=== PATIENT | male | born 1945 | race Caucasian/White ===

== ENCOUNTER 2017-12-23 12:42 | Inpatient (IN) ==
--- NOTE | 2017-12-23 13:26 | Emergency Department Note ---
ED Disposition Clinical Impression: Fracture, hip Qualifiers: Fracture type: closed Laterality: left Disposition: Admitted As Inpatient Condition on Discharge: Good Referrals: Ofe Wall [Primary Care Provider] - - Critical Care Critical Care Time: No Attestation: On 12/23/17, the high probability of a clinically significant, sudden or life threatening deterioration of the following system(s) required my full and direct attention, intervention and personal management. The time I documented below is in addition to time spent performing reported procedures but includes the following listed in this critical care notation. Medical Decision Making - Medical Records Medical records reviewed: Yes: I reviewed the patient's medical records. - [place] Inquiry Pt receiving controlled substance: No D[place] was queried for this patient: No Vital Signs: 12/23/17 12:45 Temperature 98.6 F Temperature Source Oral Pulse Rate [Right] 71 Respiratory Rate 16 Blood Pressure [Right Arm] 132/79 Blood Pressure Mean [Right Arm] 96 Blood Pressure Source [Right Arm] Automatic Cuff Blood Pressure Position [Right Arm] Supine 02 Sat by Pulse Oximetry 98 Oxygen Delivery Method Room Air Orders (Tests/Meds): ED MEDICATIONS Discontinued Medications Generic Name Dose Route Start Last Admin Trade Name Freq PRN Reason Stop Dose Admin Morphine Sulfate 4 mg 12/23/17 13:22 12/23/17 13:24 Morphine 4mg/Ml Syringe IV 12/23/17 13:23 4 mg ONCE ONE Administration Morphine Sulfate 4 mg 12/23/17 14:08 12/23/17 14:00 Morphine 4mg/Ml Syringe IV 12/23/17 14:09 4 mg ONCE ONE Administration ORDERS Category Date Time Status Chest XR -- portable [XR chest portable] Stat Exams 12/23/17 14:03 Ordered XR hip LT 2-3V w/pelvis Stat Exams 12/23/17 13:23 Taken Complete Blood Count Auto Diff Stat Lab 12/23/17 14:10 Ordered Comprehensive Metabolic Panel Stat Lab 12/23/17 14:10 Ordered - Radiology Data #1 Image(s): Hip Image Reviewed: Yes I reviewed the patient's radiology results comminuted subtrochanteric fracture - Physician Consults Physician Consulted: Dr das Time: 14:25 Reason -: Admission Additional Consult: Dr Juarez Time: 14:25 Reason -: Pt condition, Orthopedic Eval/Care Lower Extremity Injury HPI - General Chief Complaint: Fall Stated Complaint: left hip pain Time Seen by Provider: 12/23/17 13:00 Mode of Arrival: EMS Source of Information: Patient Limitations: Physical Limitations Description of Symptoms (Recalled from ER Triage Doc. by RN): left hip pain. pt. fell outisde his home after tripping over the dog. pt fell onto the concrete. pt crawled into the house and heard hip pop - History of Present Illness MD complaint: hip injury Onset (ago): hour(s) (2) Injury: Left: hip Type of Injury: blunt Place: home Severity: moderate Severity scale (1-10): 6 Relieving factors: immobilization, other (narcotics per ems) - Related Data Home Medications Medication Instructions Recorded Confirmed Amlodipine Besylate [Amlodipine 10 mg PO DAILY 12/23/17 12/23/17 10mg Tab] Aspirin [Aspir 81] 81 mg PO DAILY 12/23/17 12/23/17 Cetirizine HCl 10 mg PO DAILY 12/23/17 12/23/17 Cholecalciferol (Vitamin D3) 1,000 unit PO DAILY 12/23/17 12/23/17 [Vitamin D3 1,000 Unit Cap] Pantoprazole Sodium [Protonix 40mg 40 mg PO DAILY 12/23/17 12/23/17 tablet] Potassium Chloride [K-Tab ER 10 10 meq PO DAILY 12/23/17 12/23/17 mEq] Tiotropium [place] [Spiriva 1 puff IH DAILY 12/23/17 12/23/17 18mcg/puff inhaler] hydroCHLOROthiazide [HCTZ 25mg 25 mg PO DAILY 12/23/17 12/23/17 tab] Allergies Allergy/AdvReac Type Severity Reaction Status Date / Time No Known Allergies Allergy Verified 12/23/17 13:06 [facility] History I have reviewed the patient's past medical history: Yes Medical History: Denies:: Cancer, Diabetes Mellitus Type 1, Diabetes Mellitus Type 2, Internal Pacemaker, MRSA Other Surgeries: No: Pacemaker Amputation: No - Social History Educational Level: Completed GED/General Educational Development Smoking Status: Current every day smoker Tobacco Type: cigarettes # Packs/Day (cigarettes): 1 Alcohol Intake: current Alcohol Intake Frequency:: 0-2 drinks per day - Psychiatric History Expresses thoughts of harming self/others: None Suicide Plan Description: No Plan ROS Obtained: Yes All systems reviewed & no additional complaints - Constitutional Constitutional: Reports system reviewed and no additional complaints, except as docu - Musculoskeletal Musculoskeletal: Reports as per HPI Physical Exam - General General appearance: alert - Head Head exam: atraumatic - Respiratory Respiratory exam: Present: normal lung sounds bilaterally, respiratory distress - Cardiovascular Cardiovascular exam: Present: regular rate, normal rhythm - Expanded Lower Extremity Exam Left Hip/Pelvis exam: Present: tenderness, pain on hip/pelvis palpation, hip pain on leg movement - Neurological Exam Neurological exam: Present: alert, oriented X3
[2017-12-23 14:59] LABS: Basophils # 0.1 K/mm3 (0-0.2); Basophils % 0.5 % (0.1-2.0); Eosinophils # 0.2 K/mm3 (0.0-0.4); Eosinophils % 1.1 % (0.1-12.0); Hematocrit 48.2 % (42.0-52.0); Hemoglobin 15.9 g/dL (14.1-18.0); Lymphocytes # 1.6 K/mm3 (0.7-4.5); Lymphocytes % 8.1 K/mm3 (10-50); Mean Corpuscular HGB Conc 32.9 g/dL (31.8-35.4); Mean Platelet Volume 7.4 fl (7.4-10.4); Neutrophils # 16.9 K/mm3 (1.8-7.8); Neutrophils % 85.4 % (37.0-80.0); Platelet Count 338 K/mm3 (142-424); Red Blood Count 5.47 M/mm3 (4.60-6.20); Red Cell Distribution Width 13.1 % (11.5-17.5); White Blood Count 19.8 K/mm3 (4.8-10.8)
[2017-12-23 15:05] LABS: Albumin Level 3.1 gm/dL (3.4-5.0); Albumin/Globulin Ratio 0.8 (1.1-1.8); Anion Gap 12.1 mEq/L (5-15); Bilirubin,Total 1.1 mg/dL (0.2-1.0); Calcium 8.6 mg/dL (8.5-10.1); Potassium 3.1 mmoL/L (3.5-5.1); Total Protein,Serum 7.1 gm/dL (6.4-8.2)
[2017-12-23 15:12] LABS: Lymphocytes % 7 % (10-50); Monocytes % 2 % (2-9); Neutrophils % 89 % (42-76); RBC Morphology Normal; Total Cells Counted 100
[2017-12-23 15:45] LABS: Microscopic, Urine URINE MICROSCOPIC (MICROSCOPIC)
[2017-12-23 15:47] LABS: Appearance,Urine CLEAR (Clear); Bilirubin,Urine Negative (Negative); Blood, Urine Negative (Negative); Color,Urine YELLOW (Yellow); Glucose,Urine (UA) Negative (Negative); Ketones,Urine Negative (Negative); Leukocyte Esterase,Urine Negative (Negative); PH,Urine 6.5 (5.0-8.5); Protein,Urine Negative (Negative)
[2017-12-23 16:12] LABS: Bacteria,Urine 2+ /lpf
--- NOTE | 2017-12-23 18:30 | History & Physical Report ---
*Admission Date: 12/23/17 *Chief complaint: Fall with left hip pain *History of present illness: 72-year-old white male, with emphysema and hypertension who was going out to feed his dog today and while going out the door tripped on the door jam and fell onto his concrete porch onto his left hip area. Was unable to walk or move because of significant pain. Brought to the emergency department he was found to have a comminuted upper femoral fracture and is admitted to hospital for orthopedic consultation and surgical repair of the fracture. [facility] History I have reviewed the patient's past medical history: Yes Medical History: Reports:: Chronic Obstructive Pulmonary Disease (COPD) (Does not wear oxygen, uses daily inhalers, no nebulizer treatments), Hypertension, Renal Insufficiency Denies:: Atherosclerotic Heart Disease, Cancer, Diabetes Mellitus Type 1, Diabetes Mellitus Type 2, Internal Pacemaker, MRSA, Seizures Comment: Has fairly good exercise function. Does farm work. Does not oxygen at home. Has never had cardiac issues. Other Surgeries: No: Pacemaker Amputation: No Fractures: No - *Social History Educational Level: Attended High School Smoking Status: Current some day smoker Tobacco Type: cigarettes # Packs/Day (cigarettes): 1 Alcohol Intake: never Alcohol Intake Frequency:: 0-2 drinks per day Occupational Status: retired Housing: house Household Members: children - Psychiatric History Expresses thoughts of harming self/others: None Suicide Plan Description: No Plan *Family Hx:: No significant family history, Non-contributory Review of Systems - Constitutional Denies body ache(s), Denies chills, Denies daytime sleepiness - ENT Denies bleeding gums, Denies difficulty swallowing - *Cardiovascular Reports shortness of breath with activity (But at baseline.), Denies chest pain , Denies chest pain at rest, Denies lightheadedness, Denies shortness of breath when lying down, Denies rapid, pounding, or irregular heartbeat, Denies shortness of breath causing sudden awakening, Denies radiating jaw, neck or arm pain, Denies fast heart rate - *Respiratory Reports shortness of breath, Reports shortness of breath with activity, Denies change in phlegm color, Denies chest congestion, Denies cough - *Gastrointestinal Denies abdominal pain, Denies belching, Denies coffee ground vomit, Denies constipation, Denies cramping, Denies vomiting blood, Denies bright, red blood in stools - *Genitourinary Denies difficulty urinating, Denies painful urination - *Musculoskeletal Reports abnormal walking, Reports joint pain - *Neurologic Denies confusion, Denies seizure-like activity - Psychiatric Denies abnormal sleep pattern - Endocrine Denies cold intolerance, Denies excessive sweating, Denies rapid, pounding, or irregular heartbeat - Hematologic/Lymphatic Denies easy bleeding, Denies easy bruising Meds Home Medications Medication Instructions Recorded Confirmed Type Amlodipine Besylate [Amlodipine 10 mg PO DAILY 12/23/17 12/23/17 History 10mg Tab] Aspirin [Aspir 81] 81 mg PO DAILY 12/23/17 12/23/17 History Cetirizine HCl 10 mg PO DAILY 12/23/17 12/23/17 History Cholecalciferol (Vitamin D3) 1,000 unit PO DAILY 12/23/17 12/23/17 History [Vitamin D3 1,000 Unit Cap] Pantoprazole Sodium [Protonix 40mg 40 mg PO DAILY 12/23/17 12/23/17 History tablet] Potassium Chloride [K-Tab ER 10 10 meq PO DAILY 12/23/17 12/23/17 History mEq] Tiotropium [place] [Spiriva 1 puff IH DAILY 12/23/17 12/23/17 History 18mcg/puff inhaler] hydroCHLOROthiazide [HCTZ 25mg 25 mg PO DAILY 12/23/17 12/23/17 History tab] Allergies Allergy/AdvReac Type Severity Reaction Status Date / Time No Known Allergies Allergy Verified 12/23/17 13:06 Exam Vital signs and Labs for Last 24 Hours: Temp Pulse Resp BP Pulse Ox 97.8 F 77 16 105/70 91 L 12/23/17 15:54 12/23/17 15:54 12/23/17 15:54 12/23/17 15:54 12/23/17 15:54 Laboratory Results - last 24 hr 12/23/17 14:44: WBC 19.8 H, RBC 5.47, Hgb 15.9, Hct 48.2, MCV 88.0, MCH 29.0, MCHC 32.9, RDW 13.1, Plt Count 338, MPV 7.4, Neut % (Auto) 85.4 H, Lymph % (Auto ) 8.1 L, [place] % (Auto) 5.0, Eos % (Auto) 1.1, Baso % (Auto) 0.5, Neut # (Auto) 16.9 H, Lymph # (Auto) 1.6, [place] # (Auto) 1.0, Eos # (Auto) 0.2, Baso # (Auto) 0.1, Total Counted 100, Neutrophils % (Manual) 89 H, Lymphocytes % (Manual) 7 L , Atypical Lymphs % 2.0, Monocytes % (Manual) 2, Platelet Estimate Normal, RBC Morphology Normal 12/23/17 14:44: Sodium 139, Potassium 3.1 L, Chloride 101, Carbon Dioxide 29, Anion Gap 12.1, BUN 13, Creatinine 1.63 H, Estimated Creat Clear 57, Estimated GFR 42 L, Est GFR ( Amer) 51 L, Glucose 137 H, Calcium 8.6, Total Bilirubin 1.1 H, AST 79 H, ALT 70, Alkaline Phosphatase 80, Total Protein 7.1, Albumin 3.1 L, Globulin 4.0 H, Albumin/Globulin Ratio 0.8 L 12/23/17 14:45: Urine Color Yellow, Urine Appearance Clear, Urine pH 6.5, Ur Specific [place] 1.010, Urine Protein Negative, Urine Glucose (UA) Negative, Urine Ketones Negative, Urine Blood Negative, Urine Nitrate Negative, Urine Bilirubin Negative, Urine Urobilinogen 1.0, Ur Leukocyte Esterase Negative, Urine RBC None, Urine WBC 3-5, Ur Squamous Epith Cells 3-5, Urine Bacteria 2+ I & O for Last 24 hours: Intake & Output 12/21/17 12/22/17 12/23/17 12/24/17 11:59 11:59 11:59 11:59 Weight 205 lb 6.016 oz Narrative: Patient is awake, alert. Appears older than his stated age. Lungs have good air movement, minimal rhonchi with a deep breath. Heart rate regular without murmurs. Abdomen soft and nontender. Cranial nerves symmetric and intact. As tested. Able to move arms and legs well. Able to wiggle his toes on the left side. Good perfusion. Left leg in traction. H&P: Result - Labs Labs: Short CBC 12/23/17 Range/Units 14:44 WBC 19.8 H (4.8-10.8) K/mm3 Hgb 15.9 (14.1-18.0) g/dL Hct 48.2 (42.0-52.0) % Plt Count 338 (142-424) K/mm3 BMP 12/23/17 14:44 Sodium 139 Potassium 3.1 L Chloride 101 Carbon Dioxide 29 BUN 13 Creatinine 1.63 H Glucose 137 H Calcium 8.6 Liver Function 12/23/17 Range/Units 14:44 Total Bilirubin 1.1 H (0.2-1.0) mg/dL AST 79 H (15-37) U/L ALT 70 (12-78) U/L Alkaline Phosphatase 80 (46-116) U/L Albumin 3.1 L (3.4-5.0) gm/dL Urine 12/23/17 Range/Units 14:45 Urine Color Yellow (Yellow) Urine Appearance Clear (Clear) Urine pH 6.5 (5.0-8.5) Ur Specific [place] 1.010 (1.005-1.030) Urine Protein Negative (Negative) Urine Glucose (UA) Negative (Negative) Assessment and Plan (1) COPD with emphysema Current visit: Yes Status: Acute Category: Medical Code(s): J43.9 - Emphysema, unspecified Non-oxygen requiring, obviously patient needs to quit smoking. Currently no interest in this. Do not think this is a contraindication to surgery as he seems at his baseline. (2) Hypertension, essential Current visit: Yes Status: Acute Category: Medical Code(s): I10 - Essential (primary) hypertension Restart amlodipine. Hold HCTZ given his relative hypokalemia (3) Hypokalemia Current visit: Yes Status: Acute Category: Medical Code(s): E87.6 - Hypokalemia Probably from HCTZ. Restart home potassium dosage. (4) Fracture, hip Current visit: Yes Status: Acute Qualifiers: Fracture type: closed Laterality: left Category: Medical Code(s): S72.009A - Fracture of unspecified part of neck of unspecified femur, initial encounter for closed fracture Orthopedic consultation for repair
--- NOTE | 2017-12-23 23:49 | Consult Report ---
*Admission Date: 12/23/17 *Chief complaint: Left hip pain *History of present illness: Mr. Terry is a 72-year-old white male, admitted to hospital today from the ER with a left proximal femur fracture following a fall at home earlier today. At the time of the examination patient is on the bed and his son is with him in the room. He says he was going out to feed his dog today and while going out of the door, he tripped on the door jam and fell onto the concrete porch landing on his left hip area. He says he heard and felt a pop in his hip and was unable to get up or walk/move because of significant pain. He was brought to the emergency department where evaluation including x-rays showed a comminuted, displaced left proximal femoral fracture and is admitted to hospital for the management of the fracture. Patient denies any dizziness, headache, chest or neck pain. He denies any loss of consciousness, chest pain and shortness of breath. He lives with his son and usually walks unaided. He says the pain is well controlled at rest but trying to move the left leg causes severe hip/upper thigh pain. He is past medical history includes hypertension and emphysema. He is a chronic smoker and has been smoking for more than 50 years. Review of Systems - Review of Systems Review of systems:: pertinent systems reviewed and negative unless documented below - *Neurologic Reports abnormal walking, Denies confusion, Denies seizure-like activity [facility] History I have reviewed the patient's past medical history: Yes Medical History: Reports:: Chronic Obstructive Pulmonary Disease (COPD) (Does not wear oxygen, uses daily inhalers, no nebulizer treatments), Hypertension, Renal Insufficiency Denies:: Atherosclerotic Heart Disease, Cancer, Diabetes Mellitus Type 1, Diabetes Mellitus Type 2, Internal Pacemaker, MRSA, Seizures Other Surgeries: No: Pacemaker Amputation: No Fractures: No - *Social History Educational Level: Attended High School Smoking Status: Current some day smoker Tobacco Type: cigarettes # Packs/Day (cigarettes): 1 Alcohol Intake: never Alcohol Intake Frequency:: 0-2 drinks per day Occupational Status: retired Housing: house Household Members: children - Psychiatric History Expresses thoughts of harming self/others: None Suicide Plan Description: No Plan *Family Hx:: No significant family history, Non-contributory Meds Home Medications Medication Instructions Recorded Confirmed Type Amlodipine Besylate [Amlodipine 10 mg PO DAILY 12/23/17 12/23/17 History 10mg Tab] Aspirin [Aspir 81] 81 mg PO DAILY 12/23/17 12/23/17 History Cetirizine HCl 10 mg PO DAILY 12/23/17 12/23/17 History Cholecalciferol (Vitamin D3) 1,000 unit PO DAILY 12/23/17 12/23/17 History [Vitamin D3 1,000 Unit Cap] Budesonide/Formoterol Fumarate 2 puffs IH BID 12/24/17 12/24/17 History [Symbicort 160-4.5 Mcg Inhaler] Tiotropium [place] [Spiriva 2 puffs IH DAILY 12/24/17 12/24/17 History Respimat] raNITIdine HCl [Ranitidine HCl] 150 mg PO BID 12/24/17 12/24/17 History Allergies Allergy/AdvReac Type Severity Reaction Status Date / Time No Known Allergies Allergy Verified 12/23/17 13:06 Exam Vital signs and Labs for Last 24 Hours: Temp Pulse Resp BP Pulse Ox 98.2 F 73 18 136/75 92 L 12/23/17 19:47 12/23/17 19:47 12/23/17 19:47 12/23/17 19:47 12/23/17 19:47 Laboratory Results - last 24 hr 12/23/17 14:44: WBC 19.8 H, RBC 5.47, Hgb 15.9, Hct 48.2, MCV 88.0, MCH 29.0, MCHC 32.9, RDW 13.1, Plt Count 338, MPV 7.4, Neut % (Auto) 85.4 H, Lymph % (Auto ) 8.1 L, [place] % (Auto) 5.0, Eos % (Auto) 1.1, Baso % (Auto) 0.5, Neut # (Auto) 16.9 H, Lymph # (Auto) 1.6, [place] # (Auto) 1.0, Eos # (Auto) 0.2, Baso # (Auto) 0.1, Total Counted 100, Neutrophils % (Manual) 89 H, Lymphocytes % (Manual) 7 L , Atypical Lymphs % 2.0, Monocytes % (Manual) 2, Platelet Estimate Normal, RBC Morphology Normal 12/23/17 14:44: Sodium 139, Potassium 3.1 L, Chloride 101, Carbon Dioxide 29, Anion Gap 12.1, BUN 13, Creatinine 1.63 H, Estimated Creat Clear 57, Estimated GFR 42 L, Est GFR ( Amer) 51 L, Glucose 137 H, Calcium 8.6, Total Bilirubin 1.1 H, AST 79 H, ALT 70, Alkaline Phosphatase 80, Total Protein 7.1, Albumin 3.1 L, Globulin 4.0 H, Albumin/Globulin Ratio 0.8 L 12/23/17 14:45: Urine Color Yellow, Urine Appearance Clear, Urine pH 6.5, Ur Specific [place] 1.010, Urine Protein Negative, Urine Glucose (UA) Negative, Urine Ketones Negative, Urine Blood Negative, Urine Nitrate Negative, Urine Bilirubin Negative, Urine Urobilinogen 1.0, Ur Leukocyte Esterase Negative, Urine RBC None, Urine WBC 3-5, Ur Squamous Epith Cells 3-5, Urine Bacteria 2+ 12/23/17 17:00: Blood Type O Positive, Antibody Screen Negative I & O for Last 24 hours: Intake & Output 12/21/17 12/22/17 12/23/17 12/24/17 11:59 11:59 11:59 11:59 Weight 205 lb 6.016 oz Narrative: Physical examination: General Appearance: normal appearance, well built. No acute distress. ENT: mucous membranes moist Neck: normal inspection, non-tender, supple, full range of motion, trachea central Respiratory: trachea midline, chest symmetrical, non tender chest. No respiratory distress. Normal breath sounds bilaterally, lungs clear to auscultation. Cardiovascular: normal exam, regular rate/rhythm, no peripheral edema, no gallop , no JVD, no murmur, no rub, normal peripheral pulses Gastrointestinal: Abdomen is soft and nontender, normal bowel sounds over all 4 quadrants, no organomegaly, no CVA tenderness. Neurologic: alert, oriented x 3; cranial nerves II-12: intact; no focal deficits noted Mental status: Appropriate mood/affect for the situation Skin: intact, normal color, warm/dry On examination of his lower extremities, the left leg is shortened and the foot is externally rotated. On examination of the left hip the skin is normal. No rashes or lesions noted. He is tender over the left hip. Any attempted movements of the left hip are painful. Thigh and calf are soft and nontender. Dorsalis pedis and posterior tibial pulses are palpable 2+ bilaterally. Sensation is grossly intact. He has good range of foot, ankle and toe movements. Examination of right hip/thigh is unremarkable Imaging: X-rays of his pelvis AP view, left hip lateral view and left femur AP and lateral views are showing a comminuted, displaced, unstable intertrochanteric/subtrochanteric fracture of the left proximal femur. Hip joint is fairly well-preserved. The distal femur appears normal except for a degree of osteopenia. No evidence of any metastatic lesions noted. Results - Labs Result Diagrams: 12/26/17 07:20 12/26/17 07:20 Labs: Abnormal lab results 12/23/17 12/23/17 Range/Units 14:44 14:44 WBC 19.8 H (4.8-10.8) K/mm3 Neut % (Auto) 85.4 H (37.0-80.0) % Lymph % (Auto) 8.1 L (10-50) K/mm3 Neut # (Auto) 16.9 H (1.8-7.8) K/mm3 Neutrophils % (Manual) 89 H (42-76) % Lymphocytes % (Manual) 7 L (10-50) % Potassium 3.1 L (3.5-5.1) mmoL/L Creatinine 1.63 H (0.70-1.30) mg/dL Estimated GFR 42 L (>60) ml/min Est GFR ( Amer) 51 L (>60) ML/MIN Glucose 137 H (74-106) mg/dL Total Bilirubin 1.1 H (0.2-1.0) mg/dL AST 79 H (15-37) U/L Albumin 3.1 L (3.4-5.0) gm/dL Globulin 4.0 H (1.3-3.2) gm/dl Albumin/Globulin Ratio 0.8 L (1.1-1.8) H & H 12/23/17 Range/Units 14:44 Hgb 15.9 (14.1-18.0) g/dL Hct 48.2 (42.0-52.0) % All other labs normal. Assessment and Plan (1) COPD with emphysema Status: Acute Category: Medical Code(s): J43.9 - Emphysema, unspecified (2) Hypertension, essential Status: Acute Category: Medical Code(s): I10 - Essential (primary) hypertension (3) Hypokalemia Status: Acute Category: Medical Code(s): E87.6 - Hypokalemia (4) Fracture, hip Status: Acute Qualifiers: Fracture type: closed Laterality: left Category: Medical Code(s): S72.009A - Fracture of unspecified part of neck of unspecified femur, initial encounter for closed fracture I reviewed the clinical and imaging findings with the patient and on his son who was with the patient in the room. I have discussed the diagnosis and management options in detail including both nonsurgical and surgical. I have recommended surgical remediation in the form of a femoral nailing (cephalo- medullary nailing). I explained the procedure, risks and benefits, alternatives and the expected postoperative course and outcome. I explained to the patient and his son the type of the fracture and the proposed surgical procedure using copies of the x-rays, pictures from the Internet and drawings. The complications discussed include but are not limited to infection, bleeding, injury to nerves and blood vessels, DVT, PE, screw cut-out/implant failure, loss of fixation, nonunion, malunion/malrotation, osteonecrosis of the femoral head, femoral shaft fracture, painful hardware, heterotopic ossification, stiffness, weakness, incomplete relief of pain, incomplete return of function or motion and the likely need for further surgery in future, and anesthetic/ medical complications including heart attack, stroke, transfusion reaction or . We discussed how any of these events can be devastating. I've explained that the patient is at a significant surgical risk due to his age, and other medical comorbidities, and fragility of the bone. Family and patient seemed to understand and accept these risks. We have discussed nonsurgical alternatives as well. The nonoperative management would essentially consist of prolonged bed rest and traction (skeletal/skin) in bed and pain medication and has exceptionally poor outcome. This could result in nonunion and malunion of the fracture and almost certainly, the patient has a very high risk of decubitus ulcers, UTI, respiratory tract infections, DVT/PE and other complications from being bedridden. I have explained to them that the standard of care for this sort of injuries is surgical throughout the country unless the patient is very ill for surgical management. We also discussed the postoperative course including the rehab and physical therapy required. Patient was fairly mobile and active and living with his son prior to the injury but may need short-term placement in a snf facility for rehab after surgery. All their questions were answered and they verbalized a good understanding. We will await medical clearance by Dr. Lee team. Well also obtain a preoperative anesthetic evaluation. The limb was marked appropriately and initialed by me. I have recommended- Type and screen Nothing by mouth after midnight Continue IV fluids Analgesia as needed Consent patient for a cephalo-medullary nailing LEFT hip. Order 2 g of IV Ancef for preoperative prophylaxis to start half an hour before surgery I have strongly advised him to stop smoking completely and explained the rationale behind this advice. I am planning to take him for surgery at the earliest opportunity tomorrow. Continue medical management as per Dr. Fernandes. Thank you for the opportunity to take part in the care of this very pleasant patient.
--- NOTE | 2017-12-24 07:33 | Pharmacy Consult Notes ---
[facility] Pharmacy VTE Monitoring - Patient Demographics Admission date: 12/23/17 Report Date: 12/24/17 Time: 07:33 Allergies/Adverse Reactions: Patient Allergies No Known Allergies Allergy (Verified 12/23/17 13:06) Height: 1.75 m Weight: 93.157 kg Patient Problems: Current Active Problems Fracture, hip (Acute) COPD with emphysema (Acute) Hypertension, essential (Acute) Hypokalemia (Acute) - VTE Risk Labs: VTE Related Lab Results Hgb 15.9 g/dL (14.1-18.0) 12/23/17 14:44 Hct 48.2 % (42.0-52.0) 12/23/17 14:44 Plt Count 338 K/mm3 (142-424) 12/23/17 14:44 BUN 13 mg/dL (7-18) 12/23/17 14:44 Creatinine 1.63 mg/dL (0.70-1.30) H 12/23/17 14:44 Estimated Creat Clear 57 mL/min (0-300) 12/23/17 14:44 VTE Score: 4 VTE Risk Level: Low Risk - Prophylaxis VTE Prophylaxis Ordered?: Yes Types of VTE Prophylaxis: TEDS Knee High Location of Applied Device: Bilateral Lower Extremeties - VTE Diagnosis Confirmed Treatment or plan recommended: Continue Current Treatment
--- NOTE | 2017-12-24 07:42 | Progress Note ---
Internal Medicine - PN: Subj *Date: 12/24/17 *Time: 07:41 Interval history: Patient did well overnight, no chest pain or breathing problems. Continues to have some pain in the leg with any kind of movement. Exam Vital signs and Labs for Last 24 Hours: Temp Pulse Resp BP Pulse Ox 99.5 F 82 20 129/67 95 12/24/17 07:33 12/24/17 07:33 12/24/17 07:33 12/24/17 07:33 12/24/17 07:33 Laboratory Results - last 24 hr 12/23/17 14:44: WBC 19.8 H, RBC 5.47, Hgb 15.9, Hct 48.2, MCV 88.0, MCH 29.0, MCHC 32.9, RDW 13.1, Plt Count 338, MPV 7.4, Neut % (Auto) 85.4 H, Lymph % (Auto ) 8.1 L, [place] % (Auto) 5.0, Eos % (Auto) 1.1, Baso % (Auto) 0.5, Neut # (Auto) 16.9 H, Lymph # (Auto) 1.6, [place] # (Auto) 1.0, Eos # (Auto) 0.2, Baso # (Auto) 0.1, Total Counted 100, Neutrophils % (Manual) 89 H, Lymphocytes % (Manual) 7 L , Atypical Lymphs % 2.0, Monocytes % (Manual) 2, Platelet Estimate Normal, RBC Morphology Normal 12/23/17 14:44: Sodium 139, Potassium 3.1 L, Chloride 101, Carbon Dioxide 29, Anion Gap 12.1, BUN 13, Creatinine 1.63 H, Estimated Creat Clear 57, Estimated GFR 42 L, Est GFR ( Amer) 51 L, Glucose 137 H, Calcium 8.6, Total Bilirubin 1.1 H, AST 79 H, ALT 70, Alkaline Phosphatase 80, Total Protein 7.1, Albumin 3.1 L, Globulin 4.0 H, Albumin/Globulin Ratio 0.8 L 12/23/17 14:45: Urine Color Yellow, Urine Appearance Clear, Urine pH 6.5, Ur Specific [place] 1.010, Urine Protein Negative, Urine Glucose (UA) Negative, Urine Ketones Negative, Urine Blood Negative, Urine Nitrate Negative, Urine Bilirubin Negative, Urine Urobilinogen 1.0, Ur Leukocyte Esterase Negative, Urine RBC None, Urine WBC 3-5, Ur Squamous Epith Cells 3-5, Urine Bacteria 2+ 12/23/17 17:00: Blood Type O Positive, Antibody Screen Negative I & O for Last 24 hours: Intake & Output 12/21/17 12/22/17 12/23/17 12/24/17 11:59 11:59 11:59 11:59 Intake Total 0 / 0 Output Total 600 / 600 Balance -600 / -600 Weight 205 lb 6.016 oz Narrative: Patient is awake, alert. Heart rate regular, lungs have good air movement. No edema distally. Assessment and Plan (1) COPD with emphysema Current visit: Yes Status: Acute Category: Medical Code(s): J43.9 - Emphysema, unspecified (2) Hypertension, essential Current visit: Yes Status: Acute Category: Medical Code(s): I10 - Essential (primary) hypertension (3) Hypokalemia Current visit: Yes Status: Acute Category: Medical Code(s): E87.6 - Hypokalemia (4) Fracture, hip Current visit: Yes Status: Acute Qualifiers: Fracture type: closed Laterality: left Category: Medical Code(s): S72.009A - Fracture of unspecified part of neck of unspecified femur, initial encounter for closed fracture - Assessment and plan all Dx Assessment and Plan for all problems:: Plan for surgery today with ORIF of fracture. Watch electrolytes and blood counts tomorrow. Care management consultation for rehabilitation evaluation.
--- NOTE | 2017-12-24 08:42 | Progress Note ---
[facility] Anesthesia Checklist - Patient Identification Patient Identification: Arm Band, Verbal (Name & ) - Structural Data Admitted From: Inpatient Planned Operative Procedure/s: hip nailing Consent for Planned Operative Procedure(s) Verified: Yes Verified Documents: Surgical Consent, History and Physical - NPO Status Verified Time NPO: 00:00 - Chart Verification Results Verified: CBC, BMP - Additional verifications Patient : No Anesthesia Reactions: No Hx Blood Transfusions: No Blood Transfusion Reaction: No Cephalosporin Allergy: No Previous Colonoscopy: No - Cardiovascular Assessment Heart Sounds: S1 & S2 Pulse Strength: Baseline Pulse Rhythm: Regular - Airway Assessment C-Spine Mobility Assessed: Yes TMJ Mobility Assessed: Yes Dentition: Good Dentition - Neurological Assessment Level of Consciousness: Awake, Alert, Appropriate Hx Seizures: No Numbness or tingling in extremities: No - Anesthesia Plan Anesthesia Risk discussed: Yes Anesthesia Plan: Verified ASA Class: III Anesthesia Type: General [facility] Anesthesia HX I have reviewed the patient's past medical history: Yes Medical History: Reports:: Chronic Obstructive Pulmonary Disease (COPD) (Does not wear oxygen, uses daily inhalers, no nebulizer treatments), Hypertension, Renal Insufficiency Denies:: Atherosclerotic Heart Disease, Cancer, Diabetes Mellitus Type 1, Diabetes Mellitus Type 2, Internal Pacemaker, MRSA, Seizures Other Surgeries: No: Pacemaker Amputation: No Fractures: Yes *Family Hx:: No significant family history, Non-contributory
--- NOTE | 2017-12-24 12:39 | Progress Note ---
[facility] Anesthesia Record Part I Intake, IV Amount: 800 Estimated blood loss (mL): 250 Urine output (mL): 300 Blood Products used (#): none Blood Pressure: 131/70 SaO2: 90 Pulse Rate: 103 Respiratory Rate: 18 Temperature: 98.0 F Patient is:: Drowsy, Mask O2, Stable Stable to PACU at:: 12:35
--- NOTE | 2017-12-24 12:41 | Progress Note ---
[facility] Anesthesia Record Part II Discharge Time: 13:05 Destination: Medical Surgical Department PACU nurse assessment reviewed?: Yes Patient Condition:: Good Anesthesia Complications:: None
--- NOTE | 2017-12-24 12:47 | Operative Note ---
Date of procedure: 12/24/17 Pre-op Diagnosis:: Comminuted intertrochanteric fracture, left femur Post-op Diagnosis:: Comminuted intratrochanteric fracture, left femur Procedure performed:: Cephalo-medullary (Gamma) nailing, left femur Surgeon:: Shabbir Juarez MD Manager Of Hospital(s):: Angelique Peck PIGMENT PUSHER:: Ben Bonner Anesthesia: GETA Estimated blood loss (mL): 200 Clinical Note:: Patient is a 72-year-old male who had a mechanical fall sustaining an injury to his left hip on 12/23/2017. Following evaluation in the emergency room where x- ray showed a displaced and comminuted intertrochanteric fracture of the left proximal femur, he was admitted for further management. After evaluating him, I discussed the diagnosis and management options in detail including nonsurgical and surgical, with the patient and his family. Prior to the injury patient was active and mobile independently and was living with his son. After a detailed discussion with the patient and his family a decision was made to fix the fracture internally with a cephalo-medullary nail. I discussed the procedure, risks and benefits, postoperative recovery and rehabilitation and the expected outcomes. The complications discussed include but are not limited to DVT, PE, infection, bleeding, injury to nerves and blood vessels, screw cut-out/implant failure, loss of fixation, nonunion, malunion/malrotation, osteonecrosis of the femoral head, femoral shaft fracture, painful hardware, heterotopic ossification , stiffness, weakness, incomplete relief of pain, incomplete return of function or motion and the likely need for further surgery in future, and anesthetic/ medical complications including heart attack, stroke, transfusion reaction or . The patient and his family wished to proceed with the surgical remediation. Consent form was reviewed and signed by me. The limb was appropriately marked and initialed by me. Following appropriate preoperative workup and medical clearance, she was brought to the operating room for surgery. The surgery is indicated to reduce and stabilize the fracture, relieve pain and improve function. He is past medical history includes hypertension and emphysema. He is a chronic smoker and has been smoking for more than 50 years. Patient understood the risks, agreed to proceed with surgery, signed the consent form and no guarantees or assurances were given or implied. Operative findings:: Comminuted, displaced and unstable intertrochanteric fracture left proximal femur as noted on the preoperative x-rays. The fracture was difficult to reduce anatomically with closed manipulation prior to fixation. Therefore, a small incision was made at the level of the lesser trochanter and the proximal fragment was reduced onto the main distal fragment with a bone hook. There were multiple small comminuted fractures most of which fell into place in reasonable alignment. However, the lesser trochanter fragment was displaced quite far anteriorly and superiorly and therefore no attempt was made to reduce this fragment. The bone quality was good. Operative note:: Following appropriate preoperative workup and medical clearance, patient was brought to the operating room and a general anesthesia was administered by the anesthesia team. Patient was then positioned supine on the fracture table and all the bony prominences were appropriately padded. The left foot was secured in the footplate and the footplate was attached to the fracture table. The right leg was placed out of the way in a leg crowell. Under fluoroscopic guidance the fracture reduction was attempted but a satisfactory reduction could not be obtained. Therefore, we decided to proceed with the nailing and perform an open reduction if required at the time of introduction of the nail as needed. The left hip and thigh were then prepped and draped in the usual sterile fashion. Administration of prophylactic antibiotics was confirmed with the anesthetic team. A preprocedure timeout was performed as per the hospital protocol. After marking the level of the greater trochanter on the skin under fluoroscopy, a skin incision was made proximal to the greater trochanter in line with the femoral shaft. The dissection was then carried through the subcutaneous tissue. The tensor fascia muscle was split in line with the fibers. This provided access to the tip of the greater trochanter. Under fluoroscopic guidance a guidewire was placed at the tip of the greater trochanter, the position was confirmed on both fluoroscopic views and advanced into the proximal femur. The proximal segment was then reamed over the guidewire and the guidewire was exchanged for a ball-tipped guidewire; we used the reduction tool to obtain satisfactory reduction of the main fracture fragments and advanced the ball-tipped guidewire into the distal femur. The position of the guidewire was confirmed in both AP and lateral views. Then sequential reaming was performed over the guidewire up to 12.5 mm reamer. The required nail length was measured. A 125 degree angle, 11 mm diameter, long left alena Gamma 3 nail was selected. The selected nail was attached to the proximal jig and the nail was then inserted into the femur under fluoroscopic guidance. After seating the nail to the appropriate level, we noticed that the distal fragment is significantly displaced in a posterolateral direction. Attempts to reduce this into better position was unsuccessful. Therefore, we removed the nail leaving the guidewire in place and reduced the main distal fragments to a better alignment by performing an open reduction at the fracture site. We made a skin incision over the lateral thigh at the level of the fracture. The incision was deepened through soft tissue and the fascia naila and the muscle was split. We have noticed extensive comminution of the fracture fragments with the greater trochanter split in multiple planes. After achieving satisfactory reduction of the main proximal and distal fragments, I reintroduced the nail over the guidewire. This gave us a fairly satisfactory reduction and we then proceeded to introduce the lag screw. We used the rapt[employer]fm computer navigation system for placement of the lag screw. The lag screw sheath assembly was placed through the appropriate hole in the jig and locked in place. The trocar was removed and a guide pin was placed into the femoral head under fluoroscopic control. After confirming satisfactory placement of the guidepin in both AP and lateral fluoroscopic views the length was measured. A 110 mm lag screw was then selected. Drilling was performed over the guidewire for the lag screw. The lag screw was then introduced over the guidewire and advanced to an appropriate level. The traction was reduced and fracture site compressed. The lag screw was secured in place with the set screw. The guide pin and sheath were then removed. After final seating of the lag screw the tip apex distance was 16 mm. I then proceeded to perform the distal locking- we used the Alena Gamma nail distal locking jig for this. After appropriately lining the drill sleeve and nail under fluoroscopic guidance, the drill sleeve was placed through the dynamic hole and a 1 cm skin incision was made. Through the drill sleeve the 4.3 mm drill was introduced and the drill hole made for the distal locking screw. The screw length was measured and a 5 mm x 50 mm cortical bone screw was introduced through the dynamic locking hole. We then repeated the same procedure for the static screw hole and placed a 5 mm x 45 mm screw to the static hole. The distal and proximal jigs were then removed and fluoroscopic screening was performed in both the AP and lateral views. The reduction and fixation were noted to be satisfactory and stable. Fluoroscopic images were obtained and stored digitally. The wounds were washed out with normal saline and hemostasis was obtained with the diathermy cautery. The wounds were then closed in layers with the 0 Vicryl, 2-0 Vicryl and 4-0 Monocryl subcuticular sutures, Dermabond and Steri-Strips to the skin. 25 mL of 0.5 percent Marcaine was injected into the skin and subcutaneous tissue around the incisions for postoperative pain relief. Sterile dressings were applied. The foot was taken out of the foot crowell and the opposite leg out of the leg crowell and placed on the table extension. The limb lengths were noted to be equal and there was no rotational malalignment. Dorsalis pedis and posterior tibial pulses were 1+ on both sides. At the end of the procedure, swab, needle and instrument counts were correct according to the scrub team. Patient was then transferred onto the bed. Patient was then transported to the PACU in a stable condition. Patient tolerated the procedure well and there were no immediate complications. Portable x-rays of the hip/femur AP and cross-table lateral views were obtained in the PACU and were noted to be satisfactory. Postoperatively patient will receive further doses of prophylactic antibiotics, DVT prophylaxis as per protocol and IV and oral analgesia as needed. Medical management as per Dr. Lee team. Patient can be mobilized on the first postoperative day with a walker, weight bearing on the LEFT side as tolerated. Implants: Alena Gamma 3 long nailing system-125 degree angle, 11 mm diameter, long left alena Gamma 3 nail, 10.5 mm x 110 mm lag screw, 5 mm x 50 mm and 5 mm x 45 mm distal locking screws. (Industry guest services representative: Matias Ng from [facility]) Condition: stable Disposition: floor Specimens:: None Complications:: None
[2017-12-25 07:19] LABS: Basophils # 0.1 K/mm3 (0-0.2); Basophils % 0.3 % (0.1-2.0); Eosinophils # 0.4 K/mm3 (0.0-0.4); Eosinophils % 2.3 % (0.1-12.0); Hematocrit 33.6 % (42.0-52.0); Lymphocytes # 2.3 K/mm3 (0.7-4.5); Lymphocytes % 14.5 K/mm3 (10-50); Mean Corpuscular HGB Conc 32.8 g/dL (31.8-35.4); Mean Corpuscular Hemoglobin 29.2 pg (27.0-31.2); Mean Platelet Volume 8.5 fl (7.4-10.4); Monocytes # 1.2 K/mm3 (0.1-1.0); Monocytes % 7.5 % (1.7-9.3); Neutrophils % 75.4 % (37.0-80.0); Platelet Count 269 K/mm3 (142-424); Red Blood Count 3.77 M/mm3 (4.60-6.20); Red Cell Distribution Width 13.2 % (11.5-17.5); White Blood Count 15.9 K/mm3 (4.8-10.8)
[2017-12-25 07:29] LABS: Albumin Level 2.5 gm/dL (3.4-5.0); Albumin/Globulin Ratio 0.7 (1.1-1.8); Anion Gap 9.9 mEq/L (5-15); Bilirubin,Total 0.6 mg/dL (0.2-1.0); Globulin 3.5 gm/dl (1.3-3.2)
[2017-12-25 07:33] LABS: Potassium 2.9 mmoL/L (3.5-5.1)
--- NOTE | 2017-12-25 07:51 | Progress Note ---
Internal Medicine - PN: Subj *Date: 12/25/17 *Time: 07:50 Interval history: Patient had good operative result yesterday. This morning other than concerns about possible pain with physical therapy he feels well, no breathing problems. Exam Vital signs and Labs for Last 24 Hours: Temp Pulse Resp BP Pulse Ox 98.0 F 97 H 20 135/60 93 L 12/25/17 07:42 12/25/17 07:42 12/25/17 07:42 12/25/17 07:42 12/25/17 07:42 Laboratory Results - last 24 hr 12/25/17 06:50: WBC 15.9 H, RBC 3.77 L D, Hgb 11.0 L, Hct 33.6 L, MCV 89.0, MCH 29.2, MCHC 32.8, RDW 13.2, Plt Count 269, MPV 8.5, Neut % (Auto) 75.4, Lymph % ( Auto) 14.5, [place] % (Auto) 7.5, Eos % (Auto) 2.3, Baso % (Auto) 0.3, Neut # (Auto ) 12.0 H, Lymph # (Auto) 2.3, [place] # (Auto) 1.2 H, Eos # (Auto) 0.4, Baso # ( Auto) 0.1 12/25/17 06:50: Sodium 138, Potassium 2.9 L*, Chloride 101, Carbon Dioxide 30, Anion Gap 9.9, BUN 21 H D, Creatinine 1.64 H, Estimated Creat Clear 55, Estimated GFR 42 L, Est GFR ( Amer) 51 L, Glucose 114 H, Calcium 8.0 L, Total Bilirubin 0.6, AST 77 H, ALT 87 H, Alkaline Phosphatase 68, Total Protein 6.0 L, Albumin 2.5 L, Globulin 3.5 H, Albumin/Globulin Ratio 0.7 L I & O for Last 24 hours: Intake & Output 12/22/17 12/23/17 12/24/17 12/25/17 11:59 11:59 11:59 11:59 Intake Total 0 / 0 1880 / 1880 Output Total 600 / 600 1100 / 1100 Balance -600 / -600 780 / 780 Weight 205 lb 6.016 oz Microbiology Reports for the Last 24 Hours: Microbiology 12/23/17 14:45 Urine,Catheterized Urine Culture - Preliminary NO GROWTH AFTER 24 HOURS Narrative: Heart rate regular, lungs clear. Abdomen soft, able to wiggle his toes well. No pain with foot movement. Good distal pulses and perfusion. Assessment and Plan (1) COPD with emphysema Current visit: Yes Status: Acute Category: Medical Code(s): J43.9 - Emphysema, unspecified (2) Hypertension, essential Current visit: Yes Status: Acute Category: Medical Code(s): I10 - Essential (primary) hypertension (3) Hypokalemia Current visit: Yes Status: Acute Category: Medical Code(s): E87.6 - Hypokalemia (4) Fracture, hip Current visit: Yes Status: Acute Qualifiers: Fracture type: closed Laterality: left Category: Medical Code(s): S72.009A - Fracture of unspecified part of neck of unspecified femur, initial encounter for closed fracture - Assessment and plan all Dx Assessment and Plan for all problems:: Overall doing well. Plan for physical therapy evaluation today transfer to skilled rehab tomorrow.
[2017-12-25 09:42] LABS: Lymphocytes % 12 % (10-50); Monocytes % 5 % (2-9); Neutrophils % 81 % (42-76); Total Cells Counted 100
--- NOTE | 2017-12-25 13:52 | Progress Note ---
Subjective Date: 12/25/17 Time: 13:00 Principal diagnosis: Status post cephalo-medullary nailing, left femur Interval history: Patient is status post cephalo-medullary nailing LEFT femur post op day #1. Patient is sitting out in the chair. Says is doing well and reports no problems. Patient has minimal pain and says it's well-controlled with medication. No history of any nausea or vomiting. Patient says he is eating and drinking well. No history of any distal tingling or numbness. PN: Obj Ex Vital signs: Temp Pulse Resp BP Pulse Ox 98.0 F 97 H 20 135/60 93 L 12/25/17 07:42 12/25/17 07:42 12/25/17 07:42 12/25/17 07:42 12/25/17 07:42 Narrative: Laboratory Results - last 24 hr 12/25/17 06:50: WBC 15.9 H, RBC 3.77 L D, Hgb 11.0 L, Hct 33.6 L, MCV 89.0, MCH 29.2, MCHC 32.8, RDW 13.2, Plt Count 269, MPV 8.5, Neut % (Auto) 75.4, Lymph % ( Auto) 14.5, [place] % (Auto) 7.5, Eos % (Auto) 2.3, Baso % (Auto) 0.3, Neut # (Auto ) 12.0 H, Lymph # (Auto) 2.3, [place] # (Auto) 1.2 H, Eos # (Auto) 0.4, Baso # ( Auto) 0.1, Total Counted 100, Neutrophils % (Manual) 81 H, Band Neutrophils % 2.0, Lymphocytes % (Manual) 12, Monocytes % (Manual) 5, Platelet Estimate Normal 12/25/17 06:50: Sodium 138, Potassium 2.9 L*, Chloride 101, Carbon Dioxide 30, Anion Gap 9.9, BUN 21 H D, Creatinine 1.64 H, Estimated Creat Clear 55, Estimated GFR 42 L, Est GFR ( Amer) 51 L, Glucose 114 H, Calcium 8.0 L, Total Bilirubin 0.6, AST 77 H, ALT 87 H, Alkaline Phosphatase 68, Total Protein 6.0 L, Albumin 2.5 L, Globulin 3.5 H, Albumin/Globulin Ratio 0.7 L Intake & Output 12/23/17 12/24/17 12/25/17 12/26/17 11:59 11:59 11:59 11:59 Intake Total 0 / 0 1880 / 1880 Output Total 600 / 600 1100 / 1100 Balance -600 / -600 780 / 780 Weight 205 lb 6.016 oz Exam General appearance: alert, active, awake, no acute distress Cardiovascular: regular rate & rhythm, normal peripheral pulses Respiratory: No respiratory distress, normal breath sounds ABD: normal exam; soft and non tender Neuro: alert, no deficit, oriented x 3 Psych: normal mood and affect On examination of the lower extremities the limb lengths are equal. Thigh and calf are soft and nontender. On examination of the LEFT hip the dressings are clean, dry and intact. Distal pulses are 2+. Distal sensation is intact to light touch throughout. No motor deficits noted distally. - Urinary Catheter Management Tinsley Cath placed during this visit: yes Urethral indwelling: No Insertion date: 12/23/17 Insertion time: 14:30 Progress Note: A&P (1) COPD with emphysema Status: Acute (2) Hypertension, essential Status: Acute (3) Hypokalemia Status: Acute (4) Fracture, hip Status: Acute Assessment and Plan for All Diagnoses:: Post op patient plan I reviewed the clinical and operative findings and procedure performed with the patient and his daughter. Patient is doing very well and reports no problems. Patient started mobilizing well weightbearing as tolerated on the LEFT side with the walker and to continue the same. Continue DVT prophylaxis. Care management consult regarding discharge planning. Medical management as per Dr. Fernandes.
--- NOTE | 2017-12-26 07:23 | Discharge Summary ---
General - General Admission date:: 12/23/17 Discharge date: 12/26/17 HPI HPI: 72-year-old white male, with emphysema and hypertension who was going out to feed his dog today and while going out the door tripped on the door jam and fell onto his concrete porch onto his left hip area. Was unable to walk or move because of significant pain. Brought to the emergency department he was found to have a comminuted upper femoral fracture and is admitted to hospital for orthopedic consultation and surgical repair of the fracture. Hospital Course Hospital Course: Patient was admitted, cleared for surgery following day subjected to ORIF of the left upper femur fracture. This went well. He did well over the next day or so, PT was able to get him to transfer and do initial PT evaluation. He was found to be slightly hypokalemic yesterday, repeat potassium is pending. He also through the night had some shortness of air and coughing. He was started on nebulizer treatments-patient has a diagnosis of emphysema but is never been on medications, and was given Lasix which resolved his symptoms and this morning he is doing much better. Please see exam notes below. [place] [facility] [place]. He will need to be on oxygen at 2 L nasal cannula for the time being. Medications will be as noted. Please note he will need a CBC and BMP on 12/30/17. Objective Vital signs: Temp Pulse Resp BP Pulse Ox 97.8 F 96 H 28 H 145/69 90 L 12/26/17 04:15 12/26/17 05:45 12/26/17 04:15 12/26/17 04:15 12/26/17 05:45 Narrative: Patient is alert and awake this morning. Using 2 L nasal cannula with O2 saturations 93%. Lungs have rhonchi in both bases but good air movement, no wound. Heart rate regular. Abdomen soft, no distal edema in his extremities. Wiggles his toes well. He sitting up in a chair with minimal pain. Please see orthopedic notes about surgical wound status. Results Labs on day of discharge: Labs from last 24 hours 12/25/17 12/25/17 06:50 06:50 WBC 15.9 H RBC 3.77 L D Hgb 11.0 L Hct 33.6 L MCV 89.0 MCH 29.2 MCHC 32.8 RDW 13.2 Plt Count 269 MPV 8.5 Neut % (Auto) 75.4 Lymph % (Auto) 14.5 [place] % (Auto) 7.5 Eos % (Auto) 2.3 Baso % (Auto) 0.3 Neut # (Auto) 12.0 H Lymph # (Auto) 2.3 [place] # (Auto) 1.2 H Eos # (Auto) 0.4 Baso # (Auto) 0.1 Total Counted 100 Neutrophils % (Manual) 81 H Band Neutrophils % 2.0 Lymphocytes % (Manual) 12 Monocytes % (Manual) 5 Platelet Estimate Normal Sodium 138 Potassium 2.9 L* Chloride 101 Carbon Dioxide 30 Anion Gap 9.9 BUN 21 H D Creatinine 1.64 H Estimated Creat Clear 55 Estimated GFR 42 L Est GFR ( Amer) 51 L Glucose 114 H Calcium 8.0 L Total Bilirubin 0.6 AST 77 H ALT 87 H Alkaline Phosphatase 68 Total Protein 6.0 L Albumin 2.5 L Globulin 3.5 H Albumin/Globulin Ratio 0.7 L DS: Diagnosis - Discharge Diagnosis (1) COPD with emphysema Status: Acute (2) Hypertension, essential Status: Acute (3) Hypokalemia Status: Acute (4) Fracture, hip Status: Acute Discharge Plan - Patient Discharge Instructions ACTIVITY: Continue current activity, Limited activity, Up with assistance DIET: continue same diet - Follow up Plan Follow up with: Ella Spears APRN [Nurse Practitioner] - 01/01/18 Disposition: Xfer [facility] Home Medications: Home Medications Medication Instructions Recorded Confirmed Type Amlodipine Besylate [Amlodipine 10 mg PO DAILY 12/23/17 12/23/17 History 10mg Tab] Aspirin [Aspir 81] 81 mg PO DAILY 12/23/17 12/23/17 History Cetirizine HCl 10 mg PO DAILY 12/23/17 12/23/17 History Cholecalciferol (Vitamin D3) 1,000 unit PO DAILY 12/23/17 12/23/17 History [Vitamin D3 1,000 Unit Cap] hydroCHLOROthiazide [HCTZ 25mg 25 mg PO DAILY 12/23/17 12/23/17 History tab] Budesonide/Formoterol Fumarate 2 puffs IH BID 12/24/17 12/24/17 History [Symbicort 160-4.5 Mcg Inhaler] Tiotropium [place] [Spiriva 2 puffs IH DAILY 12/24/17 12/24/17 History Respimat] raNITIdine HCl [Ranitidine HCl] 150 mg PO BID 12/24/17 12/24/17 History Prescriptions/Medication Reconciliation: New Ipratropium/Albuterol Sulfate [Duoneb 3mL neb] 3 ml IH TID #90 neb Hydrocod/Acet 5/325 mg [[place] 5/325mg tablet] 1 - 2 tab PO Q6HP PRN #30 tab PRN Reason: Moderate To Severe Pain Continue Cholecalciferol (Vitamin D3) [Vitamin D3 1,000 Unit Cap] 1,000 unit PO DAILY Amlodipine Besylate [Amlodipine 10mg Tab] 10 mg PO DAILY Cetirizine HCl 10 mg PO DAILY Budesonide/Formoterol Fumarate [Symbicort 160-4.5 Mcg Inhaler] 2 puffs IH BID Aspirin [Aspir 81] 81 mg PO DAILY Tiotropium [place]xton [Spiriva Respimat] 2 puffs IH DAILY raNITIdine HCl [Ranitidine HCl] 150 mg PO BID Changed Pantoprazole Sodium [Protonix 40mg tablet] 40 mg PO BID 60 Days tablet. Potassium Chloride [K-Tab ER 10 mEq] 20 meq PO BID #60 tablet.er Discontinued hydroCHLOROthiazide [HCTZ 25mg tab] 25 mg PO DAILY
[2017-12-26 07:28] LABS: Basophils # 0.1 K/mm3 (0-0.2); Basophils % 0.5 % (0.1-2.0); Eosinophils # 0.6 K/mm3 (0.0-0.4); Eosinophils % 3.7 % (0.1-12.0); Hematocrit 35.3 % (42.0-52.0); Hemoglobin 11.2 g/dL (14.1-18.0); Lymphocytes # 2.6 K/mm3 (0.7-4.5); Lymphocytes % 17.5 K/mm3 (10-50); Mean Corpuscular HGB Conc 31.7 g/dL (31.8-35.4); Mean Corpuscular Hemoglobin 28.6 pg (27.0-31.2); Mean Corpuscular Volume 90.1 fl (80-94); Mean Platelet Volume 9.2 fl (7.4-10.4); Monocytes # 1.1 K/mm3 (0.1-1.0); Monocytes % 7.5 % (1.7-9.3); Neutrophils # 10.5 K/mm3 (1.8-7.8); Neutrophils % 70.8 % (37.0-80.0); Platelet Count 289 K/mm3 (142-424); Red Blood Count 3.91 M/mm3 (4.60-6.20); Red Cell Distribution Width 13.4 % (11.5-17.5); White Blood Count 14.9 K/mm3 (4.8-10.8)
[2017-12-26 07:35] LABS: Anion Gap 10.8 mEq/L (5-15); Calcium 8.1 mg/dL (8.5-10.1)
[2017-12-26 07:37] LABS: Potassium 2.8 mmoL/L (3.5-5.1)
--- NOTE | 2017-12-26 16:22 | Progress Note ---
Subjective Date: 12/26/17 Time: 11:30 Principal diagnosis: Status post cephalo-medullary nailing, left femur Interval history: Patient is status post cephalo-medullary nailing LEFT femur post op day #2. Patient is lying down in the bed. Says he is doing well and reports no problems. Patient has minimal pain and says it's well-controlled with medication. No history of any nausea or vomiting. Patient says he is eating and drinking well. No history of any distal tingling or numbness. PN: Obj Ex Vital signs: Temp Pulse Resp BP Pulse Ox 98.3 F 101 H 20 119/63 93 L 12/26/17 07:34 12/26/17 07:34 12/26/17 07:34 12/26/17 07:34 12/26/17 07:34 Narrative: Intake & Output 12/24/17 12/25/17 12/26/17 12/27/17 11:59 11:59 11:59 11:59 Intake Total 0 / 0 1880 / 1880 1540 / 1540 Output Total 600 / 600 1700 / 1700 1350 / 1350 Balance -600 / -600 180 / 180 190 / 190 Weight 205 lb 6.016 oz Laboratory Results - last 24 hr 12/26/17 07:20: WBC 14.9 H, RBC 3.91 L, Hgb 11.2 L, Hct 35.3 L, MCV 90.1, MCH 28.6, MCHC 31.7 L, RDW 13.4, Plt Count 289, MPV 9.2, Neut % (Auto) 70.8, Lymph % (Auto) 17.5, [place] % (Auto) 7.5, Eos % (Auto) 3.7, Baso % (Auto) 0.5, Neut # ( Auto) 10.5 H, Lymph # (Auto) 2.6, [place] # (Auto) 1.1 H, Eos # (Auto) 0.6 H, Baso # (Auto) 0.1 12/26/17 07:20: Sodium 135 L, Potassium 2.8 L*, Chloride 99, Carbon Dioxide 28, Anion Gap 10.8, BUN 17, Creatinine 1.43 H, Estimated Creat Clear 63, Estimated GFR 49 L, Est GFR ( Amer) 59, Glucose 125 H, Calcium 8.1 L Exam General appearance: alert, active, awake, no acute distress Cardiovascular: regular rate & rhythm, normal peripheral pulses, Respiratory: clear to auscultation, normal breath sounds ABD: normal exam; soft and non tender Neuro: alert, no deficit, oriented x 3 Psych: normal mood and affect On examination of the lower extremities the limb lengths are equal. Thigh and calf are soft and nontender. On examination of the LEFT hip/thigh the dressings are clean, dry and intact. The dressings were changed by me. There is a minimal of soakage of the dressings. The incisions look clean and healthy. No evidence of any infection or other complications noted. Distal pulses are 2+. Distal sensation is intact to light touch throughout. No motor deficits noted distally. - Urinary Catheter Management Tinsley Cath placed during this visit: yes Urethral indwelling: No Insertion date: 12/23/17 Insertion time: 14:30 Progress Note: A&P (1) COPD with emphysema Status: Acute (2) Hypertension, essential Status: Acute (3) Hypokalemia Status: Acute (4) Fracture, hip Status: Acute Assessment and Plan for All Diagnoses:: Post op patient plan I reviewed the findings and progress with the patient and his son who was with him in the room. Patient is doing well and reports no problems. His mobility is somewhat limited as he gets breathless very easily from his COPD. I recommend continuation of mobilization weightbearing as tolerated on the LEFT side with the walker. Continue DVT prophylaxis for 5 weeks (Appropriate agents include [id number] aspirin, subcu Lovenox, warfarin, Xarelto, Eliquis and similar). He is being discharged to a [place] [facility] facility today and I would like to see him back for follow-up in my office in 2 weeks time. Medical management as per Dr. Fernandes.
== END 2017-12-26 14:45 ==
LOC: ER 12:42 → 2ND 14:39
PROVIDERS: ADMIT Internal Medicine Adolescent Medicine; ATTEND Internal Medicine Adolescent Medicine

== ENCOUNTER → 2018-01-09 10:01 | Outpatient (CLI) | payer MEDICARE, MEDICAID, OTHER, SELFPAY ==
--- NOTE | 2018-01-09 10:06 | XR_ITS ---
XR hip LT 2-3V w/pelvis HISTORY: Follow-up surgery/hip fracture ITS.REASON: gamma nail LEFT femur dos 12/23/17 ORDERING PHYSICIAN: Shabbir Jaurez MD PATIENT AGE: 72 years COMPARISON: 12/24/2017 FINDINGS: Gamma nail is present within the left hip extending from the subcapital region to the base of the greater trochanter stabilized by a long intramedullary eloy. There is mild separation of the seventh trochanteric fracture fragments x 9 mm with mild medial angulation of the distal fracture fragment. The lesser trochanter displaced medially x 2 cm. Long intramedullary eloy stable.. No orthopedic complications of the eloy. IMPRESSION: Overall no significant change status post ORIF left subtrochanteric hip fracture with displaced lesser trochanter. No change mild distraction of the fracture fragments
== END ==
PROVIDERS: PCP Internal Medicine Adolescent Medicine; Visit Provider Orthopaedic Surgery
DX: Z48.89 Encounter for other specified surgical aftercare (principal)
CPT/HCPCS: 73502; 73552

== ENCOUNTER → 2018-01-30 09:26 | Outpatient (CLI) | payer MEDICARE, MEDICAID, OTHER, SELFPAY ==
--- NOTE | 2018-01-30 09:32 | XR_ITS ---
XR hip LT 2-3V w/pelvis Ordering Physician: Shabbir Juarez MD Patient Age: 72 years: Male HISTORY: ITS.REASON: LEFT femur nailing sx 12/23/17 Follow-up left hip surgery TECHNIQUE: AP and crosstable lateral view left hip. COMPARISON :January 09 left hip radiograph FINDINGS ORIF/ trochanteric/subtrochanteric fracture with femoral nailing .. Long intramedullary eloy is been placed entering superiorly Gamma nail is in place passing through the measuring right to the left femoral head providing fixation to the proximal head and neck. The lesser trochanter fragment resides medially as a separate fragment. Nondisplaced but appears stable position with early healing. There is distraction at the subtrochanteric portion of the fracture but it also appears stable with suggestion of early healing. IMPRESSION: ORIF trochanteric/subtrochanteric fracture as above . Stable position. Stable Mild distraction of fracture fragments but with now early healing evident
--- NOTE | 2018-01-30 09:32 | XR_ITS ---
XR femur LT 2V Ordering Physician: Shabbir Juarez MD Patient Age: 72 years: Male HISTORY: ITS.REASON: LEFT femur nailing sx 12/23/17 TECHNIQUE: AP and lateral view left femur COMPARISON :January 09, 2018 FINDINGS The longest medullary eloy is seen passing to the distal femur were secured by 2 transverse screws at the distal femoral shaft/metaphysis region. This distal measuring eloy appears stable good position centrally within the femur. No fracture or loosening. These images include up to the proximal femoral shaft. An compliment the left hip images discussed previous. IMPRESSION: . Stable intramedullary eloy is seen at the mid and distal left femoral shaft on these images.
== END ==
PROVIDERS: Visit Provider Orthopaedic Surgery
DX: Z09 Encounter for follow-up examination after completed treatment for conditions other than malignant neoplasm (principal)
CPT/HCPCS: 73502; 73552

== ENCOUNTER → 2018-03-13 09:36 | Outpatient (CLI) | payer MEDICARE, MEDICAID, OTHER, SELFPAY ==
--- NOTE | 2018-03-13 09:40 | XR_ITS ---
XR hip LT 2-3V w/pelvis HISTORY: Follow-up fracture ITS.REASON: sp gamma nailing LT femur sx 12/24/17 ORDERING PHYSICIAN: Shabbir Juarez MD PATIENT AGE: 72 years COMPARISON: None FINDINGS: There is a gamma nail a long intramedullary eloy is once again noted stabilizing the fracture of the proximal left femur in the subtrochanteric region with avulsion of the lesser trochanter medially. Callus formation is noted medially at the fracture site. There remains good alignment. There is mild varus angulation of the distal fragment. IMPRESSION: Status post ORIF proximal femoral fracture as described above with some increase in callus formation with good alignment
--- NOTE | 2018-03-13 09:40 | XR_ITS ---
XR femur LT 2V CLINICAL INDICATION: Follow-up surgery ITS.REASON: sp gamma nailing LEFT femur sx 12/24/17 ORDERING PHYSICIAN: Shabbir Juarez MD PATIENT AGE: 72 years Comparison: 01/30/2018 FINDINGS: There is a gamma nail a long intramedullary eloy is once again noted stabilizing the fracture of the proximal left femur in the subtrochanteric region with avulsion of the lesser trochanter medially. Callus formation is noted medially at the fracture site. There remains good alignment. The mid and distal aspect of the femur are unremarkable. There is mild varus angulation of the distal fragment. IMPRESSION: Status post ORIF proximal femoral fracture as described above with some increase in callus formation with good alignment
== END ==
PROVIDERS: Visit Provider Orthopaedic Surgery
DX: Z09 Encounter for follow-up examination after completed treatment for conditions other than malignant neoplasm (principal)
CPT/HCPCS: 73502; 73552

== ENCOUNTER → 2018-06-12 12:57 | Outpatient (CLI) | payer MEDICARE, MEDICAID, OTHER, SELFPAY ==
--- NOTE | 2018-06-12 13:02 | XR_ITS ---
XR femur LT 2V CLINICAL INDICATION: Follow-up fracture/ORIF ITS.REASON: LT gamma nail dos 12/23/17 ORDERING PHYSICIAN: Shabbir Juarez MD PATIENT AGE: 73 years Comparison: None FINDINGS: There is a gamma nail a long intramedullary eloy is once again noted stabilizing the fracture of the proximal left femur in the subtrochanteric region with avulsion of the lesser trochanter medially. Increasing callus formation is noted medially at the fracture site. There remains good alignment. There is mild varus angulation of the distal fragment. The lesser trochanter fragment is displaced medially x 18 mm unchanged. The mid and distal aspect of the femur have an unremarkable appearance with no evidence for complication IMPRESSION: Status post ORIF proximal femoral fracture as described above with some increase in callus formation with good alignment
--- NOTE | 2018-06-12 13:02 | XR_ITS ---
XR hip LT 2-3V w/pelvis HISTORY: Follow-up fracture/ORIF ITS.REASON: LT gamma nail dos 12/23/17 ORDERING PHYSICIAN: Shabbir Juarez MD PATIENT AGE: 73 years COMPARISON: 03/13/2018 FINDINGS: There is a gamma nail a long intramedullary eloy is once again noted stabilizing the fracture of the proximal left femur in the subtrochanteric region with avulsion of the lesser trochanter medially. Increasing callus formation is noted medially at the fracture site. There remains good alignment. There is mild varus angulation of the distal fragment. The lesser trochanter fragment is displaced medially x 18 mm unchanged IMPRESSION: Status post ORIF proximal femoral fracture as described above with some increase in callus formation with good alignment
== END ==
PROVIDERS: PCP Family Medicine; Visit Provider Orthopaedic Surgery
DX: Z09 Encounter for follow-up examination after completed treatment for conditions other than malignant neoplasm (principal)
CPT/HCPCS: 73502; 73552

== ENCOUNTER → 2018-12-23 13:02 | Outpatient (CLI) | payer MEDICARE, MEDICAID, OTHER, SELFPAY ==
--- NOTE | 2018-12-23 13:08 | XR_ITS ---
XR femur LT 2V HISTORY: ITS.REASON: 1 year follow up left gamma nail ORDERING PHYSICIAN: Shabbir Juarez MD PATIENT AGE: 73 years COMPARISON: 06/12/2018 FINDINGS: Gamma nail present with long intramedullary eloy stabilizing the previous an old proximal femur fracture. Fracture line is no longer visible. Lesser trochanter fragment remains displaced medially unchanged. The distal aspect of the femoral right has an unremarkable appearance. IMPRESSION: Good alignment status healed proximal femur fracture status post ORIF
--- NOTE | 2018-12-23 13:08 | XR_ITS ---
XR hip LT 2-3V w/pelvis HISTORY: ITS.REASON: 1 year follow up left gamma nail ORDERING PHYSICIAN: Shabbir Juarez MD PATIENT AGE: 73 years COMPARISON: 06/12/2018 FINDINGS: Gamma nail present with long intramedullary eloy stabilizing the previous an old proximal femur fracture. Fracture line is no longer visible. Lesser trochanter fragment remains displaced medially unchanged. The distal aspect of the femoral right has an unremarkable appearance. IMPRESSION: Good alignment status healed proximal femur fracture status post ORIF
== END ==
PROVIDERS: PCP Internal Medicine Adolescent Medicine; Visit Provider Orthopaedic Surgery
DX: Z09 Encounter for follow-up examination after completed treatment for conditions other than malignant neoplasm (principal)
CPT/HCPCS: 73502; 73552

== ENCOUNTER → 2018-12-24 15:02 | Outpatient (CLI) | payer MEDICARE, MEDICAID, OTHER, SELFPAY ==
[2018-12-24 15:25] LABS: Basophils # 0.2 K/mm3 (0-0.2); Basophils % 1.2 % (0.1-2.0); Eosinophils # 0.6 K/mm3 (0.0-0.4); Hematocrit 47.9 % (42.0-52.0); Lymphocytes # 2.3 K/mm3 (0.7-4.5); Lymphocytes % 17.6 % (10-50); Mean Corpuscular HGB Conc 31.4 g/dL (31.8-35.4); Mean Corpuscular Hemoglobin 27.5 pg (27.0-31.2); Mean Corpuscular Volume 87.7 fl (80-94); Mean Platelet Volume 7.5 fl (7.4-10.4); Monocytes % 7.9 % (1.7-9.3); Neutrophils # 8.7 K/mm3 (1.8-7.8); Neutrophils % 68.1 % (37.0-80.0); Platelet Count 378 K/mm3 (142-424); Red Blood Count 5.47 M/mm3 (4.60-6.20); Red Cell Distribution Width 13.1 % (11.5-17.5); White Blood Count 12.7 K/mm3 (4.8-10.8)
[2018-12-24 16:29] LABS: Alanine Aminotransferase 40 U/L (12-78); Albumin Level 3.5 gm/dL (3.4-5.0); Albumin/Globulin Ratio 0.9 (1.1-1.8); Alkaline Phosphatase 80 U/L (46-116); Anion Gap 16.2 mEq/L (5-15); Aspartate Amino Transferase 21 U/L (15-37); Bilirubin,Total 0.5 mg/dL (0.2-1.0); Blood Urea Nitrogen 20 mg/dL (7-18); Carbon Dioxide 26 mmol/L (21.0-32.0); Chloride 102 mmol/L (98-107); Chol/HDL Ratio 3.3 (1-3.5); Cholesterol 130 mg/dL (140-200); Creatinine,Serum 1.64 mg/dL (0.70-1.30); Estimated Glomerular Filt Rate 42 ml/min (>60); GFR (African American) 50 ML/MIN (>60); Globulin 3.9 gm/dl (1.3-3.2); Glucose 91 mg/dL (74-106); HDL Cholesterol 40 mg/dL (27-67); LDL Cholesterol 58 mg/dL (0-130); Potassium 4.2 mmoL/L (3.5-5.1); Prostate Specific Ag Screen 2.6 ng/mL (0.0-4.0); Sodium 140 mmol/L (136-145); Total Protein,Serum 7.4 gm/dL (6.4-8.2); Triglycerides 160 mg/dL (30-200); VLDL Cholesterol 32 mg/dL (0-40)
== END ==
PROVIDERS: Visit Provider Internal Medicine Adolescent Medicine
DX: E78.5 Hyperlipidemia, unspecified (principal); R35.0 Frequency of micturition; Z12.5 Encounter for screening for malignant neoplasm of prostate; N40.1 Benign prostatic hyperplasia with lower urinary tract symptoms
CPT/HCPCS: 36415; 80053; 80061; 85025; G0103

== ENCOUNTER 2020-07-15 06:53 | Inpatient (IN) | payer MEDICARE, MEDICAID, OTHER, SELFPAY ==
[2020-07-15] VITALS (17 sets, daily range): BP systolic 105–160; BP diastolic 55–94; PULSE 76–121; RESP 15–32; TEMP 36.5–37.1; O2SAT 90–100; BMI 32.5; BMI 35.1
--- NOTE | 2020-07-15 07:04 | XR_ITS ---
PROCEDURE: XR CHEST PORTABLE CLINICAL HISTORY: sob Shortness of breath fever COMPARISON: No exams were available for comparison FINDINGS: The cardiomediastinal silhouette and pulmonary vascularity are within normal limits. Patchy consolidation present in the right upper lobe consistent with pneumonia. No effusion No acute bony abnormalities. IMPRESSION: Right upper lobe pneumonia Dictated by: Yomi Ayala MD 07/15/2020 09:08 Yomi Ayala MD in OV 07/15/2020 09:08
[2020-07-15 07:18] LABS: Basophils # 0.1 K/mm3 (0-0.2); Basophils % 0.4 % (0.1-2.0); Eosinophils # 0.1 K/mm3 (0.0-0.4); Eosinophils % 0.5 % (0.1-12.0); Hematocrit 48.3 % (42.0-52.0); Hemoglobin 15.7 g/dL (14.1-18.0); Lymphocytes # 1.6 K/mm3 (0.7-4.5); Lymphocytes % 6.1 % (10-50); Mean Corpuscular HGB Conc 32.6 g/dL (31.8-35.4); Mean Corpuscular Hemoglobin 29.8 pg (27.0-31.2); Mean Corpuscular Volume 91.6 fl (80-94); Mean Platelet Volume 9.2 fl (7.4-10.4); Monocytes # 1.6 K/mm3 (0.1-1.0); Monocytes % 6.3 % (1.7-9.3); Neutrophils % 86.6 % (37.0-80.0); Platelet Count 392 K/mm3 (142-424); Red Blood Count 5.28 M/mm3 (4.60-6.20); Red Cell Distribution Width 13.7 % (11.5-17.5); White Blood Count 25.4 K/mm3 (4.8-10.8)
[2020-07-15 07:20] LABS: MANUAL DIFFERENTIAL MANUAL DIFFERENTIAL (MANUAL DIFF)
[2020-07-15 07:23] LABS: Anion Gap 16.3 mEq/L (5-15); Blood Urea Nitrogen 28 mg/dl (9-20); Calcium 9.9 mg/dl (8.4-10.2); Carbon Dioxide 25 mmol/L (22.0-30.0); Chloride 95 mmol/L (98-107); Creatinine Clearance Estimated 40 mL/min (50-200); Estimated Glomerular Filt Rate 28 ml/min (>60); GFR (African American) 34 ML/MIN (>60); Glucose 194 mg/dl (74-100); Lymphocytes % 13 % (10-50); Monocytes % 7 % (2-9); Neutrophils % 78 % (42-76); Platelet Estimate Normal; Potassium 4.3 mmoL/L (3.5-5.1); RBC Morphology Normal; Sodium 132 mmol/L (136-145); Total Cells Counted 100
--- NOTE | 2020-07-15 07:45 | HMH.EDSOB ---
ED Disposition Clinical Impression: Severe sepsis, Acute exacerbation of chronic obstructive airways disease, FARIDA (acute kidney injury), Hypertension, essential Community acquired pneumonia Qualifiers: Laterality: right Lung location: upper lobe of lung Qualified Code(s): J18.9 - Pneumonia, unspecified organism Disposition: Admitted As Inpatient Condition on Discharge: [facility] - Critical Care Critical Care Time: No Attestation: On 07/15/20, the high probability of a clinically significant, sudden or life threatening deterioration of the following system(s) required my full and direct attention, intervention and personal management. The time I documented below is in addition to time spent performing reported procedures but includes the following listed in this critical care notation. Medical Decision Making - Medical Records Medical records reviewed: Yes: I reviewed the patient's medical records. - [place] Inquiry Pt receiving controlled substance: No Vital Signs: 07/15/20 06:51 07/15/20 07:10 07/15/20 07:25 Temperature 98.8 F Temperature Source Oral Pulse Rate [Right Brachial] 121 H 105 H Respiratory Rate 15 32 H Blood Pressure [Right Arm] 160/79 H 153/88 H Blood Pressure Mean [Right Arm] 106 109 Blood Pressure Source [Right Arm] Automatic Cuff Blood Pressure Position [Right Arm] Sitting Sitting 02 Sat by Pulse Oximetry 100 90 L 93 L Oxygen Delivery Method Room Air Room Air Nasal Cannula Oxygen Flow Rate (LPM) 2 07/15/20 08:11 07/15/20 09:22 07/15/20 09:59 Temperature Temperature Source Pulse Rate [Right Brachial] 98 H 105 H Respiratory Rate 32 H 20 20 Blood Pressure [Right Arm] 120/55 L 135/72 Blood Pressure Mean [Right Arm] 76 93 Blood Pressure Source [Right Arm] Automatic Cuff Automatic Cuff Blood Pressure Position [Right Arm] Sitting Sitting 02 Sat by Pulse Oximetry 94 L 92 L 94 L Oxygen Delivery Method Nasal Cannula Nasal Cannula Nasal Cannula Oxygen Flow Rate (LPM) 3 2 2 07/15/20 10:58 Temperature Temperature Source Pulse Rate [Right Brachial] 105 H Respiratory Rate 22 Blood Pressure [Right Arm] 121/64 Blood Pressure Mean [Right Arm] 83 Blood Pressure Source [Right Arm] Automatic Cuff Blood Pressure Position [Right Arm] Supine 02 Sat by Pulse Oximetry 95 Oxygen Delivery Method Nasal Cannula Oxygen Flow Rate (LPM) 2 - Lab Data Lab results reviewed: Yes: I reviewed the patient's lab results. Lab Results 07/15/20 07:00: WBC 25.4 H*, RBC 5.28, Hgb 15.7, Hct 48.3, MCV 91.6, MCH 29.8, MCHC 32.6, RDW 13.7, Plt Count 392, MPV 9.2, Neut % (Auto) 86.6 H, Lymph % (Auto) 6.1 L, [place] % (Auto) 6.3, Eos % (Auto) 0.5, Baso % (Auto) 0.4, Neut # (Auto) 22.0 H, Lymph # (Auto) 1.6, [place] # (Auto) 1.6 H, Eos # (Auto) 0.1, Baso # (Auto) 0.1, Total Counted 100, Neutrophils % (Manual) 78 H, Band Neutrophils % 2.0, Lymphocytes % (Manual) 13, Monocytes % (Manual) 7, Platelet Estimate Normal, RBC Morphology Normal 07/15/20 07:00: Sodium 132 L, Potassium 4.3, Chloride 95 L, Carbon Dioxide 25, Anion Gap 16.3 H, BUN 28 H, Creatinine 2.30 H, Estimated Creat Clear 40, Estimated GFR 28 L, Est GFR ( Amer) 34 L, Glucose 194 H, Calcium 9.9, Troponin I < 0.01 07/15/20 07:00: Procalcitonin 2.86 H 07/15/20 07:00: SARS-CoV-2 IgG Ab (Rapid) Negative, SARS-CoV-2 IgM Ab (Rapid) Negative 07/15/20 07:00: Total Bilirubin 1.4 H, Direct Bilirubin 0.7 H, Conjugated Bilirubin 0.0, Indirect Bilirubin 0.7, Unconjugated Bilirubin 0.7, AST 38, ALT 43, Alkaline Phosphatase 128 H, Total Protein 9.0 H, Albumin 4.2 07/15/20 07:05: Specimen Source L radial, O2 % 3lpm, ABG pH 7.49 H, ABG pCO2 28.1 L, ABG pO2 74.3 L, ABG HCO3 20.7 L, ABG Total CO2 21.6 L, ABG O2 Saturation 97, ABG Base Excess -2.7 L, Yomi Test Acceptable 07/15/20 07:40: Lactate 1.3 07/15/20 10:30: Hemoglobin A1c 5.6 Result diagrams: 07/15/20 07:00 07/15/20 07:00 Orders (Tests/Meds): ED MEDICATIONS Generic Name Dose Route Start Last Admin Trade [employer]
[2020-07-15 07:46] LABS: ABG Base Excess -2.7 mmol/L (-2.4-2.3); ABG HCO3 20.7 mmhg (22.0-26.0); ABG Oxygen Saturation 97 % (90-100); ABG PCO2 28.1 mmhg (35.0-45.0); ABG PH 7.49 mmol/L (7.35-7.45); ABG PO2 74.3 mmhg (80-100); ABG TCO2 21.6 mmhg (23-27)
[2020-07-15 07:46] LABS: Troponin I < 0.01 ng/ml (0.00-0.034)
[2020-07-15 07:51] LABS: Allen's Test ACCEPTABLE; Oxygen 3LPM %; Source L RADIAL
[2020-07-15 07:56] LABS: Alanine Aminotransferase 43 U/L (12-78); Albumin Level 4.2 g/dl (3.5-5.0); Alkaline Phosphatase 128 U/L (38-126); Aspartate Amino Transferase 38 U/L (17-59); Bilirubin,Direct 0.7 mg/dl (0.0-0.4); Bilirubin,Indirect 0.7 mg/dL (0.0-0.9); Bilirubin,Total 1.4 mg/dl (0.2-1.3); Bilirubin,Unconjugated 0.7 mg/dL (0.0-1.1)
--- NOTE | 2020-07-15 08:00 | PC.NURSE ---
PT RESTING FAMILY AT BEDSIDE PT C/O LOWER BACK PAIN
[2020-07-15 08:02] LABS: Lactic Acid 1.3 mmol/L (0.7-2.1)
[2020-07-15 08:06] LABS: Coronavirus 19 IgG Antibody Negative (Negative); Coronavirus 19 IgM Antibody Negative (Negative)
[2020-07-15 08:14] LABS: Procalcitonin 2.86 ng/mL (0.0-2.0)
--- NOTE | 2020-07-15 09:00 | PC.NURSE ---
PT RESTING PT AND FAMILY UPDATED ON PLAN OF CARE
--- NOTE | 2020-07-15 09:58 | ECG_ITS ---
APPROVED REPORT Exam: Resting ECG HR:115 bpm ECG Measurements Heart Rate 115 AXES LA 130 P 61 QRSd 80 QRS 74 QT 304 T 58 QTc 420 Conclusion Sinus tachycardia Otherwise normal ECG Electronically signed by : Ben Fernandes, 07/15/2020 15:19:54
--- NOTE | 2020-07-15 10:00 | PC.NURSE ---
PT AND FAMILY UPDATED ON PLAN OF CARE. PT UP TO WHEELCHAIR WITH ASSIST. PT BECAME SOB WITH MOVING FROM BED TO CHAIR.
--- NOTE | 2020-07-15 10:46 | PC.NURSE ---
[facility]
[2020-07-15 10:58] LABS: Hemoglobin A1C 5.6 % (4.0-6.0)
[2020-07-15 11:08] LABS: Troponin I < 0.01 ng/ml (0.00-0.034)
--- NOTE | 2020-07-15 11:45 | PC.NURSE ---
REPORT TO SUSAN COON
--- NOTE | 2020-07-15 13:18 | HMH.HP ---
*Admission Date: 07/15/20 *Chief complaint: SOA, cough *History of present illness: Mr. Terry is a 75-year-old gentleman who presented to the ER overnight due to worsening shortness of breath, cough, chills and fatigue. He states that he has been feeling bad since the middle of June but is gotten worse over the past few days with worsening shortness of breath, body aches, nausea. Denies any known Covid exposure. Has a history of smoking but has not smoked in a few years. Extensive history of COPD and hypertension using inhalers but no history of oxygen. On arrival he was found to have criteria for sepsis with tachycardia, tachypnea, hypoxia. Noted on work-up to have significant FARIDA, leukocytosis, and chest x-ray concerning for right upper lobe pneumonia. Covid PCR was performed and found to be negative. Medicine was consulted for admission for community-acquired pneumonia and respiratory failure. On assessing the patient after he arrived to the floor, he states he is feeling somewhat better with oxygen and breathing treatment but still quite fatigued and short of breath. Was eating a meal at the time of exam and sitting up at bedside. Denies nausea or vomiting, chest pain, confusion. [facility] History I have reviewed the patient's past medical history: Yes Medical History: Reports:: Chronic Obstructive Pulmonary Disease (COPD), Hypertension, Renal Insufficiency Denies:: Atherosclerotic Heart Disease, Cancer, Diabetes Mellitus Type 1, Diabetes Mellitus Type 2, Internal Pacemaker, MRSA, Seizures *Have you ever received a pneumonia vaccine?: No *Have you received a flu vaccine this season?: No Other Medical History: Denies: Blood Transfusion Reaction Laterality Cases: Left: Other (LT gamma nail 12/23) Other Surgeries: Yes: Colonoscopy, Other. No: Pacemaker Amputation: No Fractures: No - *Social History Smoking Status: Former smoker Tobacco Type: cigarettes # Packs/Day (cigarettes): 1 Alcohol Intake: never Alcohol Intake Frequency:: other Substance Use Type: denies use *Occupational Status:: retired Housing: house Household Members: children *Travel in the last 8 weeks: None Family Hx:: No significant family history, Non-contributory Review of Systems - Review of Systems Review of systems:: pertinent systems reviewed and negative unless documented below (14 point review of systems performed, pertinent positives and negatives as per HPI) - *Neurologic Denies headache(s), Denies seizure-like activity Meds Home Medications Medication Instructions Recorded Confirmed Type Amlodipine Besylate [Amlodipine 10 mg PO DAILY 12/23/17 07/15/20 History 10mg Tab] Aspirin [Aspir 81] 81 mg PO DAILY 12/23/17 07/15/20 History Cetirizine HCl 10 mg PO DAILY 12/23/17 07/15/20 History Cholecalciferol (Vitamin D3) 1,000 unit PO DAILY 12/23/17 07/15/20 History [Vitamin D3 1,000 Unit Cap] Tiotropium [place] [Spiriva 2 puffs IH DAILY 12/24/17 07/15/20 History Respimat] Hydrocod/Acet 5/325 mg [[place] 1 - 2 tab PO Q6HP PRN #30 tab 12/26/17 07/15/20 Rx 5/325mg tablet] Pantoprazole Sodium [Protonix 40mg 40 mg PO BID 60 Days tablet. 12/26/17 07/15/20 Rx tablet] Potassium Chloride [K-Tab ER 10 20 meq PO BID #60 tablet.er 12/26/17 07/15/20 Rx mEq] Ipratropium/Albuterol Sulfate 3 ml IH TID 07/15/20 07/15/20 History [Duoneb 3mL neb] hydroCHLOROthiazide [HCTZ 25mg 25 mg PO DAILY 07/15/20 07/15/20 History tab] lisinopriL [Lisinopril 10mg Tab] 5 mg PO DAILY 07/15/20 07/15/20 History Allergies Allergy/AdvReac Type Severity Reaction Status Date / Time No Known Allergies Allergy Verified 12/23/18 13:41 Exam Vital signs and Labs for Last 24 Hours: Temp Pulse Resp BP Pulse Ox 98.8 F 107 H 32 H 121/64 95 07/15/20 12:00 07/15/20 12:00 07/15/20 12:00 07/15/20 12:00 07/15/20 10:58 Laboratory Results - last 24 hr 07/15/20 07:00: WBC 25.4 H*, RBC 5.28, Hgb 15.7, Hct 48.3, MCV 91.
[2020-07-15 14:05] LABS: Troponin I < 0.01 ng/ml (0.00-0.034)
--- NOTE | 2020-07-15 14:38 | P.CONPHA_ITS ---
[facility] Pharm[facility] VTE Monitoring - Patient Demographics Admission date: 07/15/20 Report Date: 07/15/20 Time: 14:38 Allergies/Adverse Reactions: Patient Allergies No Known Allergies Allergy (Verified 12/23/18 13:41) Height: 1.75 m Weight: 107.955 kg Patient Problems: Current Active Problems Hypertension, essential (Acute) Community acquired pneumonia (Acute) Severe sepsis (Acute) Acute exacerbation of chronic obstructive airways disease (Acute) FARIDA (acute kidney injury) (Acute) - VTE Risk Labs: VTE Related Lab Results Hgb 15.7 g/dL (14.1-18.0) 07/15/20 07:00 Hct 48.3 % (42.0-52.0) 07/15/20 07:00 Plt Count 392 K/mm3 (142-424) 07/15/20 07:00 BUN 28 mg/dl (9-20) H 07/15/20 07:00 Creatinine 2.30 mg/dl (0.66-1.25) H 07/15/20 07:00 Estimated Creat Clear 40 mL/min (50-200) 07/15/20 07:00 - Prophylaxis VTE Prophylaxis Ordered?: Yes Types of VTE Prophylaxis: TEDS Knee High Location of Applied Device: Bilateral Lower Extremeties
--- NOTE | 2020-07-15 15:08 | PC.NURSE ---
1130 Bedside report received from Floyd Diego RN in the ER. 1140 Pt transported to room 207 by RN via wheelchair, mask worn for transport per COVID 19 policy. Pt oriented to room, call light placed within reach. Education provided to pt on rounding, safety procedures, medications ordered. Bed locked and in lowest position with side rails up x2, pt denies any needs.
[2020-07-16] VITALS (7 sets, daily range): BP systolic 107–142; BP diastolic 51–75; PULSE 91–103; RESP 18–22; TEMP 36.6–37.1; O2SAT 93–98; BMI 35.5
--- NOTE | 2020-07-16 03:41 | PC.NURSE ---
No acute changes. Pt is A&O x4. Has slept at intervals this shift. No complaints stated. Pt remains on O2 2L NC. Lungs are diminished. Pt has been tachcardic at times this shift. Medications administered per sep. Pt has used urinal. No other concerns at tis time. Will continue to monitor.
[2020-07-16 07:38] LABS: Basophils # 0.1 K/mm3 (0-0.2); Basophils % 0.2 % (0.1-2.0); Eosinophils # 0.2 K/mm3 (0.0-0.4); Eosinophils % 0.6 % (0.1-12.0); Hematocrit 44.4 % (42.0-52.0); Hemoglobin 14.2 g/dL (14.1-18.0); Lymphocytes # 1.1 K/mm3 (0.7-4.5); Lymphocytes % 3.8 % (10-50); Mean Corpuscular Hemoglobin 30.1 pg (27.0-31.2); Mean Corpuscular Volume 94.1 fl (80-94); Mean Platelet Volume 8.6 fl (7.4-10.4); Monocytes # 0.8 K/mm3 (0.1-1.0); Monocytes % 2.8 % (1.7-9.3); Neutrophils # 26.4 K/mm3 (1.8-7.8); Neutrophils % 92.5 % (37.0-80.0); Platelet Count 378 K/mm3 (142-424); Red Blood Count 4.72 M/mm3 (4.60-6.20); Red Cell Distribution Width 13.8 % (11.5-17.5); White Blood Count 28.5 K/mm3 (4.8-10.8)
[2020-07-16 07:43] LABS: Blood Urea Nitrogen 40 mg/dl (9-20); Carbon Dioxide 24 mmol/L (22.0-30.0); Chloride 100 mmol/L (98-107); Creatinine Clearance Estimated 53 mL/min (50-200); Estimated Glomerular Filt Rate 35 ml/min (>60); GFR (African American) 42 ML/MIN (>60); Glucose 163 mg/dl (74-100); Sodium 134 mmol/L (136-145)
--- NOTE | 2020-07-16 07:49 | HMH.ACPN2 ---
Internal Medicine - PN: Subj *Date: 07/16/20 *Time: 07:49 Interval history: Patient felt fairly well overnight, continues to cough up lots of yellow sputum. Has eaten breakfast well this morning Exam Vital signs and Labs for Last 24 Hours: Temp Pulse Resp BP Pulse Ox 97.9 F 95 H 19 114/55 L 98 07/16/20 04:00 07/16/20 05:55 07/16/20 04:00 07/16/20 04:00 07/16/20 05:55 Laboratory Results - last 24 hr 07/15/20 07:00: Procalcitonin 2.86 H 07/15/20 07:00: SARS-CoV-2 IgG Ab (Rapid) Negative, SARS-CoV-2 IgM Ab (Rapid) Negative 07/15/20 07:00: Total Bilirubin 1.4 H, Direct Bilirubin 0.7 H, Conjugated Bilirubin 0.0, Indirect Bilirubin 0.7, Unconjugated Bilirubin 0.7, AST 38, ALT 43, Alkaline Phosphatase 128 H, Total Protein 9.0 H, Albumin 4.2 07/15/20 07:05: Specimen Source L radial, O2 % 3lpm, ABG pH 7.49 H, ABG pCO2 28.1 L, ABG pO2 74.3 L, ABG HCO3 20.7 L, ABG Total CO2 21.6 L, ABG O2 Saturation 97, ABG Base Excess -2.7 L, Yomi Test Acceptable 07/15/20 07:40: Lactate 1.3 07/15/20 10:30: Troponin I < 0.01 07/15/20 10:30: Hemoglobin A1c 5.6 07/15/20 13:30: Troponin I < 0.01 I & O for Last 24 hours: Intake & Output 07/13/20 07/14/20 07/15/20 07/16/20 11:59 11:59 11:59 11:59 Intake Total 720 / 720 Output Total Balance 719 / 719 Weight 238 lb 240 lb Microbiology Reports for the Last 24 Hours: Microbiology 07/15/20 10:20 Sputum - Expectorated Sputum Gram Stain - Final 07/15/20 10:20 Sputum - Expectorated Sputum Sputum Culture - Preliminary 07/15/20 07:00 Nasopharyngeal Coronavirus COVID-19 PCR - Final - Constitutional no acute distress - *Routine HEENT Exam Head: Present: normocephalic Eye: Present: EOMI, PERRL ENT: Present: mucous membranes moist - *Routine Neck Exam Present: supple. Absent: lymphadenopathy - *Routine Respiratory Exam Present: rhonchi (In the right middle and upper lung field. Wearing oxygen, breathing comfortably) - *Routine Cardiovascular Exam Present: RRR - *Routine Abdominal Exam Present: soft, normoactive bowel sounds. Absent: tenderness - *Routine Extremities Exam Absent: cyanosis, clubbing, edema - *Routine Skin Exam Present: warm. Absent: rash - *Routine Neurological Exam Present: alert, oriented X3 Assessment and Plan (1) Severe sepsis Status: Acute Category: Medical Code(s): A41.9 - Sepsis, unspecified organism; R65.20 - Severe sepsis without septic shock (2) FARIDA (acute kidney injury) Status: Acute Category: Medical Code(s): N17.9 - Acute kidney failure, unspecified (3) Community acquired pneumonia Status: Acute Qualifiers: Laterality: right Lung location: upper lobe of lung Qualified Code(s): J18.9 - Pneumonia, unspecified organism Category: Medical Code(s): J18.9 - Pneumonia, unspecified organism (4) Hypertension, essential Status: Chronic Category: Medical Code(s): I10 - Essential (primary) hypertension (5) COPD with emphysema Status: Chronic Category: Medical Code(s): J43.9 - Emphysema, unspecified (6) Chronic kidney disease Status: Chronic Qualifiers: Chronic kidney disease stage: stage 3 (moderate) Category: Medical Code(s): N18.9 - Chronic kidney disease, unspecified - Assessment and plan all Dx Assessment and Plan for all problems:: Severe sepsis improving. Continue broad-spectrum antibiotics for community-acquired lobar pneumonia as we await culture results. Check procalcitonin levels tomorrow to monitor his response to therapy.
[2020-07-16 07:53] LABS: MANUAL DIFFERENTIAL MANUAL DIFFERENTIAL (MANUAL DIFF)
[2020-07-16 08:11] LABS: Calcium 8.7 mg/dl (8.4-10.2)
[2020-07-16 08:20] LABS: Lymphocytes % 7 % (10-50); Monocytes % 4 % (2-9); Neutrophils % 89 % (42-76); Platelet Estimate Normal; RBC Morphology Normal; Total Cells Counted 100
--- NOTE | 2020-07-16 13:27 | HMH.PHACONS ---
- Pharmacy Consult Date: 07/16/20 Time: 13:27 Referring provider: DR. KOEHLER Reason for Consult:: VANCOMYCIN DOSING Allergies and ADEs:: Allergies Allergy/AdvReac Type Severity Reaction Status Date / Time No Known Allergies Allergy Verified 12/23/18 13:41 Home Medications:: Home Medications Medication Instructions Recorded Confirmed Type Amlodipine Besylate [Amlodipine 10 mg PO DAILY 12/23/17 07/15/20 History 10mg Tab] Aspirin [Aspir 81] 81 mg PO DAILY 12/23/17 07/15/20 History Cetirizine HCl 10 mg PO DAILY 12/23/17 07/15/20 History Cholecalciferol (Vitamin D3) 1,000 unit PO DAILY 12/23/17 07/15/20 History [Vitamin D3 1,000 Unit Cap] Tiotropium [place] [Spiriva 2 puffs IH DAILY 12/24/17 07/15/20 History Respimat] Hydrocod/Acet 5/325 mg [[place] 1 - 2 tab PO Q6HP PRN #30 tab 12/26/17 07/15/20 Rx 5/325mg tablet] Pantoprazole Sodium [Protonix 40mg 40 mg PO BID 60 Days tablet. 12/26/17 07/15/20 Rx tablet] Potassium Chloride [K-Tab ER 10 20 meq PO BID #60 tablet.er 12/26/17 07/15/20 Rx mEq] Ipratropium/Albuterol Sulfate 3 ml IH TID 07/15/20 07/15/20 History [Duoneb 3mL neb] hydroCHLOROthiazide [HCTZ 25mg 25 mg PO DAILY 07/15/20 07/15/20 History tab] lisinopriL [Lisinopril 10mg Tab] 5 mg PO DAILY 07/15/20 07/15/20 History Height: 1.75 m Weight: 108.862 kg Laboratory Results:: Laboratory Results - last 24 hr 07/15/20 13:30: Troponin I < 0.01 07/16/20 07:00: WBC 28.5 H*, RBC 4.72, Hgb 14.2, Hct 44.4, MCV 94.1 H, MCH 30.1, MCHC 32.0, RDW 13.8, Plt Count 378, MPV 8.6, Neut % (Auto) 92.5 H, Lymph % (Auto) 3.8 L, [place] % (Auto) 2.8, Eos % (Auto) 0.6, Baso % (Auto) 0.2, Neut # (Auto) 26.4 H, Lymph # (Auto) 1.1, [place] # (Auto) 0.8, Eos # (Auto) 0.2, Baso # (Auto) 0.1, Total Counted 100, Neutrophils % (Manual) 89 H, Lymphocytes % (Manual) 7 L, Monocytes % (Manual) 4, Platelet Estimate Normal, RBC Morphology Normal 07/16/20 07:00: Sodium 134 L, Potassium 4.0, Chloride 100, Carbon Dioxide 24, Anion Gap 14.0, BUN 40 H D, Creatinine 1.90 H, Estimated Creat Clear 53, Estimated GFR 35 L, Est GFR ( Amer) 42 L D, Glucose 163 H, Calcium 8.7 D, Magnesium 2.0 Medical History: Reports:: Chronic Obstructive Pulmonary Disease (COPD), Hypertension, Renal Insufficiency Denies:: Atherosclerotic Heart Disease, Cancer, Diabetes Mellitus Type 1, Diabetes Mellitus Type 2, Internal Pacemaker, MRSA, Seizures Assessment and Plan (1) Severe sepsis Status: Acute Category: Medical Code(s): A41.9 - Sepsis, unspecified organism; R65.20 - Severe sepsis without septic shock (2) FARIDA (acute kidney injury) Status: Acute Category: Medical Code(s): N17.9 - Acute kidney failure, unspecified (3) Community acquired pneumonia Status: Acute Qualifiers: Laterality: right Lung location: upper lobe of lung Qualified Code(s): J18.9 - Pneumonia, unspecified organism Category: Medical Code(s): J18.9 - Pneumonia, unspecified organism (4) Hypertension, essential Status: Chronic Category: Medical Code(s): I10 - Essential (primary) hypertension (5) COPD with emphysema Status: Chronic Category: Medical Code(s): J43.9 - Emphysema, unspecified (6) Chronic kidney disease Status: Chronic Qualifiers: Chronic kidney disease stage: stage 3 (moderate) Category: Medical Code(s): N18.9 - Chronic kidney disease, unspecified - Assessment and plan all Dx Assessment and Plan for all problems:: Patient: Floor: Age: 75 yo Serum creatinine: 1.9 mg/dL Height: 68.9 Inches Weight (kg): 108.9 IBW (kg): 70.47 Dosing wt(kg): 108.9 Estimated Creatinine clearance (ml/min): 34.5 CRCL method: Cockcroft and Gault using ibw(default). Drug selected: Vancomycin Loading dose (mg): 0 Vd (liters): 87.1 (factor used: 0.8 L/kg) Og (hr-1): 0.033 Half life (hrs): 21.00 Recommended dose: 1750 mg Interval: 24 hrs Infusion
--- NOTE | 2020-07-16 14:54 | HMH.PHAVTE ---
[facility] Pharmacy VTE Monitoring - Patient Demographics Admission date: 07/16/20 Report Date: 07/16/20 Time: 14:54 Allergies/Adverse Reactions: Patient Allergies No Known Allergies Allergy (Verified 12/23/18 13:41) Height: 1.75 m Weight: 108.862 kg Patient Problems: Current Active Problems COPD with emphysema (Chronic) Hypertension, essential (Chronic) Community acquired pneumonia (Acute) Severe sepsis (Acute) Acute exacerbation of chronic obstructive airways disease (Acute) FARIDA (acute kidney injury) (Acute) Chronic kidney disease (Chronic) - VTE Risk Labs: VTE Related Lab Results Hgb 14.2 g/dL (14.1-18.0) 07/16/20 07:00 Hct 44.4 % (42.0-52.0) 07/16/20 07:00 Plt Count 378 K/mm3 (142-424) 07/16/20 07:00 BUN 40 mg/dl (9-20) H D 07/16/20 07:00 Creatinine 1.90 mg/dl (0.66-1.25) H 07/16/20 07:00 Estimated Creat Clear 53 mL/min (50-200) 07/16/20 07:00 Was VTE Risk Assessment Performed: Yes VTE Score: 5 VTE Risk Level: Low Risk - Prophylaxis Types of VTE Prophylaxis: TEDS Knee High (EMELY HOSE ORDERED) Location of Applied Device: Bilateral Lower Extremeties
--- NOTE | 2020-07-16 17:04 | PC.NURSE ---
Pt has been pleasant and cooperative this shift. A&O X4. No complaints of pain. Pt reports SOA with exertion, although O2 sats. have remained >90% with 2 LPM via NC. Lung sounds reveal expiratory rhonchi. Skin is C/D/I. No edema noted. Pt ambulates independently to/from the bathroom and throughout the room. Pt uses the urinal to void clear, yellow urine without issue. No BM this shift. 20 G peripheral IV in the LT hand is patent and infusing NS @ 100 ML/HR. VSS. Call light within reach. Will continue to monitor.
[2020-07-17] VITALS (11 sets, daily range): BP systolic 126–161; BP diastolic 56–79; PULSE 76–105; RESP 20–24; TEMP 36.4–36.7; O2SAT 92–96; BMI 35.8
--- NOTE | 2020-07-17 03:33 | PC.NURSE ---
Pt has slept in intervals this shift. BLT lungs with expiratory rhonchi. Bowel sounds present in all 4 quadrants. Pt goes to the bathroom with standby assistance, Pt IV infusing well in the Lt hand NS 100ml/hr. Knee-high TEDS in place. Pt denies pain, N/V or headache. Pt is on 2L NC for SOA with Pneumonia
[2020-07-17 07:33] LABS: Basophils # 0.1 K/mm3 (0-0.2); Basophils % 0.2 % (0.1-2.0); Eosinophils # 0.1 K/mm3 (0.0-0.4); Eosinophils % 0.3 % (0.1-12.0); Hematocrit 47.2 % (42.0-52.0); Hemoglobin 15.1 g/dL (14.1-18.0); Lymphocytes % 3.4 % (10-50); Mean Corpuscular Hemoglobin 30.1 pg (27.0-31.2); Mean Platelet Volume 8.1 fl (7.4-10.4); Monocytes % 3.3 % (1.7-9.3); Neutrophils # 27.1 K/mm3 (1.8-7.8); Neutrophils % 92.8 % (37.0-80.0); Platelet Count 470 K/mm3 (142-424); Red Blood Count 5.02 M/mm3 (4.60-6.20); Red Cell Distribution Width 13.9 % (11.5-17.5); White Blood Count 29.2 K/mm3 (4.8-10.8)
[2020-07-17 07:39] LABS: Chloride 102 mmol/L (98-107); Sodium 137 mmol/L (136-145)
[2020-07-17 07:40] LABS: MANUAL DIFFERENTIAL MANUAL DIFFERENTIAL (MANUAL DIFF)
[2020-07-17 07:42] LABS: Alanine Aminotransferase 121 U/L (12-78); Albumin Level 3.9 g/dl (3.5-5.0); Albumin/Globulin Ratio 0.8 (1.1-1.8); Alkaline Phosphatase 137 U/L (38-126); Aspartate Amino Transferase 95 U/L (17-59); Bilirubin,Total 0.7 mg/dl (0.2-1.3); Blood Urea Nitrogen 43 mg/dl (9-20); Carbon Dioxide 24 mmol/L (22.0-30.0); Creatinine Clearance Estimated 64 mL/min (50-200); Estimated Glomerular Filt Rate 43 ml/min (>60); GFR (African American) 52 ML/MIN (>60); Globulin 4.6 g/dL (1.3-3.2); Total Protein,Serum 8.5 g/dl (6.3-8.2)
[2020-07-17 07:43] LABS: Glucose 159 mg/dl (74-100)
[2020-07-17 08:01] LABS: Lymphocytes % 4 % (10-50); Monocytes % 3 % (2-9); Neutrophils % 90 % (42-76); Platelet Estimate Normal; RBC Morphology Normal; Total Cells Counted 100
--- NOTE | 2020-07-17 08:38 | HMH.ACPN2 ---
Internal Medicine - PN: Subj *Date: 07/17/20 *Time: 08:38 Interval history: Patient is felt well overnight, continues to cough up some sputum. Eating well. Exam Vital signs and Labs for Last 24 Hours: Temp Pulse Resp BP Pulse Ox 98.0 F 93 H 22 147/79 H 96 07/17/20 04:00 07/17/20 05:56 07/17/20 04:00 07/17/20 04:00 07/17/20 05:56 Laboratory Results - last 24 hr 07/17/20 07:03: WBC 29.2 H*, RBC 5.02, Hgb 15.1, Hct 47.2, MCV 94.0, MCH 30.1, MCHC 32.0, RDW 13.9, Plt Count 470 H, MPV 8.1, Neut % (Auto) 92.8 H, Lymph % (Auto) 3.4 L, [place] % (Auto) 3.3, Eos % (Auto) 0.3, Baso % (Auto) 0.2, Neut # (Auto) 27.1 H, Lymph # (Auto) 1.0, Leslie # (Auto) 1.0, Eos # (Auto) 0.1, Baso # (Auto) 0.1, Total Counted 100, Neutrophils % (Manual) 90 H, Band Neutrophils % 3.0, Lymphocytes % (Manual) 4 L, Monocytes % (Manual) 3, Platelet Estimate Normal, RBC Morphology Normal 07/17/20 07:03: Sodium 137, Potassium 4.0, Chloride 102, Carbon Dioxide 24, Anion Gap 15.0, BUN 43 H, Creatinine 1.60 H, Estimated Creat Clear 64, Estimated GFR 43 L, Est GFR ( Amer) 52 L D, Glucose 159 H, Calcium 9.0, Total Bilirubin 0.7, AST 95 H D, ALT 121 H D, Alkaline Phosphatase 137 H, Total Protein 8.5 H, Albumin 3.9, Globulin 4.6 H, Albumin/Globulin Ratio 0.8 L I & O for Last 24 hours: Intake & Output 07/14/20 07/15/20 07/16/20 07/17/20 11:59 11:59 11:59 11:59 Intake Total 1080 / 1080 2976 / 2976 Output Total Balance 1079 / 1079 2976 / 2976 Weight 238 lb 240 lb 242 lb Microbiology Reports for the Last 24 Hours: Microbiology 07/15/20 07:24 Blood Blood Culture - Preliminary NO GROWTH AFTER 48 HOURS 07/15/20 07:24 Blood Blood Culture - Preliminary Gram Positive Cocci 07/15/20 10:20 Sputum - Expectorated Sputum Gram Stain - Final 07/15/20 10:20 Sputum - Expectorated Sputum Sputum Culture - Preliminary Narrative: Alert, oriented x3, talkative. Lungs have excellent air movement, minimal rhonchi in the right upper lobe. Otherwise without wheezing or crackles. Heart rate regular. Abdomen soft, No edema or clubbing. Oropharynx clear. Assessment and Plan (1) Severe sepsis Status: Acute Category: Medical Code(s): A41.9 - Sepsis, unspecified organism; R65.20 - Severe sepsis without septic shock (2) FARIDA (acute kidney injury) Status: Acute Category: Medical Code(s): N17.9 - Acute kidney failure, unspecified (3) Community acquired pneumonia Status: Acute Qualifiers: Laterality: right Lung location: upper lobe of lung Qualified Code(s): J18.9 - Pneumonia, unspecified organism Category: Medical Code(s): J18.9 - Pneumonia, unspecified organism (4) Hypertension, essential Status: Chronic Category: Medical Code(s): I10 - Essential (primary) hypertension (5) COPD with emphysema Status: Chronic Category: Medical Code(s): J43.9 - Emphysema, unspecified (6) Chronic kidney disease Status: Chronic Qualifiers: Chronic kidney disease stage: stage 3 (moderate) Category: Medical Code(s): N18.9 - Chronic kidney disease, unspecified - Assessment and plan all Dx Assessment and Plan for all problems:: Overall improving nicely. Possible staph from sputum culture. Await final identification and sensitivities and plan for discharge once these are available.
[2020-07-17 08:40] LABS: Procalcitonin 1.04 ng/mL (0.0-2.0)
--- NOTE | 2020-07-17 17:55 | PC.NURSE ---
Patient sitting up in bed eating dinner. Patient has been alert and oriented x 5. Neurologically intact. Cardiac: patients heartrate has been intermittently elevated. Documented sepsis. Pulm: Patient is on 2l nc. Incentive spirometer given. Patient has worked it multiple times today. Lungs are clear. Respirations are elevated. GI: Patinet has had a good appetite. 1 loose bm today. No n/v. Not a diabetic. : Patient voids independently in toilet. Unsure of urine total. Will continue to monitor.
[2020-07-18 00:17] VITALS: PULSE 74; PULSE 76
--- NOTE | 2020-07-18 03:33 | PC.NURSE ---
Pt has rested in bed watching TV this shift. A&O x4, BLT lung sounds with expiratory wheezing, Bowel sounds present in all 4 quadrants. Pt is on 1 L NC, Pt has some SOA with exertion, Pt denies Headache, N/V or pain
[2020-07-18 04:00] VITALS: BP 127/65; PULSE 89; RESP 20; TEMP 36.9; O2SAT 90
[2020-07-18 04:54] VITALS: BMI 35.9
--- NOTE | 2020-07-18 05:11 | PC.NURSE ---
HUmidification added to Pt o@
[2020-07-18 06:24] VITALS: PULSE 89; PULSE 92; O2SAT 94
[2020-07-18 07:04] LABS: Basophils # 0.2 K/mm3 (0-0.2); Basophils % 0.6 % (0.1-2.0); Eosinophils # 0.2 K/mm3 (0.0-0.4); Eosinophils % 0.7 % (0.1-12.0); Hematocrit 44.1 % (42.0-52.0); Hemoglobin 14.4 g/dL (14.1-18.0); Lymphocytes # 1.8 K/mm3 (0.7-4.5); Lymphocytes % 6.1 % (10-50); Mean Corpuscular HGB Conc 32.7 g/dL (31.8-35.4); Mean Corpuscular Hemoglobin 30.7 pg (27.0-31.2); Mean Corpuscular Volume 93.8 fl (80-94); Monocytes # 1.7 K/mm3 (0.1-1.0); Monocytes % 5.8 % (1.7-9.3); Neutrophils # 25.6 K/mm3 (1.8-7.8); Neutrophils % 86.7 % (37.0-80.0); Platelet Count 509 K/mm3 (142-424); Red Cell Distribution Width 14.1 % (11.5-17.5); White Blood Count 29.6 K/mm3 (4.8-10.8)
[2020-07-18 07:41] LABS: MANUAL DIFFERENTIAL MANUAL DIFFERENTIAL (MANUAL DIFF)
[2020-07-18 08:00] VITALS: BP 153/75; PULSE 98; RESP 20; TEMP 36.7; O2SAT 91
--- NOTE | 2020-07-18 08:00 | PC.NURSE ---
Dr. Fernandes at to see pt. V/O received to given Lasix 20mg IV now and then d/c IV for discharge home. Also, d/c O2 and check room air pulse ox in 30min. Pt will be discharged home today with oral antibiotics. R/V.
[2020-07-18 08:01] LABS: Alanine Aminotransferase 156 U/L (12-78); Albumin Level 3.5 g/dl (3.5-5.0); Albumin/Globulin Ratio 0.9 (1.1-1.8); Alkaline Phosphatase 127 U/L (38-126); Anion Gap 13.1 mEq/L (5-15); Aspartate Amino Transferase 91 U/L (17-59); Bilirubin,Total 0.6 mg/dl (0.2-1.3); Blood Urea Nitrogen 44 mg/dl (9-20); Calcium 8.7 mg/dl (8.4-10.2); Carbon Dioxide 24 mmol/L (22.0-30.0); Chloride 105 mmol/L (98-107); Creatinine Clearance Estimated 64 mL/min (50-200); Estimated Glomerular Filt Rate 43 ml/min (>60); GFR (African American) 52 ML/MIN (>60); Globulin 4.1 g/dL (1.3-3.2); Glucose 102 mg/dl (74-100); Potassium 4.1 mmoL/L (3.5-5.1); Sodium 138 mmol/L (136-145); Total Protein,Serum 7.6 g/dl (6.3-8.2)
--- NOTE | 2020-07-18 08:37 | HMH.DCSUM ---
General - General Admission date:: 07/15/20 Discharge date: 07/18/20 HPI HPI: Mr. Terry is a 75-year-old gentleman who presented to the ER overnight due to worsening shortness of breath, cough, chills and fatigue. He states that he has been feeling bad since the middle of June but is gotten worse over the past few days with worsening shortness of breath, body aches, nausea. Denies any known Covid exposure. Has a history of smoking but has not smoked in a few years. Extensive history of COPD and hypertension using inhalers but no history of oxygen. On arrival he was found to have criteria for sepsis with tachycardia, tachypnea, hypoxia. Noted on work-up to have significant FARIDA, leukocytosis, and chest x-ray concerning for right upper lobe pneumonia. Covid PCR was performed and found to be negative. Medicine was consulted for admission for community-acquired pneumonia and respiratory failure. On assessing the patient after he arrived to the floor, he states he is feeling somewhat better with oxygen and breathing treatment but still quite fatigued and short of breath. Was eating a meal at the time of exam and sitting up at bedside. Denies nausea or vomiting, chest pain, confusion. Hospital Course Hospital Course: Patient was admitted, started on severe sepsis protocol, COVID-19 pneumonia ruled out by PCR swab and antibody testing. Sputum culture was nondiagnostic but 1 of patient's bottles is preliminarily growing staph species, non-MRSA. This seems like a likely pathogen given patient's up-to-date status with pneumonia vaccine and his chest x-ray pattern. Patient responded well to medications, improved, ate well, oxygenation improved This morning he reached maximal medical improvement in the hospital. He will be discharged home with short-term follow-up in the office. Antibiotics and low-dose steroids were prescribed. Pulmonary toilet was discussed. Patient did develop mild lower extremity edema from his constant sitting on the side of the bed and his fluid administration. We will administer 1 dose of IV Lasix before discharge and follow his fluid status in the outpatient setting. Objective Vital signs: Temp Pulse Resp BP Pulse Ox 98.5 F 92 H 20 127/65 94 L 07/18/20 04:00 07/18/20 06:24 07/18/20 04:00 07/18/20 04:00 07/18/20 06:24 no acute distress - *Routine HEENT Exam Head: Present: normocephalic Eye: Present: EOMI, PERRL ENT: Present: mucous membranes moist - *Routine Neck Exam Present: supple - *Routine Respiratory Exam Present: rhonchi (Normal rhonchi but much improved over baseline) - *Routine Cardiovascular Exam Present: RRR - *Routine Abdominal Exam Present: soft, normoactive bowel sounds. Absent: tenderness - *Routine Extremities Exam Present: edema (Trace ankle edema). Absent: cyanosis, clubbing - *Routine Skin Exam Present: warm. Absent: rash - Detailed Eye Exam Eyelids: Bilateral normal inspection Results Labs on day of discharge: Labs from last 24 hours 07/18/20 07/18/20 07/17/20 06:34 06:34 07:03 WBC 29.6 H* RBC 4.70 Hgb 14.4 Hct 44.1 MCV 93.8 MCH 30.7 MCHC 32.7 RDW 14.1 Plt Count 509 H MPV 8.0 Neut % (Auto) 86.7 H Lymph % (Auto) 6.1 L Bryan % (Auto) 5.8 Eos % (Auto) 0.7 Baso % (Auto) 0.6 Neut # (Auto) 25.6 H Lymph # (Auto) 1.8 Bryan # (Auto) 1.7 H Eos # (Auto) 0.2 Baso # (Auto) 0.2 Sodium 138 Potassium 4.1 Chloride 105 Carbon Dioxide 24 Anion Gap 13.1 BUN 44 H Creatinine 1.60 H Estimated Creat Clear 64 Estimated GFR 43 L Est GFR ( Amer) 52 L Glucose 102 H D Calcium 8.7 Total Bilirubin 0.6 AST 91 H ALT 156 H D Alkaline Phosphatase 127 H Total Protein 7.6 Albumin 3.5 D Globulin 4.1 H Albumin/Globulin Ratio 0.9 L Procalcitonin 1.04 Preliminary micro results at discharge 07/15/20 07:2
[2020-07-18 08:46] VITALS: O2SAT 94
[2020-07-18 09:44] LABS: Lymphocytes % 18 % (10-50); Monocytes % 4 % (2-9); Neutrophils % 78 % (42-76); Platelet Estimate Normal; RBC Morphology Normal; Total Cells Counted 100
--- NOTE | 2020-07-18 10:26 | PC.NURSE ---
IV out- catheter intact- 2x2 gauze and coban applied to site. Pt tolerated well.
--- NOTE | 2020-07-18 10:59 | PC.NURSE ---
Sitting on side of bed watching tv. No needs voiced at this time.
--- NOTE | 2020-07-18 11:19 | PC.NURSE ---
Pharmacy at to discuss discharge medications with pt.
--- NOTE | 2020-07-18 11:21 | HMH.PHAINT ---
DISCHARGE COUNSELING COMPLETED. ANTIBIOTICS AND PREDNISONE PRESCRIPTIONS SENT TO [facility]. ENCOURAGED TO TAKE LIST TO MD APPOINTMENTS. POOR HISTORIAN.
[2020-07-18 11:44] VITALS: PULSE 104; PULSE 108; O2SAT 91
== END 2020-07-18 12:30 | disposition home or self-care (01) | DRG 193 ==
LOC: ER 06:57 → 2ND 11:10
PROVIDERS: Admitting Provider Internal Medicine Adolescent Medicine; Emergency Provider Emergency Medicine; PCP Internal Medicine Adolescent Medicine; Visit Provider Internal Medicine Adolescent Medicine
DX: J18.9 Pneumonia, unspecified organism (principal); R65.20 Severe sepsis without septic shock; J96.01 Acute respiratory failure with hypoxia; N17.9 Acute kidney failure, unspecified; J44.9 Chronic obstructive pulmonary disease, unspecified; Z87.891 Personal history of nicotine dependence; I12.9 Hypertensive chronic kidney disease with stage 1 through stage 4 chronic kidney disease, or unspecified chronic kidney disease; N18.30 Chronic kidney disease, stage 3 unspecified; Z79.82 Long term (current) use of aspirin; Z79.52 Long term (current) use of systemic steroids; Z79.899 Other long term (current) drug therapy
CPT/HCPCS: 36415; 71045; 80048; 80053; 80076; 82803; 83036; 83605; 83735; 84145; 84484; 85007; 85025; 86328; 87040; 87070; 87077; 87186; 87205; 93005; 94640; 94761; 96365; 96367; 96375; 99285; J0456; J3370; U0003

== ENCOUNTER 2020-07-19 10:42 | Observation (INO) | payer MEDICARE, MEDICAID, OTHER, SELFPAY ==
[2020-07-19] VITALS (16 sets, daily range): BP systolic 122–151; BP diastolic 50–80; PULSE 77–112; RESP 17–22; TEMP 36.6–36.8; O2SAT 88–97; BMI 35.7; BMI 34.0
--- NOTE | 2020-07-19 10:48 | HMH.EDGENADL ---
ED Disposition Clinical Impression: Pneumonia Qualifiers: Pneumonia type: due to unspecified organism Laterality: right Lung location: upper lobe of lung Qualified Code(s): J18.9 - Pneumonia, unspecified organism Respiratory failure with hypoxia Qualifiers: Chronicity: acute Qualified Code(s): J96.01 - Acute respiratory failure with hypoxia Disposition: Admitted as Observation Condition on Discharge: Serious Referrals: Ben Fernandes MD [Primary Care Provider] - - Critical Care Critical Care Time: Yes Attestation: On , the high probability of a clinically significant, sudden or life threatening deterioration of the following system(s) required my full and direct attention, intervention and personal management. The time I documented below is in addition to time spent performing reported procedures but includes the following listed in this critical care notation. Total Critical Care Time: 30 Vital system(s) involved:: Respiratory Failure My critical care processes included: Assessment & monitoring of V/S, Initial and Re-exams, Data Review/Interpretation, Coordinating Care, Medication Orders and management, Documentation Medical Decision Making - Medical Records Medical records reviewed: Yes: I reviewed the patient's medical records. MR Comment: Reviewed discharge summary from admission 07/15/2020 through 07/18/2020. Reviewed chest x-ray report which showed right upper lobe pneumonia. Treated with Rocephin and Zithromax. Given a dose of vancomycin yesterday. Discharged on Omnicef and Zithromax. Discharged on low-dose steroids. - Diallo Inquiry Pt receiving controlled substance: No Vital Signs: 07/19/20 10:46 07/19/20 10:58 07/19/20 11:00 Temperature 98.3 F Temperature Source Oral Pulse Rate [Right Radial] 112 H 112 H Respiratory Rate 22 Blood Pressure [Right Arm] 143/75 H 132/76 Blood Pressure Mean [Right Arm] 97 94 Blood Pressure Source [Right Arm] Automatic Cuff Automatic Cuff Blood Pressure Position [Right Arm] Sitting Sitting 02 Sat by Pulse Oximetry 88 L 92 L 95 Oxygen Delivery Method Room Air Nasal Cannula Nasal Cannula Oxygen Flow Rate (LPM) 2 2 07/19/20 11:30 07/19/20 12:00 07/19/20 12:30 Temperature Temperature Source Pulse Rate [Right Radial] 93 H 86 94 H Respiratory Rate Blood Pressure [Right Arm] 151/77 H 143/75 H 128/75 Blood Pressure Mean [Right Arm] 101 97 92 Blood Pressure Source [Right Arm] Automatic Cuff Automatic Cuff Automatic Cuff Blood Pressure Position [Right Arm] Sitting Sitting Sitting 02 Sat by Pulse Oximetry 96 94 L 95 Oxygen Delivery Method Nasal Cannula Nasal Cannula Nasal Cannula Oxygen Flow Rate (LPM) 2 2 2 07/19/20 12:31 07/19/20 13:03 Temperature Temperature Source Pulse Rate [Right Radial] 92 H 82 Respiratory Rate Blood Pressure [Right Arm] 141/80 H 122/50 L Blood Pressure Mean [Right Arm] 100 74 Blood Pressure Source [Right Arm] Automatic Cuff Automatic Cuff Blood Pressure Position [Right Arm] Sitting Sitting 02 Sat by Pulse Oximetry 95 94 L Oxygen Delivery Method Nasal Cannula Nasal Cannula Oxygen Flow Rate (LPM) 2 2 - Lab Data Lab Results 07/19/20 10:58: WBC 31.9 H*, RBC 4.92, Hgb 14.8, Hct 46.2, MCV 93.8, MCH 30.0, MCHC 32.0, RDW 14.2, Plt Count 521 H, MPV 7.9, Neut % (Auto) 87.5 H, Lymph % (Auto) 5.4 L, [place] % (Auto) 5.0, Eos % (Auto) 1.0, Baso % (Auto) 1.0, Neut # (Auto) 27.9 H, Lymph # (Auto) 1.7, [place] # (Auto) 1.6 H, Eos # (Auto) 0.3, Baso # (Auto) 0.3 H, Total Counted 100, Neutrophils % (Manual) 86 H, Lymphocytes % (Manual) 8 L, Monocytes % (Manual) 6, Platelet Estimate Slight increase, RBC Morphology Normal 07/19/20 10:58: Sodium 135 L, Potassium 4.0, Chloride 101, Carbon Dioxide 25, Anion Gap 13.0, BUN 34 H, Creatinine 1.50 H, Estimated Creat Clear 68, Estimated GFR 46 L, Est GFR ( Amer) 56 L, Glucose 130 H, Calcium 9.2, Total Bilirubin 0.9, AST 56 D, ALT 138 H, Alkaline Phosphatase 125, Total Protein 7.9, Albumin 3.8, G
--- NOTE | 2020-07-19 10:56 | XR_ITS ---
PROCEDURE: XR CHEST PORTABLE CLINICAL HISTORY: SOA Shortness of air, former smoker COMPARISON: CR [id number] XR chest portable from 12/23/2017 CR XR CHEST PORTABLE from 07/15/2020 FINDINGS: The cardiomediastinal silhouette and pulmonary vascularity are within normal limits. Consolidation is present in the right upper lobe consistent with pneumonia probably there may be slightly worse. Increased markings noted in the lower lung zones felt to be due to overlying soft tissue attenuation and vascularity. No acute bony abnormalities. IMPRESSION: Right upper lobe pneumonia which may be slightly worse Dictated by: Yomi Ayala MD 07/19/2020 12:59 Yomi Ayala MD in [facility] 07/19/2020 12:59
--- NOTE | 2020-07-19 11:00 | PC.NURSE ---
rad at BS for portable xray
[2020-07-19 11:13] LABS: Basophils # 0.3 K/mm3 (0-0.2); Eosinophils # 0.3 K/mm3 (0.0-0.4); Hematocrit 46.2 % (42.0-52.0); Hemoglobin 14.8 g/dL (14.1-18.0); Lymphocytes # 1.7 K/mm3 (0.7-4.5); Lymphocytes % 5.4 % (10-50); Mean Corpuscular Volume 93.8 fl (80-94); Mean Platelet Volume 7.9 fl (7.4-10.4); Monocytes # 1.6 K/mm3 (0.1-1.0); Neutrophils # 27.9 K/mm3 (1.8-7.8); Neutrophils % 87.5 % (37.0-80.0); Platelet Count 521 K/mm3 (142-424); Red Blood Count 4.92 M/mm3 (4.60-6.20); Red Cell Distribution Width 14.2 % (11.5-17.5); White Blood Count 31.9 K/mm3 (4.8-10.8)
[2020-07-19 11:25] LABS: MANUAL DIFFERENTIAL MANUAL DIFFERENTIAL (MANUAL DIFF)
[2020-07-19 11:30] LABS: Alanine Aminotransferase 138 U/L (12-78); Albumin Level 3.8 g/dl (3.5-5.0); Albumin/Globulin Ratio 0.9 (1.1-1.8); Alkaline Phosphatase 125 U/L (38-126); Aspartate Amino Transferase 56 U/L (17-59); Bilirubin,Total 0.9 mg/dl (0.2-1.3); Blood Urea Nitrogen 34 mg/dl (9-20); Calcium 9.2 mg/dl (8.4-10.2); Carbon Dioxide 25 mmol/L (22.0-30.0); Chloride 101 mmol/L (98-107); Creatinine Clearance Estimated 68 mL/min (50-200); Estimated Glomerular Filt Rate 46 ml/min (>60); GFR (African American) 56 ML/MIN (>60); Globulin 4.1 g/dL (1.3-3.2); Glucose 130 mg/dl (74-100); Sodium 135 mmol/L (136-145); Total Protein,Serum 7.9 g/dl (6.3-8.2)
[2020-07-19 12:16] LABS: Coronavirus 19 IgG Antibody Negative (Negative); Coronavirus 19 IgM Antibody Negative (Negative)
[2020-07-19 12:25] LABS: Lymphocytes % 8 % (10-50); Monocytes % 6 % (2-9); Neutrophils % 86 % (42-76); Platelet Estimate Slight Increase; RBC Morphology Normal; Total Cells Counted 100
--- NOTE | 2020-07-19 13:04 | PC.NURSE ---
calling dr linton at this time.
--- NOTE | 2020-07-19 13:11 | PC.NURSE ---
Dr Simmons speaking with Dr Rausch.
--- NOTE | 2020-07-19 13:29 | PC.NURSE ---
Dr. Rausch called back and advises he is unable to get home O@ for pt and would like him admitted. notified care management of admission
--- NOTE | 2020-07-19 14:36 | P.CONPHA_ITS ---
[facility] Pharmacy VTE Monitoring - Patient Demographics Admission date: 07/19/20 Report Date: 07/19/20 Time: 14:36 Allergies/Adverse Reactions: Patient Allergies No Known Allergies Allergy (Verified 12/23/18 13:41) Height: 1.75 m Weight: 109.769 kg Patient Problems: Current Active Problems Pneumonia (Acute) Respiratory failure with hypoxia (Acute) - VTE Risk Labs: VTE Related Lab Results Hgb 14.8 g/dL (14.1-18.0) 07/19/20 10:58 Hct 46.2 % (42.0-52.0) 07/19/20 10:58 Plt Count 521 K/mm3 (142-424) H 07/19/20 10:58 BUN 34 mg/dl (9-20) H 07/19/20 10:58 Creatinine 1.50 mg/dl (0.66-1.25) H 07/19/20 10:58 Estimated Creat Clear 68 mL/min (50-200) 07/19/20 10:58 Clinical Trial Participant: No - Prophylaxis VTE Prophylaxis Ordered?: Yes Types of VTE Prophylaxis: TEDS Knee High
--- NOTE | 2020-07-19 14:46 | HMH.PHAINT ---
HOME MEDICATION LIST COMPARED TO LIST FROM DISCHARGE ON [id number]
[2020-07-19 14:54] LABS: Adenovirus,PCR Not Detected (NotDetected); Bordetella Pertussis Not Detected (NotDetected); Chlamydophila Pneumoniae, PCR Not Detected (NotDetected); Coronavirus 19, PCR Not Detected (NotDetected); Coronavirus 229E Not Detected (NotDetected); Coronavirus NL63 Not Detected (NotDetected); Coronavirus OC43 Not Detected (NotDetected); Coronovirus HKU1,PCR Not Detected (NotDetected); Human Metapneumovirus Not Detected (NotDetected); Influenza A, PCR Not Detected (NotDetected); Influenza AH1, 2009 Not Detected (NotDetected); Influenza AH1, PCR Not Detected (NotDetected); Influenza AH3,PCR Not Detected (NotDetected); Influenza B, PCR Not Detected (NotDetected); Mycoplasma Pneumoniae, PCR Not Detected (NotDetected); Parainfluenza 1, PCR Not Detected (NotDetected); Parainfluenza 2, PCR Not Detected (NotDetected); Parainfluenza 3, PCR Not Detected (NotDetected); Parainfluenza 4, PCR Not Detected (NotDetected); Respiratory Syncytial Virus Not Detected (NotDetected); Rhinovirus/Enterovirus Not Detected (NotDetected)
--- NOTE | 2020-07-19 15:03 | PC.NURSE ---
contacted lab to check on status of covid swab, states it will be approx 1 hour, states the swab was just put on the analyzer
--- NOTE | 2020-07-19 16:15 | PC.NURSE ---
spoke mir shea rn on second floor, notified him pt is ready of admission, states he will down to get report.
--- NOTE | 2020-07-19 16:59 | HMH.HP ---
*Admission Date: 07/19/20 *Chief complaint: short of breath, pneumonia *History of present illness: Mr. Terry is a 75-year-old gentleman who presented to the ER this morning with complaint of worsening shortness of breath since discharge home. Was recently admitted for pneumonia where his presenting complaint was worsening shortness of breath, cough, chills and fatigue. During admission his acute kidney injury resolved, he was tolerating supplemental oxygen with the ability to wean off, and doing better on nebulizer and oral antibiotics. At time of discharge did not meet criteria for home O2 but after getting home states he felt more short of breath, was using his nebulizer at home frequently with minimal improvement in his symptoms. On arrival to the ER he had an oxygen saturation of 88% on room air. Feels he was a little optimistic about getting home yesterday. Denies nausea, chest pain, syncope. Has a history of smoking but has not smoked in a few years. Extensive history of COPD and hypertension using inhalers but no history of oxygen. Pneumonia stable on x-ray, kidney function baseline. Continues to have marked leukocytosis. Covid PCR was performed and found to be negative. Medicine was consulted for admission for community-acquired pneumonia. On assessing the patient after he arrived to the floor, he states he is feeling ok with oxygen and breathing treatment but still quite fatigued and short of breath. Was eating a meal at the time of exam and sitting up at bedside. Denies nausea or vomiting, chest pain, confusion. [facility] History I have reviewed the patient's past medical history: Yes Medical History: Reports:: Chronic Obstructive Pulmonary Disease (COPD), Hypertension, Renal Insufficiency Denies:: Atherosclerotic Heart Disease, Cancer, Diabetes Mellitus Type 1, Diabetes Mellitus Type 2, Internal Pacemaker, MRSA, Seizures *Have you ever received a pneumonia vaccine?: No *Have you received a flu vaccine this season?: No Other Medical History: Denies: Blood Transfusion Reaction Laterality Cases: Left: Other Other Surgeries: Yes: Colonoscopy, Other. No: Pacemaker Amputation: No Fractures: No - *Social History Smoking Status: Former smoker Tobacco Type: cigarettes # Packs/Day (cigarettes): 1 Alcohol Intake: never Alcohol Intake Frequency:: other Substance Use Type: denies use *Occupational Status:: retired Housing: house Household Members: children *Travel in the last 8 weeks: None Family Hx:: No significant family history, Non-contributory Review of Systems - Review of Systems Review of systems:: pertinent systems reviewed and negative unless documented below (14 point review of systems performed, pertinent positives and negatives as per HPI) Meds Home Medications Medication Instructions Recorded Confirmed Type Amlodipine Besylate [Amlodipine 10 mg PO DAILY 12/23/17 07/19/20 History 10mg Tab] Cholecalciferol (Vitamin D3) 2,000 unit PO DAILY 12/23/17 07/19/20 History [Vitamin D3 1,000 Unit Cap] Hydrocod/Acet 5/325 mg [[place] 1 - 2 tab PO Q6HP PRN #30 tab 12/26/17 07/19/20 Rx 5/325mg tablet] Pantoprazole Sodium [Protonix 40mg 40 mg PO BID 60 Days tablet. 12/26/17 07/19/20 Rx tablet] Potassium Chloride [K-Tab ER 10 20 meq PO BID #60 tablet.er 12/26/17 07/19/20 Rx mEq] Ipratropium/Albuterol Sulfate 3 ml IH TID 07/15/20 07/19/20 History [Duoneb 3mL neb] hydroCHLOROthiazide [HCTZ 25mg 25 mg PO DAILY 07/15/20 07/19/20 History tab] lisinopriL [Lisinopril 10mg Tab] 5 mg PO DAILY 07/15/20 07/19/20 History Aspirin [Aspirin 81mg EC Tab] 81 mg PO DAILY 07/16/20 07/19/20 History Cetirizine HCl 10 mg PO DAILY 07/16/20 07/19/20 History Fluticasone/Vilanterol [Breo 1 puff IH DAILY 07/16/20 07/19/20 History Ellipta 200-25 Mcg INH] Azithromycin [Zithromax 250mg 250 mg PO DAILY 07/19/20 07/19/20 History tab] Cefdinir [Omnicef 300mg Capsule] 300 mg PO BID 0
--- NOTE | 2020-07-19 18:20 | PC.NURSE ---
PT BROUGHT 3 MEDICATIONS FROM HOME THEY ARE LOCKED IN THE MED DRAWER. ASKED FOR PT SON TO BRING IN MEDICATIONS THAT PT TAKES AT HOME. HE IS AOX4, ABLE TO MAKE NEEDS KNOWN TO STAFF, REQUIRES 2LNC FOR O2 SUPPORT, SITTING ON SIDE OF BED FOR MEAL AT TIME OF WRITING, HE DENIES N/V/D, NO C. PAIN THUS FAR, ABD IS SOFT/ROUND/AND NON-TENDER. HE STATES THAT HE HAD A BM YESTERDAY. HE IS USING THE URINAL AT THE BEDSIDE FOR ELIMINATION. HE TOLERATED AMBULATION TO RESTROOM VERY WELL AFTER ARRIVING THIS AFTERNOON. HE IS TOLERATING HIS DIET WELL. NO NEEDS AT THIS TIEM.
[2020-07-20] VITALS: BP 119/73; PULSE 102; RESP 18; TEMP 36.6; O2SAT 94
[2020-07-20 00:18] VITALS: PULSE 76; PULSE 78
[2020-07-20 04:00] VITALS: BP 126/64; PULSE 80; RESP 18; TEMP 36.7; O2SAT 93
[2020-07-20 06:31] LABS: Basophils # 0.2 K/mm3 (0-0.2); Basophils % 0.5 % (0.1-2.0); Eosinophils # 0.1 K/mm3 (0.0-0.4); Eosinophils % 0.3 % (0.1-12.0); Hematocrit 45.1 % (42.0-52.0); Hemoglobin 14.1 g/dL (14.1-18.0); Lymphocytes # 1.7 K/mm3 (0.7-4.5); Lymphocytes % 5.7 % (10-50); Mean Corpuscular HGB Conc 31.2 g/dL (31.8-35.4); Mean Corpuscular Hemoglobin 30.2 pg (27.0-31.2); Mean Corpuscular Volume 96.7 fl (80-94); Mean Platelet Volume 8.5 fl (7.4-10.4); Monocytes # 1.2 K/mm3 (0.1-1.0); Monocytes % 4.1 % (1.7-9.3); Neutrophils # 26.2 K/mm3 (1.8-7.8); Neutrophils % 89.3 % (37.0-80.0); Platelet Count 542 K/mm3 (142-424); Red Blood Count 4.66 M/mm3 (4.60-6.20); Red Cell Distribution Width 14.4 % (11.5-17.5); White Blood Count 29.3 K/mm3 (4.8-10.8)
[2020-07-20 06:40] VITALS: PULSE 93; PULSE 99; O2SAT 92
[2020-07-20 06:47] LABS: Anion Gap 11.5 mEq/L (5-15); Blood Urea Nitrogen 29 mg/dl (9-20); Calcium 9.1 mg/dl (8.4-10.2); Carbon Dioxide 28 mmol/L (22.0-30.0); Chloride 99 mmol/L (98-107); Creatinine Clearance Estimated 65 mL/min (50-200); Estimated Glomerular Filt Rate 46 ml/min (>60); GFR (African American) 56 ML/MIN (>60); Glucose 115 mg/dl (74-100); Potassium 4.5 mmoL/L (3.5-5.1); Sodium 134 mmol/L (136-145)
[2020-07-20 06:49] VITALS: BMI 34.0
[2020-07-20 07:04] LABS: Procalcitonin 0.344 ng/mL (0.0-2.0)
[2020-07-20 07:07] LABS: MANUAL DIFFERENTIAL MANUAL DIFFERENTIAL (MANUAL DIFF)
[2020-07-20 08:00] VITALS: BP 142/74; PULSE 105; RESP 18; TEMP 36.7; O2SAT 96
--- NOTE | 2020-07-20 08:25 | HMH.DCSUM ---
General - General Admission date:: 07/19/20 Discharge date: 07/20/20 HPI HPI: Mr. Terry is a 75-year-old gentleman who presented to the ER this morning with complaint of worsening shortness of breath since discharge home. Was recently admitted for pneumonia where his presenting complaint was worsening shortness of breath, cough, chills and fatigue. During admission his acute kidney injury resolved, he was tolerating supplemental oxygen with the ability to wean off, and doing better on nebulizer and oral antibiotics. At time of discharge did not meet criteria for home O2 but after getting home states he felt more short of breath, was using his nebulizer at home frequently with minimal improvement in his symptoms. On arrival to the ER he had an oxygen saturation of 88% on room air. Feels he was a little optimistic about getting home yesterday. Denies nausea, chest pain, syncope. Has a history of smoking but has not smoked in a few years. Extensive history of COPD and hypertension using inhalers but no history of oxygen. Pneumonia stable on x-ray, kidney function baseline. Continues to have marked leukocytosis. Covid PCR was performed and found to be negative. Medicine was consulted for admission for community-acquired pneumonia. On assessing the patient after he arrived to the floor, he states he is feeling ok with oxygen and breathing treatment but still quite fatigued and short of breath. Was eating a meal at the time of exam and sitting up at bedside. Denies nausea or vomiting, chest pain, confusion. Hospital Course Hospital Course: Patient was admitted, did very nicely overnight, doing well with oxygen with humidified air. Lung exam is much better, patient ate well, did all of his activities. He will be discharged home with 2 L nasal cannula oxygen, he will continue his antibiotics as previously prescribed and the current medications. We will follow him up in our office on Saturday morning in 3 days. Objective Vital signs: Temp Pulse Resp BP Pulse Ox 98.0 F 99 H 18 126/64 92 L 07/20/20 04:00 07/20/20 06:40 07/20/20 04:00 07/20/20 04:00 07/20/20 06:40 no acute distress, obese, chronically ill appearing - *Routine HEENT Exam Head: Present: normocephalic Eye: Present: EOMI, PERRL ENT: Present: mucous membranes moist - *Routine Neck Exam Present: supple - *Routine Respiratory Exam Present: rhonchi - *Routine Cardiovascular Exam Present: RRR - *Routine Abdominal Exam Present: soft, normoactive bowel sounds. Absent: tenderness - *Routine Extremities Exam Absent: cyanosis, clubbing, edema - *Routine Skin Exam Present: warm. Absent: rash - Detailed Eye Exam Eyelids: Bilateral normal inspection Results Labs on day of discharge: Labs from last 24 hours 07/20/20 07/20/20 07/20/20 05:15 05:15 05:15 WBC 29.3 H* RBC 4.66 Hgb 14.1 Hct 45.1 MCV 96.7 H MCH 30.2 MCHC 31.2 L RDW 14.4 Plt Count 542 H MPV 8.5 Neut % (Auto) 89.3 H Lymph % (Auto) 5.7 L [place] % (Auto) 4.1 Eos % (Auto) 0.3 Baso % (Auto) 0.5 Neut # (Auto) 26.2 H Lymph # (Auto) 1.7 [place] # (Auto) 1.2 H Eos # (Auto) 0.1 Baso # (Auto) 0.2 Total Counted Neutrophils % (Manual) Lymphocytes % (Manual) Monocytes % (Manual) Platelet Estimate RBC Morphology Sodium 134 L Potassium 4.5 Chloride 99 Carbon Dioxide 28 Anion Gap 11.5 BUN 29 H Creatinine 1.50 H Estimated Creat Clear 65 Estimated GFR 46 L Est GFR ( Amer) 56 L Glucose 115 H Calcium 9.1 Total Bilirubin AST ALT Alkaline Phosphatase Total Protein Albumin Globulin Albumin/Globulin Ratio Procalcitonin 0.344 Chlamy pneumoniae PCR Adenovirus (PCR) B. pertussis DNA (PCR) Coronavirus OC43 (PCR) Coronavirus HKU1 (PCR) Coronavirus 229E (PCR) SARS-CoV-2 (PCR) Coronavirus N
--- NOTE | 2020-07-20 09:04 | SW/DCPLANNER ---
PATIENT IS DISCHARGING HOME TODAY AND IS REQUIRING HOME 02 THIS WILL BE SET UP BY [facility] AND A TANK WILL BE DELIVERED TO HIS ROOM PRIOR TO DISCHARGED.. PATIENT IS ALSO REQUIRING HOME HUMIDIFICATION WITH 02..
[2020-07-20 09:05] LABS: Lymphocytes % 13 % (10-50); Monocytes % 6 % (2-9); Neutrophils % 81 % (42-76); Platelet Estimate Slight Increase; RBC Morphology Normal; Total Cells Counted 100
[2020-07-20 11:14] VITALS: PULSE 92; PULSE 95; O2SAT 94
== END 2020-07-20 12:00 | disposition home or self-care (01) ==
LOC: ER 13:31 → 2ND 17:16
PROVIDERS: Admitting Provider Internal Medicine Adolescent Medicine; Emergency Provider Emergency Medicine; PCP Internal Medicine Adolescent Medicine; Visit Provider Internal Medicine Adolescent Medicine
DX: J96.01 Acute respiratory failure with hypoxia (principal); J18.9 Pneumonia, unspecified organism; J43.9 Emphysema, unspecified; I12.9 Hypertensive chronic kidney disease with stage 1 through stage 4 chronic kidney disease, or unspecified chronic kidney disease; N18.30 Chronic kidney disease, stage 3 unspecified; Z87.891 Personal history of nicotine dependence; Z79.51 Long term (current) use of inhaled steroids; Z79.899 Other long term (current) drug therapy; Z79.52 Long term (current) use of systemic steroids; Z79.82 Long term (current) use of aspirin
CPT/HCPCS: 71045; 80048; 80053; 84145; 85007; 85025; 86328; 87581; 87633; 87798; 94640; 96365; 99284; G0378; J1956; U0003

== ENCOUNTER 2020-10-07 14:08 | Emergency (ER) | payer MEDICARE, MEDICAID, OTHER, SELFPAY ==
[2020-10-07 14:25] VITALS: BP 123/76; PULSE 91; RESP 18; TEMP 36.7; O2SAT 98; BMI 32.5
--- NOTE | 2020-10-07 14:39 | XR_ITS ---
PROCEDURE: XR CHEST 2V CLINICAL HISTORY: Cough COMPARISON: No exams were available for comparison FINDINGS: The cardiomediastinal silhouette and pulmonary vascularity are within normal limits. Background of chronic interstitial changes are noted. No lobar consolidation, pleural effusions or pneumothorax. Apical pleural thickening noted bilaterally. No acute bony abnormalities. IMPRESSION: Chronic interstitial changes. No lobar consolidation or pleural effusions. Dictated by: Wendi Juarez 10/07/2020 15:08 Wendi Juarez in [facility] 10/07/2020 15:10
[2020-10-07 15:15] VITALS: BP 137/76; PULSE 88; O2SAT 93
--- NOTE | 2020-10-07 15:28 | HMH.EDGENADL ---
ED Disposition Clinical Impression: Acute exacerbation of chronic obstructive airways disease Disposition: Home, Self-Care Condition on Discharge: Good Instructions: DI for Chronic Bronchitis Prescriptions: Doxycycline Hyclate [Doxycycline 100mg Capsule] 100 mg PO Q12 #20 cap [id number] Codeine Phosphate/Guaifenesin [Guaifenesin-Codeine Syrup] 10 ml PO Q8 #150 liquid Transmission Status: [facility] methylPREDNISolone [Medrol 4mg tab] 4 mg PO DIRECTED #21 tab Transmission Status: [facility] Referrals: Ben Fernandes MD [Primary Care Provider] - - Critical Care Critical Care Time: No Attestation: On 10/07/20, the high probability of a clinically significant, sudden or life threatening deterioration of the following system(s) required my full and direct attention, intervention and personal management. The time I documented below is in addition to time spent performing reported procedures but includes the following listed in this critical care notation. Medical Decision Making - Medical Records Medical records reviewed: Yes: I reviewed the patient's medical records. - Diallo Inquiry Pt receiving controlled substance: No Vital Signs: 10/07/20 14:25 Temperature 98.1 F Temperature Source Oral Pulse Rate [Right] 91 H Respiratory Rate 18 Blood Pressure [Right Arm] 123/76 Blood Pressure Mean [Right Arm] 91 02 Sat by Pulse Oximetry 98 Oxygen Delivery Method Room Air Orders (Tests/Meds): ED MEDICATIONS Discontinued Medications Generic Name Dose Route Start Last Admin Trade Name Freq PRN Reason Stop Dose Admin Albuterol/Ipratropium 3 ml 10/07/20 14:39 Ipratropium/Albuterol 3 Ml Neb IH 10/07/20 14:40 ONCE ONE - Radiology Data #1 Image(s): Chest Image Reviewed: Yes I reviewed the patient's radiology results, Yes I reviewed the patient's radiology image, Yes I discussed the image results w/the radiologist IMPRESSION: Chronic interstitial changes. No lobar consolidation or pleural effusions. - Reevaluation(s) Time: 15:36 Reevaluation #1: On reevaluation, the patient is feeling better. Repeat exam does not show any respiratory distress. Findings consistent with bronchitis. Patient be placed on a short course of steroids as well as antibiotics. He is to continue his inhalers at home. Patient needs to follow-up with his PCP in 48 hours. Given strict return precautions. Verbalized understanding. Medical Decision Narrative: 75-year-old male presented to the emergency department with some cough. Patient is a longstanding history of COPD. He does have some mild wheezing on examination, however there is no respiratory distress. Patient is no significant hypoxia at this time. Work-up will be initiated. General Adult HPI - General Chief complaint: Shortness of Breath/Dyspnea Stated complaint: soa, cough Time Seen by Provider: 10/07/20 14:30 Mode of Arrival: Family Vehicle Limitations: No Limitations Description of Symptoms (Recalled from ER Triage Doc. by RN): PATIENT C/O SOA WORSE WITH EXERTION. PT REPORTS HE HAS A HX OF COPD AND A HX OF PNEUMONIA. PT ALSO REPORTS A PRODUCTIVE COUGH. - History of Present Illness HPI narrative: This is a 75-year-old male presented to the emergency department with some cough. Patient is a longstanding history of COPD. Former smoker. He states that over the last 4 days he has been having some worsening cough. He states that he has been coughing so much that he has been unable to sleep. Patient does not wear oxygen at home. He had some mild shortness of breath with the coughing spells, however nothing out of his new ordinary. He has had a mild productive nature to the cough, white. Denies any hemoptysis. He is not having any associated chest pain or palpitations. No swelling. Denies any headache or change in vision. No fevers or chi
[2020-10-07 15:55] VITALS: BP 137/75; PULSE 87; RESP 18; TEMP 36.8; O2SAT 98
[2020-10-07 15:56] VITALS: PULSE 98; O2SAT 93
== END 2020-10-07 15:54 | disposition home or self-care (01) ==
PROVIDERS: Emergency Provider Emergency Medicine; PCP Internal Medicine Adolescent Medicine
DX: J44.1 Chronic obstructive pulmonary disease with (acute) exacerbation (principal); J20.9 Acute bronchitis, unspecified; I10 Essential (primary) hypertension; E78.5 Hyperlipidemia, unspecified; F17.210 Nicotine dependence, cigarettes, uncomplicated; Z87.891 Personal history of nicotine dependence; Z79.899 Other long term (current) drug therapy
CPT/HCPCS: 71046; 99282

== ENCOUNTER → 2021-02-23 11:19 | Outpatient (CLI) | payer MEDICARE, MEDICAID, OTHER, SELFPAY ==
[2021-02-23 11:45] LABS: Basophils # 0.1 K/mm3 (0-0.2); Basophils % 0.6 % (0.1-2.0); Eosinophils % 5.9 % (0.1-12.0); Hematocrit 37.6 % (42.0-52.0); Hemoglobin 11.6 g/dL (14.1-18.0); Lymphocytes # 2.2 K/mm3 (0.7-4.5); Mean Corpuscular HGB Conc 30.8 g/dL (31.8-35.4); Mean Corpuscular Hemoglobin 25.3 pg (27.0-31.2); Mean Corpuscular Volume 82.2 fl (80-94); Mean Platelet Volume 7.4 fl (7.4-10.4); Monocytes # 1.3 K/mm3 (0.1-1.0); Monocytes % 7.5 % (1.7-9.3); Neutrophils # 12.5 K/mm3 (1.8-7.8); Platelet Count 708 K/mm3 (142-424); Red Blood Count 4.57 M/mm3 (4.60-6.20); Red Cell Distribution Width 14.1 % (11.5-17.5); White Blood Count 17.1 K/mm3 (4.8-10.8)
[2021-02-23 11:50] LABS: MANUAL DIFFERENTIAL MANUAL DIFFERENTIAL (MANUAL DIFF)
[2021-02-23 12:22] LABS: Eosinophils % 4 % (0-3); Lymphocytes % 12 % (10-50); Monocytes % 7 % (2-9); Neutrophils % 76 % (42-76); Total Cells Counted 100
[2021-02-23 12:23] LABS: Hypochromasia 1+; Platelet Estimate Moderate Increase
[2021-02-23 13:14] LABS: Alanine Aminotransferase 60 U/L (12-78); Albumin Level 3.9 g/dl (3.5-5.0); Alkaline Phosphatase 171 U/L (38-126); Anion Gap 20.3 mEq/L (5-15); Aspartate Amino Transferase 43 U/L (17-59); Bilirubin,Total 0.6 mg/dl (0.2-1.3); Blood Urea Nitrogen 27 mg/dl (9-20); Calcium 9.5 mg/dl (8.4-10.2); Carbon Dioxide 20 mmol/L (22.0-30.0); Chloride 100 mmol/L (98-107); Chol/HDL Ratio 3.9 (1-3.5); Cholesterol 133 mg/dl (140-200); Estimated Glomerular Filt Rate 37 ml/min (>60); GFR (African American) 45 ML/MIN (>60); Glucose 88 mg/dl (74-100); HDL Cholesterol 34 mg/dl (40-60); Potassium 5.3 mmoL/L (3.5-5.1); Sodium 135 mmol/L (136-145); Total Protein,Serum 7.9 g/dl (6.3-8.2); Triglycerides 106 mg/dl (30-150); VLDL Cholesterol 21 mg/dL (0-40)
[2021-02-23 13:25] LABS: Direct LDL Cholesterol 70.09 mg/dL (100-129)
[2021-02-23 13:33] LABS: 25-OH Vitamin D, Total 124 ng/mL (30-100)
[2021-02-23 13:34] LABS: Free Thyroxine Index 3.6 ug/dL (5.93-13.13); T4 (Thyroxine) 11.1 ug/dl (5.53-11.0); Triiodothryronine (T3) Uptake 32 % (23.5-40.5)
[2021-02-23 13:48] LABS: Thyroid Stimulating Hormone 3.13 uIU/mL (0.465-4.68)
[2021-02-23 14:07] LABS: Vitamin B12 530 pg/mL (239-931)
== END ==
PROVIDERS: Visit Provider Internal Medicine Adolescent Medicine
DX: R53.81 Other malaise (principal); R53.83 Other fatigue; E78.5 Hyperlipidemia, unspecified; E67.3 Hypervitaminosis D
CPT/HCPCS: 36415; 80053; 80061; 82306; 82607; 84436; 84443; 84479; 85007; 85025

== ENCOUNTER → 2021-03-23 13:26 | Outpatient (CLI) | payer MEDICARE, MEDICAID, OTHER, SELFPAY ==
[2021-03-23 13:38] LABS: MANUAL DIFFERENTIAL MANUAL DIFFERENTIAL (MANUAL DIFF)
[2021-03-23 14:47] LABS: Alanine Aminotransferase 34 U/L (12-78); Albumin Level 3.9 g/dl (3.5-5.0); Albumin/Globulin Ratio 0.9 (1.1-1.8); Alkaline Phosphatase 132 U/L (38-126); Anion Gap 16.7 mEq/L (5-15); Aspartate Amino Transferase 30 U/L (17-59); Bilirubin,Total 0.4 mg/dl (0.2-1.3); Blood Urea Nitrogen 19 mg/dl (9-20); Calcium 9.7 mg/dl (8.4-10.2); Carbon Dioxide 22 mmol/L (22.0-30.0); Chloride 104 mmol/L (98-107); Estimated Glomerular Filt Rate 43 ml/min (>60); GFR (African American) 52 ML/MIN (>60); Globulin 4.4 g/dL (1.3-3.2); Glucose 87 mg/dl (74-100); Lactate Dehydrogenase 179 U/L (313-618); Potassium 4.7 mmoL/L (3.5-5.1); Sodium 138 mmol/L (136-145); Total Protein,Serum 8.3 g/dl (6.3-8.2); Uric Acid 3.7 mg/dl (3.5-8.5)
[2021-03-23 15:26] LABS: Basophils # 0.1 K/mm3 (0-0.2); Basophils % 0.9 % (0.1-2.0); Eosinophils # 0.7 K/mm3 (0.0-0.4); Eosinophils % 5.1 % (0.1-12.0); Hematocrit 40.1 % (42.0-52.0); Hemoglobin 12.4 g/dL (14.1-18.0); Lymphocytes # 2.2 K/mm3 (0.7-4.5); Lymphocytes % 14.8 % (10-50); Mean Corpuscular HGB Conc 30.8 g/dL (31.8-35.4); Mean Corpuscular Hemoglobin 26.1 pg (27.0-31.2); Mean Corpuscular Volume 84.5 fl (80-94); Mean Platelet Volume 7.8 fl (7.4-10.4); Monocytes % 6.8 % (1.7-9.3); Neutrophils # 10.5 K/mm3 (1.8-7.8); Neutrophils % 72.4 % (37.0-80.0); Platelet Count 684 K/mm3 (142-424); Red Blood Count 4.74 M/mm3 (4.60-6.20); Red Cell Distribution Width 15.4 % (11.5-17.5); White Blood Count 14.6 K/mm3 (4.8-10.8)
[2021-03-23 16:22] LABS: Eosinophils % 2 % (0-3); Lymphocytes % 23 % (10-50); Monocytes % 7 % (2-9); Neutrophils % 68 % (42-76); Total Cells Counted 100
[2021-03-23 16:24] LABS: Platelet Estimate Marked Increase
[2021-03-23 16:25] LABS: Hypochromasia 2+
[2021-03-31 03:36] LABS: Interpretation: Negative (.)
== END ==
PROVIDERS: Visit Provider Internal Medicine Medical Oncology
DX: D47.3 Essential (hemorrhagic) thrombocythemia (principal)
CPT/HCPCS: 36415; 80053; 81206; 81270; 83615; 84550; 85007; 85014; 85018; 85048; 85049

== ENCOUNTER 2021-06-05 08:19 | Emergency (ER) | payer MEDICARE, MEDICAID, OTHER, SELFPAY ==
--- NOTE | 2021-06-05 08:25 | ECG_ITS ---
APPROVED REPORT Exam: Resting ECG HR:93 bpm ECG Measurements Heart Rate 93 AXES W[place] 146 P 63 QRSd 80 QRS 64 QT 328 T 68 QTc 407 Conclusion Normal sinus rhythm Normal ECG Electronically signed by : Ben Fernandes MD 06/05/2021 14:20:07
[2021-06-05 08:27] VITALS: BP 141/85; PULSE 111; RESP 16; TEMP 37; O2SAT 95; BMI 31.7
[2021-06-05 09:00] VITALS: BP 149/88; PULSE 97; RESP 20; O2SAT 94
--- NOTE | 2021-06-05 09:05 | HMH.EDGENADL ---
ED Disposition Clinical Impression: Anxiety attack Disposition: Home, Self-Care Condition on Discharge: Good Additional Instructions: Follow-up in Dr. Fernandes's office within the next 2 weeks. Return to emergency for chest pain, shortness of breath. Referrals: Ben Fernandes MD [Primary Care Provider] - 7-14 days Time of Disposition: 11:35 - Critical Care Critical Care Time: No Attestation: On 06/05/21, the high probability of a clinically significant, sudden or life threatening deterioration of the following system(s) required my full and direct attention, intervention and personal management. The time I documented below is in addition to time spent performing reported procedures but includes the following listed in this critical care notation. Medical Decision Making - Medical Records Medical records reviewed: Yes: I reviewed the patient's medical records. - Diallo Inquiry Pt receiving controlled substance: No Vital Signs: 06/05/21 08:27 06/05/21 09:00 06/05/21 09:30 Temperature 98.6 F Temperature Source Oral Pulse Rate 97 H 93 H Pulse Rate [Left Radial] 111 H Respiratory Rate 16 20 20 Blood Pressure 149/88 H 125/75 Blood Pressure [Right Arm] 141/85 H Blood Pressure Mean 106 91 Blood Pressure Mean [Right Arm] 103 Blood Pressure Source [Right Arm] Automatic Cuff Blood Pressure Position [Right Arm] Sitting 02 Sat by Pulse Oximetry 95 94 L 94 L Oxygen Delivery Method Room Air - Lab Data Lab results reviewed: Yes: I reviewed the patient's lab results. Lab Results 06/05/21 09:19: WBC 16.9 H, RBC 5.83, Hgb 16.1, Hct 49.1, MCV 84.2, MCH 27.6, MCHC 32.8, RDW 17.2, Plt Count 501 H, MPV 7.9, Neut % (Auto) 72.2, Lymph % (Auto) 15.2, [place] % (Auto) 7.2, Eos % (Auto) 4.6, Baso % (Auto) 0.9, Neut # (Auto) 12.2 H, Lymph # (Auto) 2.6, [place] # (Auto) 1.2 H, Eos # (Auto) 0.8 H, Baso # (Auto) 0.2, Total Counted 100, Neutrophils % (Manual) 72, Lymphocytes % (Manual) 16, Monocytes % (Manual) 8, Eosinophils % (Manual) 4 H, Platelet Estimate Slight increase, RBC Morphology Normal 06/05/21 09:19: Sodium 135 L, Potassium 4.5, Chloride 101, Carbon Dioxide 26, Anion Gap 12.5, BUN 27 H, Creatinine 2.00 H, Estimated Creat Clear 45, Estimated GFR 33 L, Est GFR ( Amer) 40 L, Glucose 116 H, Calcium 10.0 06/05/21 11:05: Urine Color Yellow, Urine Appearance Clear, Urine pH 6.0, Ur Specific [place] 1.020, Urine Protein Negative, Urine Glucose (UA) Negative, Urine Ketones Negative, Urine Blood Negative, Urine Nitrate Negative, Urine Bilirubin Negative, Urine Urobilinogen 0.2, Ur Leukocyte Esterase Negative, Urine RBC None, Urine WBC Occasional, Ur Squamous Epith Cells Occasional, Urine Bacteria Trace Result diagrams: 06/05/21 09:19 06/05/21 09:19 Orders (Tests/Meds): ORDERS Category Date Time Status Rapid PCR Covid and Flu A/B Stat Lab 06/05/21 10:14 Ordered - Radiology Data #1 Image(s): Chest Image Reviewed: Yes I reviewed the patient's radiology image Preliminary Findings: Abnormal COPD/emphysematous changes - ECG Data Tracing #1 I reviewed this ECG and interpreted as documented below: Normal sinus rhythm, 9 3 bpm, no ST elevation or depression, no ectopy, normal intervals. ECG initial impression date: 06/05/21 ECG initial impression time: 08:32 Medical Decision Narrative: 76yo M evaluated for an anxiety attack. Patient no acute stress on his evaluation. His symptoms have resolved prior to evaluation in the emergency department. EKG reviewed as above. Patient's routine laboratory studies were obtained and found have a creatinine of 2.0. Case this with Dr. Rausch who states the patient was seen there recently and had a creatinine of 1.8. His other labs seem to be at baseline. Patient is appropriate and stable for discharge home. Dr. Rausch would like to have the patient follow-up in the clinic within the next 2 weeks. General Adult HPI - General Chief complaint: Recheck/Abnor
[2021-06-05 09:30] VITALS: BP 125/75; PULSE 93; RESP 20; O2SAT 94
[2021-06-05 09:32] LABS: Basophils # 0.2 K/mm3 (0-0.2); Basophils % 0.9 % (0.1-2.0); Eosinophils # 0.8 K/mm3 (0.0-0.4); Eosinophils % 4.6 % (0.1-12.0); Hematocrit 49.1 % (42.0-52.0); Hemoglobin 16.1 g/dL (14.1-18.0); Lymphocytes # 2.6 K/mm3 (0.7-4.5); Lymphocytes % 15.2 % (10-50); Mean Corpuscular HGB Conc 32.8 g/dL (31.8-35.4); Mean Corpuscular Hemoglobin 27.6 pg (27.0-31.2); Mean Corpuscular Volume 84.2 fl (80-94); Mean Platelet Volume 7.9 fl (7.4-10.4); Monocytes # 1.2 K/mm3 (0.1-1.0); Monocytes % 7.2 % (1.7-9.3); Neutrophils # 12.2 K/mm3 (1.8-7.8); Neutrophils % 72.2 % (37.0-80.0); Platelet Count 501 K/mm3 (142-424); Red Blood Count 5.83 M/mm3 (4.60-6.20); Red Cell Distribution Width 17.2 % (11.5-17.5); White Blood Count 16.9 K/mm3 (4.8-10.8)
[2021-06-05 09:37] LABS: MANUAL DIFFERENTIAL MANUAL DIFFERENTIAL (MANUAL DIFF)
[2021-06-05 09:39] LABS: Chloride 101 mmol/L (98-107); Potassium 4.5 mmoL/L (3.5-5.1); Sodium 135 mmol/L (136-145)
[2021-06-05 09:42] LABS: Anion Gap 12.5 mEq/L (5-15); Blood Urea Nitrogen 27 mg/dl (9-20); Carbon Dioxide 26 mmol/L (22.0-30.0); Creatinine Clearance Estimated 45 mL/min (50-200); Estimated Glomerular Filt Rate 33 ml/min (>60); GFR (African American) 40 ML/MIN (>60); Glucose 116 mg/dl (74-100)
--- NOTE | 2021-06-05 09:44 | XR_ITS ---
PROCEDURE: XR CHEST PORTABLE CLINICAL HISTORY: leukocytosis COMPARISON: No exams were available for comparison FINDINGS: Exam is somewhat rotated. The cardiomediastinal silhouette and pulmonary vascularity are within normal limits. COPD with emphysematous changes. In the right apex there is increased density somewhat obscured by overlying ribs and clavicle. Cannot exclude a lesion at this area. This could also be related to the patient's rotation with overlying rib and clavicle. Calcified granuloma left midlung. No lobar consolidation or collapse. IMPRESSION: COPD with emphysematous changes. Possible right upper lobe lesion versus overlying artifact from the clavicle and the 1st rib on this rotated exam. Non rotated PA and lateral chest may provide further evaluation. Dictated by: Yomi Ayala MD 06/05/2021 11:05 Yomi Ayala MD in [place] 06/05/2021 11:05
[2021-06-05 10:00] LABS: Eosinophils % 4 % (0-3); Lymphocytes % 16 % (10-50); Monocytes % 8 % (2-9); Neutrophils % 72 % (42-76); Platelet Estimate Slight Increase; RBC Morphology Normal; Total Cells Counted 100
[2021-06-05 11:14] LABS: Microscopic, Urine URINE MICROSCOPIC (MICROSCOPIC)
[2021-06-05 11:18] LABS: Appearance,Urine CLEAR (Clear); Bilirubin,Urine Negative (Negative); Blood, Urine Negative (Negative); Color,Urine YELLOW (Yellow); Glucose,Urine (UA) Negative (Negative); Ketones,Urine Negative (Negative); Leukocyte Esterase,Urine Negative (Negative); Nitrate,Urine Negative (Negative); Protein,Urine Negative (Negative); Urobilinogen,Urine 0.2 EU/dl (0.2)
--- NOTE | 2021-06-05 11:27 | PC.NURSE ---
speaking with Cedrick
[2021-06-05 11:34] LABS: Bacteria,Urine Trace /lpf; Squamous Epithelial Cell,Urine Occasional #/hpf (0-5); WBC,Urine Occasional #/hpf (0-3)
[2021-06-05 11:49] VITALS: BP 118/80; PULSE 86; RESP 20; TEMP 37; O2SAT 95
== END 2021-06-05 11:50 | disposition home or self-care (01) ==
PROVIDERS: Emergency Provider Family Medicine; PCP Internal Medicine Adolescent Medicine
DX: F41.0 Panic disorder [episodic paroxysmal anxiety] (principal); J44.9 Chronic obstructive pulmonary disease, unspecified
CPT/HCPCS: 71045; 80048; 81001; 85007; 85025; 93005; 99284

== ENCOUNTER → 2021-07-20 08:04 | Outpatient (CLI) | payer MEDICARE, MEDICAID, SELFPAY ==
[2021-07-20 08:26] LABS: Basophils # 0.1 K/mm3 (0-0.2); Basophils % 0.9 % (0.1-2.0); Eosinophils # 0.8 K/mm3 (0.0-0.4); Eosinophils % 7.1 % (0.1-12.0); Hematocrit 46.9 % (42.0-52.0); Hemoglobin 15.5 g/dL (14.1-18.0); Lymphocytes # 1.9 K/mm3 (0.7-4.5); Lymphocytes % 16.4 % (10-50); Mean Corpuscular HGB Conc 33.1 g/dL (31.8-35.4); Mean Corpuscular Hemoglobin 28.5 pg (27.0-31.2); Mean Corpuscular Volume 86.2 fl (80-94); Mean Platelet Volume 8.2 fl (7.4-10.4); Monocytes # 0.9 K/mm3 (0.1-1.0); Monocytes % 8.1 % (1.7-9.3); Neutrophils # 7.6 K/mm3 (1.8-7.8); Neutrophils % 67.5 % (37.0-80.0); Platelet Count 427 K/mm3 (142-424); Red Blood Count 5.44 M/mm3 (4.60-6.20); Red Cell Distribution Width 15.8 % (11.5-17.5); White Blood Count 11.2 K/mm3 (4.8-10.8)
== END ==
PROVIDERS: Visit Provider Internal Medicine Medical Oncology
DX: D64.9 Anemia, unspecified (principal)
CPT/HCPCS: 36415; 85025

== ENCOUNTER 2021-08-20 17:40 | Emergency (ER) | payer MEDICARE, MEDICAID, SELFPAY ==
--- NOTE | 2021-08-20 | ECG_ITS ---
APPROVED REPORT Exam: Resting ECG HR:83 bpm ECG Measurements Heart Rate 83 AXES IN 132 P 35 QRSd 91 QRS 54 QT 333 T 1 QTc 373 Conclusion SINUS RHYTHM LOW QRS VOLTAGE IN PRECORDIAL LEADS [QRS DEFLECTION < 1.0 mV IN CHEST LEADS] NONSPECIFIC T-WAVE ABNORMALITY BORDERLINE ECG UNCONFIRMED REPORT Electronically signed by : Ben Fernandes MD 08/23/2021 21:09:39
[2021-08-20 17:46] VITALS: BP 133/66; PULSE 98; RESP 20; TEMP 36.9; O2SAT 94; BMI 32.5
--- NOTE | 2021-08-20 17:59 | XR_ITS ---
PROCEDURE INFORMATION: Exam: XR Chest Exam date and time: 08/20/2021 5:59 PM Age: 76 years old Clinical indication: Dyspnea TECHNIQUE: Imaging protocol: XR of the chest. Views: 1 view. COMPARISON: CR XR CHEST 2V 10/07/2020 2:50 PM FINDINGS: Lungs: Interstitial haziness in both lungs findings concerning for patchy viral pneumonia. Underlying chronic interstitial lung disease and pulmonary fibrosis. COPD. Pleural spaces: Unremarkable. No pleural effusion. No pneumothorax. Heart/Mediastinum: Unremarkable. No cardiomegaly. Bones/joints: Unremarkable. IMPRESSION: Multifocal viral pneumonia. Correlate clinically
[2021-08-20 18:20] LABS: Coronavirus 19, PCR Not Detected (NotDetected); Influenza A, PCR Not Detected (NotDetected); Influenza B, PCR Not Detected (NotDetected)
--- NOTE | 2021-08-20 18:30 | PC.NURSE ---
blood collected and sent to the lab
[2021-08-20 18:45] LABS: Basophils # 0.2 K/mm3 (0-0.2); Basophils % 1.4 % (0.1-2.0); Eosinophils # 0.4 K/mm3 (0.0-0.4); Eosinophils % 3.4 % (0.1-12.0); Hemoglobin 14.8 g/dL (14.1-18.0); Lymphocytes # 1.8 K/mm3 (0.7-4.5); Lymphocytes % 13.5 % (10-50); Mean Corpuscular HGB Conc 31.5 g/dL (31.8-35.4); Mean Corpuscular Hemoglobin 27.6 pg (27.0-31.2); Mean Corpuscular Volume 87.6 fl (80-94); Mean Platelet Volume 8.1 fl (7.4-10.4); Monocytes # 0.8 K/mm3 (0.1-1.0); Monocytes % 6.4 % (1.7-9.3); Neutrophils # 9.8 K/mm3 (1.8-7.8); Neutrophils % 75.3 % (37.0-80.0); Platelet Count 529 K/mm3 (142-424); Red Blood Count 5.36 M/mm3 (4.60-6.20); Red Cell Distribution Width 15.4 % (11.5-17.5)
[2021-08-20 18:46] LABS: VBG Base Excess -4.7 mmol/L (-2.4-2.3); VBG Oxygen Saturation 89.6 % (50-70); VBG PCO2 39.9 mmol/L (35-51); VBG PH 7.34 mmol/L (7.31-7.41); VBG PO2 56.1 mmol/L (28-40); VBG Total CO2 22.3 mmol/L (23-27)
[2021-08-20 18:46] LABS: Chloride 104 mmol/L (98-107); Potassium 4.7 mmoL/L (3.5-5.1); Sodium 133 mmol/L (136-145)
[2021-08-20 18:49] LABS: Alanine Aminotransferase 32 U/L (12-78); Albumin Level 4.4 g/dl (3.5-5.0); Albumin/Globulin Ratio 1.3 (1.1-1.8); Alkaline Phosphatase 85 U/L (38-126); Anion Gap 10.7 mEq/L (5-15); Aspartate Amino Transferase 32 U/L (17-59); Bilirubin,Total 0.5 mg/dl (0.2-1.3); Blood Urea Nitrogen 21 mg/dl (9-20); Calcium 8.6 mg/dl (8.4-10.2); Carbon Dioxide 23 mmol/L (22.0-30.0); Creatinine Clearance Estimated 57 mL/min (50-200); Estimated Glomerular Filt Rate 42 ml/min (>60); GFR (African American) 51 ML/MIN (>60); Globulin 3.5 g/dL (1.3-3.2); Glucose 121 mg/dl (74-100); Total Protein,Serum 7.9 g/dl (6.3-8.2)
[2021-08-20 19:04] LABS: Troponin I < 0.01 ng/ml (0.00-0.034)
[2021-08-20 19:27] VITALS: PULSE 88
--- NOTE | 2021-08-20 19:35 | HMH.EDGENADL ---
ED Disposition Clinical Impression: COPD (chronic obstructive pulmonary disease) Disposition: Home, Self-Care Condition on Discharge: Good Instructions: Chronic Obstructive Pulmonary Disease Additional Instructions: Please keep your appointment with your primary care physician this week. Please take your prednisolone starting on 08/23. Please also take your antibiotic as prescribed. Please also take your MDI albuterol inhaler 4 puffs every 6 hours for the next 2 days and then as needed. Please return for any concerning symptoms such as difficulty breathing, chest pain, symptoms that don't improve or any other concerning symptom. Prescriptions: prednisoLONE [Millipred Dp] 5 mg PO DIRECTED #1 tab Transmission Status: Received by [facility] # Azithromycin [Z-Gelacio 250mg Tab*] 250 mg PO UD DOSE PK #6 tab Transmission Status: Received by [facility] # Referrals: Provider,Referral, [Primary Care Provider] - Time of Disposition: 20:10 - Critical Care Critical Care Time: No Attestation: On 08/20/21, the high probability of a clinically significant, sudden or life threatening deterioration of the following system(s) required my full and direct attention, intervention and personal management. The time I documented below is in addition to time spent performing reported procedures but includes the following listed in this critical care notation. Medical Decision Making - Medical Records Medical records reviewed: Yes: I reviewed the patient's medical records. - Diallo Inquiry Pt receiving controlled substance: No Vital Signs: 08/20/21 17:46 08/20/21 19:27 08/20/21 20:09 Temperature 98.5 F 98.2 F Temperature Source Oral Oral Pulse Rate 88 82 Pulse Rate [Right Radial] 98 H Respiratory Rate 20 18 Blood Pressure 142/70 H Blood Pressure [Right Arm] 133/66 Blood Pressure Mean [Right Arm] 88 Blood Pressure Source Automatic Cuff Blood Pressure Source [Right Arm] Automatic Cuff Blood Pressure Position Sitting Blood Pressure Position [Right Arm] Sitting 02 Sat by Pulse Oximetry 94 L Oxygen Delivery Method Room Air Room Air - Lab Data Lab results reviewed: Yes: I reviewed the patient's lab results. Lab Results 08/20/21 17:59: VBG pH 7.34, VBG pCO2 39.9, VBG pO2 56.1 H, VBG HCO3 21.0 L, VBG Total CO2 22.3 L, VBG O2 Saturation 89.6 H, VBG Base Excess -4.7 L 08/20/21 18:04: SARS-CoV-2 (PCR) Not detected, Influenza A Untype (PCR) Not detected, Influenza Type B (PCR) Not detected 08/20/21 18:27: WBC 13.0 H, RBC 5.36, Hgb 14.8, Hct 47.0, MCV 87.6, MCH 27.6, MCHC 31.5 L, RDW 15.4, Plt Count 529 H, MPV 8.1, Neut % (Auto) 75.3, Lymph % (Auto) 13.5, [place] % (Auto) 6.4, Eos % (Auto) 3.4, Baso % (Auto) 1.4, Neut # (Auto) 9.8 H, Lymph # (Auto) 1.8, [place] # (Auto) 0.8, Eos # (Auto) 0.4, Baso # (Auto) 0.2 08/20/21 18:27: Sodium 133 L, Potassium 4.7, Chloride 104, Carbon Dioxide 23, Anion Gap 10.7, BUN 21 H, Creatinine 1.60 H, Estimated Creat Clear 57, Estimated GFR 42 L, Est GFR ( Amer) 51 L, Glucose 121 H, Calcium 8.6, Total Bilirubin 0.5, AST 32, ALT 32, Alkaline Phosphatase 85, Troponin I < 0.01, Total Protein 7.9, Albumin 4.4, Globulin 3.5 H, Albumin/Globulin Ratio 1.3 Result diagrams: 08/20/21 18:27 08/20/21 18:27 Orders (Tests/Meds): ED MEDICATIONS Discontinued Medications Generic Name Dose Route Start Last Admin Trade Name Freq PRN Reason Stop Dose Admin Albuterol/Ipratropium 3 ml 08/20/21 18:01 08/20/21 18:26 Ipratropium/Albuterol 3 Ml Neb IH 08/20/21 18:02 3 ml ONCE ONE Administration Dexamethasone Sodium Phosphate 8 mg 08/20/21 17:59 08/20/21 18:33 Dexamethasone 4mg/Ml 1ml Vial IV 08/20/21 18:00 8 mg ONCE ONE Administration ORDERS Category Date Time Status Troponin I Q3H Lab 08/20/21 21:00 Stop Req Troponin I Q3H Lab 08/21/21 00:00 Ordered ECG Request by /Tatum Stat Y 08/20/21 18:00 Ordered Medical Decisio
[2021-08-20 20:09] VITALS: BP 142/70; PULSE 82; RESP 18; TEMP 36.8; O2SAT 94
== END 2021-08-20 20:14 | disposition home or self-care (01) ==
PROVIDERS: Emergency Provider Student in an Organized Health Care Education/Training Program
DX: J44.9 Chronic obstructive pulmonary disease, unspecified (principal); E78.5 Hyperlipidemia, unspecified; I10 Essential (primary) hypertension; N28.9 Disorder of kidney and ureter, unspecified; Z20.822 Contact with and (suspected) exposure to COVID-19; F17.210 Nicotine dependence, cigarettes, uncomplicated
CPT/HCPCS: 71045; 80053; 82803; 84484; 85025; 93005; 99283; C9803; U0003; U0005

== ENCOUNTER → 2021-09-13 13:34 | Outpatient (CLI) | payer MEDICARE, MEDICAID, SELFPAY ==
--- NOTE | 2021-09-13 13:38 | US_ITS ---
FINAL REPORT TECHNIQUE: Ultrasound images of the kidneys and bladder were obtained. CLINICAL HISTORY: CKD FINDINGS: The right kidney measures 11.2 cm in length. There is a solid-appearing mass measuring 6.3 x 5.9 cm. There is a 2.5 cm probable cyst. There is no hydronephrosis. The left kidney measures 10.2 cm in length. It is normal in echogenicity. There is no hydronephrosis. IMPRESSION: Solid-appearing mass in the right kidney. Recommend renal mass protocol CT. Reviewed, Interpreted and Dictated by Jayson Zhang III, MD Transcribed by Jessie Broussard Authenticated by Jayson Zhang III, MD on 09/13/2021 04:02:[address] [facility]
== END ==
PROVIDERS: PCP Internal Medicine Adolescent Medicine; Visit Provider Internal Medicine Adolescent Medicine
DX: N18.9 Chronic kidney disease, unspecified (principal)
CPT/HCPCS: 76770

== ENCOUNTER → 2021-09-27 13:56 | Outpatient (CLI) | payer MEDICARE, MEDICAID, SELFPAY ==
--- NOTE | 2021-09-27 13:59 | CT_ITS ---
FINAL REPORT CLINICAL HISTORY: CHRONIC KIDNEY DISEASE FINDINGS: CT ABDOMEN AND PELVIS WITHOUT CONTRAST TECHNIQUE: Axial CT images of the abdomen were obtained without intravenous contrast. Coronal reformatted images were also obtained.This study was performed with techniques to keep radiation doses as low as reasonably achievable (ALARA). Individualized dose reduction techniques using automated exposure control or adjustment of mA and/or kV according to the patient's size were employed. Abdomen: There is moderately advanced changes of centrilobular emphysema at the lung bases. There is some high density in the gallbladder which could be related to sludge. The liver, spleen, pancreas and adrenals have an unremarkable, unenhanced appearance. There is a large mass in the right kidney measuring 8.5 x 8.1 cm in AP and transverse dimensions. This has lobular margins and there is some mild surrounding stranding. These findings are highly concerning for neoplasia. The left kidney is unremarkable. There is a moderate-sized ventral hernia containing segments of large and small bowel. IMPRESSION: 8.5 x 8.1 cm right renal mass which is highly concerning for renal cell carcinoma. Correlation with infused exam would be of value. Reviewed, Interpreted and Dictated by Jose E Vail MD Transcribed by Jessie Broussard Authenticated by Jose E Vail MD on 09/27/2021 03:23:23 PM [facility]
== END ==
PROVIDERS: PCP Internal Medicine Adolescent Medicine; Visit Provider Internal Medicine Adolescent Medicine
DX: N18.9 Chronic kidney disease, unspecified (principal)
CPT/HCPCS: 74150

== ENCOUNTER 2021-09-28 14:26 | Emergency (ER) | payer MEDICARE, MEDICAID, SELFPAY ==
[2021-09-28] VITALS (7 sets, daily range): BP systolic 120–127; BP diastolic 59–72; PULSE 81–102; RESP 14–32; TEMP 36.6–36.8; O2SAT 93–98; BMI 34.0
--- NOTE | 2021-09-28 14:33 | ECG_ITS ---
APPROVED REPORT Exam: Resting ECG HR:97 bpm ECG Measurements Heart Rate 97 AXES IL 143 P -5 QRSd 89 QRS 54 QT 319 T 65 QTc 373 Conclusion SINUS RHYTHM NORMAL ECG UNCONFIRMED REPORT Electronically signed by : Ben Fernandes MD 09/29/2021 19:40:48
--- NOTE | 2021-09-28 14:36 | XR_ITS ---
FINAL REPORT CLINICAL HISTORY: SOB COMPARISON: August 20, 2022 FINDINGS: The heart size is normal. The mediastinum is normal. There are coarse linear densities in the lung bases consistent with scarring or fibrosis. Findings are more evident on prior exam but favored to be chronic. There are no pleural effusions. There is no pneumothorax. There is no osseous abnormality. IMPRESSION: No acute cardiopulmonary process Reviewed, Interpreted and Dictated by Jose E Vail MD Transcribed by Shukri Kim Authenticated by Jose E Vail MD on 09/28/2021 03:15:16 PM [facility]
--- NOTE | 2021-09-28 14:36 | PC.NURSE ---
ED MD at
--- NOTE | 2021-09-28 14:40 | HMH.EDGENADL ---
ED Disposition Clinical Impression: COPD exacerbation Disposition: Home, Self-Care Condition on Discharge: Good Additional Instructions: Follow-up with Dr. Fernandes this Saturday at 11 AM, use albuterol nebulizer every 4-6 hours for the next 1 to 2 days for shortness of breath. Take prednisone, Zithromax as directed. Return to ED with new or concerning symptoms. Prescriptions: Azithromycin 250 mg PO DAILY 5 Days #6 tab Transmission Status: Pending to [facility] # predniSONE [Prednisone 20mg Tab] 40 mg PO DIRECTED 5 Days #10 tab Transmission Status: Pending to [facility] #[id number] Referrals: Ben Fernandes MD [Primary Care Provider] - - Critical Care Critical Care Time: No Attestation: On , the high probability of a clinically significant, sudden or life threatening deterioration of the following system(s) required my full and direct attention, intervention and personal management. The time I documented below is in addition to time spent performing reported procedures but includes the following listed in this critical care notation. Medical Decision Making - Medical Records Medical records reviewed: Yes: I reviewed the patient's medical records. - Diallo Inquiry Pt receiving controlled substance: No Vital Signs: 09/28/21 14:26 09/28/21 15:28 09/28/21 15:30 Temperature 98 F Temperature Source Oral Pulse Rate 88 93 H Pulse Rate [Radial] 102 H Respiratory Rate 32 H 21 Blood Pressure 127/59 L Blood Pressure [Right Arm] 122/72 Blood Pressure Mean [Right Arm] 88 Blood Pressure Position [Right Arm] Sitting 02 Sat by Pulse Oximetry 98 95 Oxygen Delivery Method Room Air 09/28/21 16:00 09/28/21 16:30 09/28/21 17:00 Temperature Temperature Source Pulse Rate 85 82 87 Pulse Rate [Radial] Respiratory Rate 21 17 14 Blood Pressure 120/60 120/59 L 127/62 Blood Pressure [Right Arm] Blood Pressure Mean [Right Arm] Blood Pressure Position [Right Arm] 02 Sat by Pulse Oximetry 95 93 L 94 L Oxygen Delivery Method - Lab Data Lab Results 09/28/21 14:55: WBC 11.9 H, RBC 5.23, Hgb 14.9, Hct 46.4, MCV 88.8, MCH 28.4, MCHC 32.0, RDW 15.6, Plt Count 448 H, MPV 8.5, Neut % (Auto) 75.9, Lymph % (Auto) 13.3, [place] % (Auto) 6.5, Eos % (Auto) 3.5, Baso % (Auto) 0.8, Neut # (Auto) 9.0 H, Lymph # (Auto) 1.6, [place] # (Auto) 0.8, Eos # (Auto) 0.4, Baso # (Auto) 0.1 09/28/21 14:55: Sodium 136, Potassium 4.6, Chloride 105, Carbon Dioxide 23, Anion Gap 12.6, BUN 20, Creatinine 1.80 H, Estimated Creat Clear 53, Estimated GFR 37 L, Est GFR ( Amer) 45 L, Glucose 114 H, Calcium 8.5, Total Bilirubin 0.8, AST 28, ALT 26, Alkaline Phosphatase 93, Troponin I < 0.01, Total Protein 7.2, Albumin 4.1, Globulin 3.1, Albumin/Globulin Ratio 1.3 09/28/21 14:55: NT-Pro-B Natriuret Pep 48.8 Result diagrams: 09/28/21 14:55 09/28/21 14:55 Orders (Tests/Meds): ED MEDICATIONS Discontinued Medications Generic Name Dose Route Start Last Admin Trade Name Freq PRN Reason Stop Dose Admin Albuterol/Ipratropium 6 ml 09/28/21 14:55 09/28/21 15:27 Ipratropium/Albuterol 3 Ml Neb IH 09/28/21 14:56 6 ml ONCE ONE Administration Prednisone 40 mg 09/28/21 14:54 09/28/21 15:31 Prednisone 20mg Tab PO 09/28/21 14:55 40 mg ONCE ONE Administration ORDERS Category Date Time Status Troponin I Q3H Lab 09/28/21 17:45 Ordered Troponin I Q3H Lab 09/28/21 20:45 Ordered - Radiology Data #1 Image(s): Chest Image Reviewed: Yes I reviewed the patient's radiology results, Yes I reviewed the patient's radiology image INDINGS: The heart size is normal. The mediastinum is normal. There are coarse linear densities in the lung bases consistent with scarring or fibrosis. Findings are more evident on prior exam but favored to be chronic. There are no pleural effusions. There is no pneumothorax. There is no osseous abnormality. IMPRESSION: No acute c
[2021-09-28 15:15] LABS: Basophils # 0.1 K/mm3 (0-0.2); Basophils % 0.8 % (0.1-2.0); Eosinophils # 0.4 K/mm3 (0.0-0.4); Eosinophils % 3.5 % (0.1-12.0); Hematocrit 46.4 % (42.0-52.0); Hemoglobin 14.9 g/dL (14.1-18.0); Lymphocytes # 1.6 K/mm3 (0.7-4.5); Lymphocytes % 13.3 % (10-50); Mean Corpuscular Hemoglobin 28.4 pg (27.0-31.2); Mean Corpuscular Volume 88.8 fl (80-94); Mean Platelet Volume 8.5 fl (7.4-10.4); Monocytes # 0.8 K/mm3 (0.1-1.0); Monocytes % 6.5 % (1.7-9.3); Neutrophils % 75.9 % (37.0-80.0); Platelet Count 448 K/mm3 (142-424); Red Blood Count 5.23 M/mm3 (4.60-6.20); Red Cell Distribution Width 15.6 % (11.5-17.5); White Blood Count 11.9 K/mm3 (4.8-10.8)
[2021-09-28 15:24] LABS: Chloride 105 mmol/L (98-107); Potassium 4.6 mmoL/L (3.5-5.1); Sodium 136 mmol/L (136-145)
[2021-09-28 15:26] LABS: Blood Urea Nitrogen 20 mg/dl (9-20); Creatinine Clearance Estimated 53 mL/min (50-200); Estimated Glomerular Filt Rate 37 ml/min (>60); GFR (African American) 45 ML/MIN (>60)
[2021-09-28 15:27] LABS: Alanine Aminotransferase 26 U/L (12-78); Albumin Level 4.1 g/dl (3.5-5.0); Albumin/Globulin Ratio 1.3 (1.1-1.8); Alkaline Phosphatase 93 U/L (38-126); Anion Gap 12.6 mEq/L (5-15); Aspartate Amino Transferase 28 U/L (17-59); Bilirubin,Total 0.8 mg/dl (0.2-1.3); Carbon Dioxide 23 mmol/L (22.0-30.0); Globulin 3.1 g/dL (1.3-3.2); Total Protein,Serum 7.2 g/dl (6.3-8.2)
[2021-09-28 15:28] LABS: Calcium 8.5 mg/dl (8.4-10.2); Glucose 114 mg/dl (74-100)
[2021-09-28 15:35] LABS: NT Pro Brain Natriuretic Pep. 48.8 pg/mL (0-125)
[2021-09-28 15:48] LABS: Troponin I < 0.01 ng/ml (0.00-0.034)
--- NOTE | 2021-09-28 17:05 | PC.NURSE ---
Paged Dr. Fernandes for ED MD
== END 2021-09-28 18:06 | disposition home or self-care (01) ==
PROVIDERS: Emergency Provider Emergency Medicine; PCP Internal Medicine Adolescent Medicine
DX: J44.1 Chronic obstructive pulmonary disease with (acute) exacerbation (principal); R06.02 Shortness of breath; I10 Essential (primary) hypertension; N18.9 Chronic kidney disease, unspecified; E78.5 Hyperlipidemia, unspecified; F17.210 Nicotine dependence, cigarettes, uncomplicated; Z79.51 Long term (current) use of inhaled steroids; Z79.52 Long term (current) use of systemic steroids; Z79.899 Other long term (current) drug therapy; Z82.49 Family history of ischemic heart disease and other diseases of the circulatory system; Z83.438 Family history of other disorder of lipoprotein metabolism and other lipidemia
CPT/HCPCS: 71045; 80053; 83880; 84484; 85025; 93005; 99285

== ENCOUNTER 2021-10-06 20:09 | Emergency (ER) | payer MEDICARE, MEDICAID, SELFPAY ==
[2021-10-06] VITALS (7 sets, daily range): BP systolic 156–197; BP diastolic 70–91; PULSE 85–111; RESP 24; TEMP 36.8; O2SAT 94–96; BMI 34.7
--- NOTE | 2021-10-06 20:26 | XR_ITS ---
PROCEDURE INFORMATION: Exam: XR Chest Exam date and time: 10/06/2021 9:15 PM Age: 76 years old Clinical indication: Sternal or substernal pain; Additional info: Chest pain TECHNIQUE: Imaging protocol: XR of the chest. Views: 2 views. COMPARISON: CR XR CHEST PORTABLE 09/28/2021 2:38 PM FINDINGS: Lungs: Bibasilar pleuroparenchymal scarring/subsegmental atelectasis stable from prior exam. No consolidations or pleural effusions. Pleural spaces: Unremarkable. No pleural effusion. No pneumothorax. Heart/Mediastinum: Unremarkable. No cardiomegaly. Bones/joints: Unremarkable. IMPRESSION: No acute findings.
--- NOTE | 2021-10-06 20:33 | ECG_ITS ---
APPROVED REPORT Exam: Resting ECG HR:92 bpm ECG Measurements Heart Rate 92 AXES MI 145 P 74 QRSd 86 QRS 70 QT 334 T 74 QTc 383 Conclusion SINUS RHYTHM NORMAL ECG UNCONFIRMED REPORT Electronically signed by : Ben Fernandes MD 10/07/2021 08:15:43
[2021-10-06 20:44] LABS: ABG HCO3 21.4 mmhg (22.0-26.0); ABG Oxygen Saturation 97 % (90-100); ABG PH 7.43 mmol/L (7.35-7.45); ABG PO2 78.2 mmhg (80-100); ABG TCO2 22.4 mmhg (23-27)
[2021-10-06 20:45] LABS: Allen's Test Acceptable; Oxygen 2L %; Source Right Radial
[2021-10-06 21:14] LABS: Basophils # 0.2 K/mm3 (0-0.2); Basophils % 1.1 % (0.1-2.0); Eosinophils # 0.7 K/mm3 (0.0-0.4); Eosinophils % 4.4 % (0.1-12.0); Hematocrit 44.3 % (42.0-52.0); Hemoglobin 14.5 g/dL (14.1-18.0); Lymphocytes # 2.1 K/mm3 (0.7-4.5); Lymphocytes % 13.1 % (10-50); Mean Corpuscular HGB Conc 32.8 g/dL (31.8-35.4); Mean Corpuscular Hemoglobin 28.9 pg (27.0-31.2); Mean Corpuscular Volume 88.3 fl (80-94); Mean Platelet Volume 8.6 fl (7.4-10.4); Monocytes # 1.1 K/mm3 (0.1-1.0); Monocytes % 6.6 % (1.7-9.3); Neutrophils % 74.9 % (37.0-80.0); Platelet Count 389 K/mm3 (142-424); Red Blood Count 5.02 M/mm3 (4.60-6.20); Red Cell Distribution Width 16.3 % (11.5-17.5); White Blood Count 16.1 K/mm3 (4.8-10.8)
[2021-10-06 21:18] LABS: MANUAL DIFFERENTIAL MANUAL DIFFERENTIAL (MANUAL DIFF)
[2021-10-06 21:26] LABS: Alanine Aminotransferase 28 U/L (12-78); Albumin Level 3.9 g/dl (3.5-5.0); Albumin/Globulin Ratio 1.4 (1.1-1.8); Alkaline Phosphatase 78 U/L (38-126); Anion Gap 11.5 mEq/L (5-15); Aspartate Amino Transferase 23 U/L (17-59); Bilirubin,Total 0.5 mg/dl (0.2-1.3); Blood Urea Nitrogen 21 mg/dl (9-20); Calcium 8.7 mg/dl (8.4-10.2); Carbon Dioxide 22 mmol/L (22.0-30.0); Chloride 106 mmol/L (98-107); Creatinine Clearance Estimated 70 mL/min (50-200); Estimated Glomerular Filt Rate 50 ml/min (>60); GFR (African American) 60 ML/MIN (>60); Globulin 2.8 g/dL (1.3-3.2); Glucose 116 mg/dl (74-100); Lactic Acid 1.3 mmol/L (0.7-2.1); Potassium 4.5 mmoL/L (3.5-5.1); Sodium 135 mmol/L (136-145); Total Protein,Serum 6.7 g/dl (6.3-8.2)
[2021-10-06 21:31] LABS: Lymphocytes % 9 % (10-50); Monocytes % 1 % (2-9); Neutrophils % 86 % (42-76); Platelet Estimate Normal; RBC Morphology Normal; Total Cells Counted 100
[2021-10-06 21:36] LABS: NT Pro Brain Natriuretic Pep. 79.9 pg/mL (0-125)
[2021-10-06 21:42] LABS: Troponin I < 0.01 ng/ml (0.00-0.034)
[2021-10-06 21:45] LABS: Erythrocyte Sedimentation Rate 19 mm/hr (0-20); Procalcitonin 0.115 ng/mL (0.0-2.0)
--- NOTE | 2021-10-06 23:24 | HMH.EDSOB ---
ED Disposition Clinical Impression: Acute exacerbation of chronic obstructive airways disease Disposition: Home, Self-Care Condition on Discharge: Good Instructions: DI for Chronic Obstructive Pulmonary Disease Additional Instructions: see pcp for follow up Referrals: Ben Fernandes MD [Primary Care Provider] - - Critical Care Critical Care Time: No Attestation: On 10/06/21, the high probability of a clinically significant, sudden or life threatening deterioration of the following system(s) required my full and direct attention, intervention and personal management. The time I documented below is in addition to time spent performing reported procedures but includes the following listed in this critical care notation. Medical Decision Making - Medical Records Medical records reviewed: Yes: I reviewed the patient's medical records. - Diallo Inquiry Pt receiving controlled substance: No Vital Signs: 10/06/21 20:18 10/06/21 20:50 Temperature 98.3 F Temperature Source Oral Pulse Rate 96 H Pulse Rate [Left Radial] 111 H Respiratory Rate 24 Blood Pressure [Right Arm] 156/70 H Blood Pressure Mean [Right Arm] 98 02 Sat by Pulse Oximetry 94 L Oxygen Delivery Method Nasal Cannula Oxygen Flow Rate (LPM) 2 - Lab Data Lab results reviewed: Yes: I reviewed the patient's lab results. Lab Results 10/06/21 20:29: Specimen Source Right radial, O2 % 2l, ABG pH 7.43, ABG pCO2 33.0 L, ABG pO2 78.2 L, ABG HCO3 21.4 L, ABG Total CO2 22.4 L, ABG O2 Saturation 97, ABG Base Excess -3.0 L, Yomi Test Acceptable 10/06/21 21:00: WBC 16.1 H, RBC 5.02, Hgb 14.5, Hct 44.3, MCV 88.3, MCH 28.9, MCHC 32.8, RDW 16.3, Plt Count 389, MPV 8.6, Neut % (Auto) 74.9, Lymph % (Auto) 13.1, [place] % (Auto) 6.6, Eos % (Auto) 4.4, Baso % (Auto) 1.1, Neut # (Auto) 12.0 H, Lymph # (Auto) 2.1, [place] # (Auto) 1.1 H, Eos # (Auto) 0.7 H, Baso # (Auto) 0.2, Total Counted 100, Neutrophils % (Manual) 86 H, Band Neutrophils % 4.0, Lymphocytes % (Manual) 9 L, Monocytes % (Manual) 1 L, Platelet Estimate Normal, RBC Morphology Normal, ESR 19 10/06/21 21:00: Sodium 135 L, Potassium 4.5, Chloride 106, Carbon Dioxide 22, Anion Gap 11.5, BUN 21 H, Creatinine 1.40 H, Estimated Creat Clear 70, Estimated GFR 50 L, Est GFR ( Amer) 60, Glucose 116 H, Calcium 8.7, Total Bilirubin 0.5, AST 23, ALT 28, Alkaline Phosphatase 78, Troponin I < 0.01, C-Reactive Protein 17.0 H, Total Protein 6.7, Albumin 3.9, Globulin 2.8, Albumin/Globulin Ratio 1.4, Procalcitonin 0.115 10/06/21 21:00: NT-Pro-B Natriuret Pep 79.9 10/06/21 21:00: Lactate 1.3 10/06/21 23:05: Troponin I < 0.01 Result diagrams: 10/06/21 21:00 10/06/21 21:00 Orders (Tests/Meds): ED MEDICATIONS Discontinued Medications Generic Name Dose Route Start Last Admin Trade Name Freq PRN Reason Stop Dose Admin Albuterol/Ipratropium 3 ml 10/06/21 20:28 10/06/21 20:40 Ipratropium/Albuterol 3 Ml Neb 10/06/21 20:29 3 ml ONCE ONE Administration Methylprednisolone Sodium Succinate 125 mg 10/06/21 23:31 10/06/21 23:33 Methylprednisolone Sod Succ 125mg Vial IV 10/06/21 23:32 125 mg ONCE ONE Administration ORDERS Category Date Time Status Troponin I Q3H Lab 10/07/21 02:30 Ordered - Radiology Data #1 Image(s): Chest Image Reviewed: Yes I have reviewed radiologist's interpretation Preliminary Findings: Normal/NAD - ECG Data Tracing #1 Normal Sinus Rhythm: Yes Ischemic changes: non-specific ST-T wave changes Medical Decision Narrative: has acute excerbation of copd and possible element of chf but stable exam and labs will ask pt to see pcp and card and recheck if needed Resp/SOB HPI - General Chief Complaint: Shortness of Breath/Dyspnea Stated Complaint: SOA Time Seen by Provider: 10/06/21 23:24 Mode of Arrival: Ambulatory Source of Information: Patient, Relative, Medical Record Limitations: No Limitations Description of Symptoms (Recalled from ER
[2021-10-06 23:37] LABS: Troponin I < 0.01 ng/ml (0.00-0.034)
[2021-10-07] VITALS: BP 157/79; PULSE 85; PULSE 90; RESP 20; TEMP 36.8; O2SAT 93
--- NOTE | 2021-10-07 00:05 | PC.NURSE ---
PT AWARE OF PLAN TO DISCHARGE. NO COMPLAINTS VOICED. PT STATES THAT SHORTNESS OF AIR HAS IMPROVED. WCM.
== END 2021-10-07 00:14 | disposition home or self-care (01) ==
PROVIDERS: Emergency Provider Emergency Medicine; PCP Internal Medicine Adolescent Medicine
DX: J44.1 Chronic obstructive pulmonary disease with (acute) exacerbation (principal); I10 Essential (primary) hypertension; E78.5 Hyperlipidemia, unspecified; F17.210 Nicotine dependence, cigarettes, uncomplicated; Z79.899 Other long term (current) drug therapy
CPT/HCPCS: 36415; 71046; 80053; 82803; 83605; 83880; 84145; 84484; 85007; 85025; 85651; 86140; 93005; 96374; 96375; 99284

== ENCOUNTER → 2021-10-17 10:48 | Outpatient (CLI) | payer MEDICARE, MEDICAID, SELFPAY ==
--- NOTE | 2021-10-17 | CA_ITS ---
APPROVED REPORT EXAM: Comprehensive 2D, Doppler, and color-flow Echocardiogram Extraction Machine Operator: ELIZABETH/MAURA Ht: 5 ft 9 in Wt: 240lbs BSA: 2.23 BP: 156/70 mmHg Indications: COPD , Pedal edema, SOA, RICHARDS, HTN, HLD Echo Enhancing Agent Comments: No contrast employed due to lack of window with lung impedence 2D Dimensions IVSd 1.16 cm LVEF (Visual) 70.70 % PWd 1.26 cm LVDd 4.46 cm LVDs 2.68 cm Aortic Root 3.21 cm Left Atrium 3.43 cm LVOT 1.77 cm (M/F) 1.5-2.5 LV Diastology E Decel Time 180.00 (160-240 msec) E/A Ratio 0.96 MED E' 6.50 (< 7 cm/sec) MED A' 9.60 cm/s E'/MED E' Ratio 11.74 (>14) LAT E' 10.20 (<10 cm/sec) LAT A' 16.30 cm/s E/LAT E' Ratio 7.48 (>14) Aortic Valve LVOT Max 150.00 (70-110 cm/s) LVOT VTI 25.68 cm AoV Peak Damion. 182.00 (50-130 cm/s) AO Peak GR. 13.20 mmHg AO Mean GR. 6.50 (<5 mmHg) AO VTI 25.44 (18-25 cm) NAS (VTI) 2.48 (2.5-4.5 cm2) Mitral Valve MV A Velocity 79.00 (40-130 cm/s) E/A Ratio 0.96 MV Decel. Time 180.00 (160-240 ms) MV PHT 67.00 ms Pulmonary Valve PV Peak Velocity 111.00 (50-150 cm/s) Tricuspid Valve TR P. Velocity 179.00 cm/s RAP Estimate 10.00 mmHg RVSP 22.90 mmHg Left Ventricle Technically very difficult study because of the patient factors and poor acoustic windows. Left atrium is mildly enlarged, left ventricle is normal size, mild concentric left ventricular hypertrophy, estimated ejection fraction 55% with no regional wall motion abnormality, grade 1 diastolic dysfunction seen without tissue Doppler evidence of raise left atrial pressure. Right Ventricle Right atrium and right ventricle are mildly enlarged with normal contractility. Aortic Valve Aortic valve is minimally thickened and fibrosed there is no aortic stenosis or aortic insufficiency. Mitral Valve Mitral valve grossly normal, there is trace mitral regurgitation. Tricuspid Valve Tricuspid grossly normal, there is trace tricuspid regurgitation, tricuspid regurgitation jet velocity is inadequate for calculation of the right ventricular systolic pressure. Pulmonic Valve Pulmonic valve is poorly visualized. Great Vessels Aortic root is normal size. Inferior vena cava is poorly visualized. Pericardium No significant pericardial effusion noted. Conclusion 1. Technically difficult study because of the patient factors and poor acoustic windows. 2. Mild biatrial enlargement, normal left ventricular size, mild concentric left ventricular hypertrophy, visually estimated ejection fraction 55% with no regional wall motion abnormality, grade 1 diastolic dysfunction seen without tissue Doppler evidence of raise left atrial pressure. 3. Mildly enlarged right ventricle with normal contractility. 4. Trace mitral and tricuspid regurgitation. 5. No significant pericardial effusion. 6. Inferior vena cava is poorly visualized. Electronically signed by : Cornelio Neely MD 10/17/2021 20:23:47
== END ==
PROVIDERS: PCP Internal Medicine Adolescent Medicine; Visit Provider Internal Medicine Adolescent Medicine
DX: R06.02 Shortness of breath (principal); R60.9 Edema, unspecified
CPT/HCPCS: 93306

== ENCOUNTER 2022-05-11 14:53 | Emergency (ER) | payer MEDICARE, MEDICAID, SELFPAY ==
[2022-05-11] VITALS (8 sets, daily range): BP systolic 117–155; BP diastolic 56–75; PULSE 88–100; RESP 18–20; TEMP 36.6–36.7; O2SAT 90–95; BMI 34.0
--- NOTE | 2022-05-11 14:54 | CT_ITS ---
PROCEDURE INFORMATION: Exam: CT Lumbar Spine Without Contrast Exam date and time: 05/11/2022 3:59 PM Age: 77 years old Clinical indication: Low back pain; Additional info: Renal tumor, back pain TECHNIQUE: Imaging protocol: Computed tomography of the lumbar spine without contrast. Radiation optimization: All CT scans at this facility use at least one of these dose optimization techniques: automated exposure control; mA and/or kV adjustment per patient size (includes targeted exams where dose is matched to clinical indication); or iterative reconstruction. COMPARISON: CT THORACIC SPINE WO CON 05/11/2022 3:55 PM FINDINGS: Bones/joints: Moderate facet hypertrophy at L4-L5 with accompanying ligamentum flavum hypertrophy. Spinal canal suboptimally visualized secondary to technique. Mild stenosis suggested. This is in part secondary to accompanying broad-based in lateral disc bulge. Kidneys and ureters: Incomplete visualization of poorly defined right renal mass. Please see CT abdomen pelvis with contrast report for further discussion. Vasculature: Scattered regions of atherosclerotic vascular calcification within the abdominal aorta and common iliac arteries. Soft tissues: Unremarkable. IMPRESSION: 1. No evidence of acute osseous injury. 2. Findings suggesting at least mild spinal stenosis at L4-L5 secondary to combined disc bulge and ligamentum flavum hypertrophy. Findings not optimally visualized. Consider follow-up if appropriate with magnetic resonance imaging. 3. Incomplete visualization of poorly defined right renal mass. Please see CT abdomen pelvis with contrast report for further discussion. COMMENTS: Consistent with the [employer]'s Incidental Findings Committee white paper (J Am Lori Radiol 2018): Any incidental renal lesion less than 1 cm or classified as too small to characterize, or any incidental cystic renal lesion characterized as simple-appearing, is likely benign. No follow-up imaging is recommended for these lesions per consensus recommendations based on imaging criteria.
--- NOTE | 2022-05-11 14:54 | CT_ITS ---
PROCEDURE INFORMATION: Exam: CT Thoracic Spine Without Contrast Exam date and time: 05/11/2022 3:55 PM Age: 77 years old Clinical indication: Pain in thoracic spine; Additional info: Renal tumor, back pain TECHNIQUE: Imaging protocol: Computed tomography of the thoracic spine without contrast. Radiation optimization: All CT scans at this facility use at least one of these dose optimization techniques: automated exposure control; mA and/or kV adjustment per patient size (includes targeted exams where dose is matched to clinical indication); or iterative reconstruction. COMPARISON: CT CERVICAL SPINE WO CON 05/11/2022 3:53 PM FINDINGS: Bones/joints: There is a mild S-shaped scoliosis of the thoracic spine. No evidence of a compression deformity. Soft tissues: Unremarkable. Vasculature: Regions of atherosclerotic vascular calcification involving the aortic arch. Ascending aorta measuring approximately 3.9 cm at the level of the main pulmonary artery. Lungs: Centrilobular emphysema. Incomplete visualization of regions of parenchymal scarring and/or atelectasis right upper lobe. Densely calcified granuloma left lower lobe. Heart: Coronary artery calcification. Kidneys and ureters: Inadequate visualization of a right renal mass. Please see CT abdomen report for further discussion. Other findings: There is image degradation secondary to excessive motion artifact. IMPRESSION: 1. No evidence of a compression deformity. 2. Ascending aorta measuring approximately 3.9 cm at the level of the main pulmonary artery. 3. Study limited secondary excessive motion artifact.
--- NOTE | 2022-05-11 14:54 | CT_ITS ---
PROCEDURE INFORMATION: Exam: CT Abdomen And Pelvis With Contrast Exam date and time: 05/11/2022 4:01 PM Age: 77 years old Clinical indication: Abdominal pain; Additional info: Renal tumor, large chronic hernia, abd/back pain TECHNIQUE: Imaging protocol: Computed tomography of the abdomen and pelvis with contrast. Radiation optimization: All CT scans at this facility use at least one of these dose optimization techniques: automated exposure control; mA and/or kV adjustment per patient size (includes targeted exams where dose is matched to clinical indication); or iterative reconstruction. Contrast material: ISOVUE; Contrast volume: 75 ml; Contrast route: IV; COMPARISON: CT ABDOMEN WO CON 09/27/2021 2:01 PM FINDINGS: Lungs: Centrilobular emphysema. Liver: hepatic steatosis. Gallbladder and bile ducts: Gallbladder sludge. Pancreas: Normal. No ductal dilation. Spleen: Normal. No splenomegaly. Adrenal glands: Normal. No mass. Kidneys and ureters: Poorly defined predominantly solid mass involving the right renal cortex with extension into the peripelvic region as well demonstration of an exophytic component along the posterior and inferior margin. This measures approximately 9.5 cm in AP dimensions by 6.3 cm in transverse dimensions by 6.5 cm in length. This has slightly increased in size since 09/27/2021. Stomach and bowel: See Soft tissues finding. Appendix: No evidence of appendicitis. Intraperitoneal space: See Soft tissues finding. Vasculature: Scattered regions of atherosclerotic vascular calcification within the abdominal aorta and common iliac arteries. The mass effaces the right renal artery. Lymph nodes: Unremarkable. No enlarged lymph nodes. Urinary bladder: Unremarkable as visualized. Reproductive: Unremarkable as visualized. Bones/joints: Unremarkable. No acute fracture. Soft tissues: The exophytic component is in close proximity to the right psoas muscle but does not efface the muscle bundle. There is increase in the size of the previously demonstrated ventral hernia. The defect measures 4.5 cm in transverse dimensions. There is an increase in the number of fluid-filled small bowel loops. There is associated mild stranding of the mesenteric fat both within the hernia as well as within the abdomen proximal to the hernia. IMPRESSION: 1. Prominent ventral hernia with increase in the number of fluid-filled bowel loops. Associated findings compatible with incarceration. 2. Poorly defined right renal neoplasm measuring approximately 9.5 cm in AP dimensions by 6.3 cm in transverse dimensions by 6.5 cm in length. Slight increase in size since 09/27/2021. Findings considered malignant until proven otherwise. Urologic consult recommended. 3. Consider follow-up with magnetic resonance imaging with contrast to further evaluate tumor extension.
--- NOTE | 2022-05-11 14:54 | CT_ITS ---
PROCEDURE INFORMATION: Exam: CT Head Without Contrast Exam date and time: 05/11/2022 3:49 PM Age: 77 years old Clinical indication: Pain; Headache; Additional info: Abd pain/back pain/renal tumor TECHNIQUE: Imaging protocol: Computed tomography of the head without contrast. Radiation optimization: All CT scans at this facility use at least one of these dose optimization techniques: automated exposure control; mA and/or kV adjustment per patient size (includes targeted exams where dose is matched to clinical indication); or iterative reconstruction. COMPARISON: No relevant prior studies available. FINDINGS: Limitations: The study is mildly limited due to patient motion artifact. Brain: There is no acute intracranial hemorrhage, cerebral edema, or midline shift. Chronic microvascular ischemic changes are seen in the periventricular white matter. Age-related cerebral and cerebellar volume loss is present. Cerebral ventricles: No hydrocephalus. Paranasal sinuses: Moderate mucosal thickening is present in the ethmoid and right frontal sinuses. Mastoid air cells: The right mastoid air cells are clear. Poor pneumatization of the left mastoid is likely due to remote/chronic inflammation. Orbital cavities: The included orbital structures are unremarkable. Parotid and submandibular glands: Parotid glands: There is a nonspecific 18 x 12 x 9 mm lesion or mildly enlarged lymph node in the right parotid gland. Follow-up is suggested. Bones/joints: No acute fracture. Soft tissues: Unremarkable. Vasculature: Atherosclerotic calcifications are seen involving the cavernous carotid arteries. IMPRESSION: 1. No acute intracranial abnormality. 2. Atrophy and chronic deep white matter ischemic changes.
--- NOTE | 2022-05-11 14:54 | CT_ITS ---
PROCEDURE INFORMATION: Exam: CT Cervical Spine Without Contrast Exam date and time: 05/11/2022 3:53 PM Age: 77 years old Clinical indication: Neck pain; Additional info: Renal tumor, back pain TECHNIQUE: Imaging protocol: Computed tomography of the cervical spine without contrast. Radiation optimization: All CT scans at this facility use at least one of these dose optimization techniques: automated exposure control; mA and/or kV adjustment per patient size (includes targeted exams where dose is matched to clinical indication); or iterative reconstruction. COMPARISON: CT HEAD/BRAIN WO CON 05/11/2022 3:49 PM FINDINGS: Bones/joints: No acute cervical spine fracture is identified. Alignment is anatomic. Moderate/severe degenerative changes of the cervical spine are present. There is no severe spinal canal stenosis. Multilevel neural foraminal narrowing from uncinate spurring and facet arthropathy is noted. Lungs: Scarring is present in the lung apices. Soft tissues: Unremarkable. IMPRESSION: 1. No acute abnormality. 2. Chronic findings as discussed above.
--- NOTE | 2022-05-11 15:01 | [facility].EDGENADL ---
Discharge Plan Disposition Patient Disposition: Xfer Short-Term Hosp Condition: Serious Chief Complaint: PAIN Prescriptions Prescriptions: No Action amlodipine 10 MG tablet 10 mg PO DAILY cholecalciferol (vitamin D3) 1,000 UNIT capsule 2,000 unit PO DAILY pantoprazole 40 MG tablet,delayed release (DR/EC) 40 mg PO BID 60 Days 0RF hydrochlorothiazide 25 MG tablet 25 mg PO DAILY ipratropium-albuterol 3 ML solution for nebulization 3 ml IH TID aspirin 81 MG tablet,delayed release (DR/EC) 81 mg PO DAILY cetirizine 10 MG tablet 10 mg PO DAILY fluticasone furoate-vilanterol 1 EACH blister with device 1 puff IH DAILY Label Comments: INHALE 1 PUFF BY MOUTH ONCE DAILY Referrals Follow up/Referrals: Ben Fernandes MD [Primary Care Provider] - See instructions Clinical Impressions Clinical Impression: Incarcerated hernia, Back pain, Hypercalcemia, Leucocytosis, Other thrombocytosis Discharge ED Provider: Kam Law General Adult HPI General Chief complaint: PAIN Stated complaint: PAIN Time Seen by Provider: 05/11/22 15:01 Mode of Arrival: EMS Limitations: No Limitations Description of Symptoms (Recalled from ER Triage Doc. by RN): ABDOMINAL PAIN THAT RADIATES TO BACK THAT HES HAD FOR YEARS, PAIN WAS WORSE TODAY STARTING AT 1100 History of Present Illness HPI narrative: Patient is a 77-year-old male with past medical history of COPD not on home oxygen, reported right-sided renal tumor that patient declined intervention, chronic abdominal wall hernia, chronic abdominal back pain for multiple years who presents emergency department for evaluation of abdominal and back pain. Symptoms are moderate in severity, no worse than normal, radiate to each other. Abdominal pain is below the level of the umbilicus, patient presents because chiropractor was unable to make a house call he called 911 to present here for continued evaluation. Symptoms are refractory to Tylenol. Patient has been ambulatory, denies saddle anesthesia, denies acute incontinence, denies chest pain, shortness of breath is at baseline. Related Data Home Medications Medication Instructions Recorded Confirmed amlodipine 10 mg tablet 10 mg PO DAILY Hypertension 12/23/17 11/09/21 cholecalciferol (vitamin D3) 25 2,000 unit PO DAILY Supplement 12/23/17 11/09/21 mcg (1,000 unit) capsule hydrochlorothiazide 25 mg tablet 25 mg PO DAILY Edema 07/15/20 11/09/21 ipratropium 0.5 mg-albuterol 3 mg 3 ml IH TID soa 07/15/20 11/09/21 (2.5 mg base)/3 mL nebulization soln aspirin 81 mg tablet,delayed 81 mg PO DAILY CIRCULATION 07/16/20 11/09/21 release cetirizine 10 mg tablet 10 mg PO DAILY ALLERGIES 07/16/20 11/09/21 fluticasone furoate 200 1 puff IH DAILY Breathing problems 07/16/20 11/09/21 mcg-vilanterol 25 mcg/dose inhalation powder Previous Rx's Medication Instructions Recorded pantoprazole 40 mg tablet,delayed 40 mg PO BID GERD 60 days 12/26/17 release Allergies Allergy/AdvReac Type Severity Reaction Status Date / Time No Known Allergies Allergy Verified 11/09/21 14:30 [facility] Medical History (Updated 05/11/22 @ 19:12 by Kam Law MD) COPD (chronic obstructive pulmonary disease) Hernia Hypertension Family History (Updated 05/11/22 @ 15:10 by Angelique Reeves RN) Other No significant family history Social History (Updated 05/11/22 @ 15:10 by Angelique Reeves RN) Smoking Status: Former smoker second hand exposure: Yes alcohol intake: current substance use type: denies use current occupational status: retired Travel in the last 8 weeks: None household members: children housing: house current occupational exposures/hazards: No caffeine: Yes ROS Obtained: Yes Systems reviewed as appropriate & no additional complaints except as documented Physical Exam General General appearance: alert and in no apparent distress Madelyn
[2022-05-11 15:34] LABS: Basophils # 0.2 K/mm3 (0-0.2); Basophils % 0.8 % (0.1-2.0); Eosinophils # 0.5 K/mm3 (0.0-0.4); Hematocrit 38.5 % (42.0-52.0); Hemoglobin 11.8 g/dL (14.1-18.0); Lymphocytes # 2.7 K/mm3 (0.7-4.5); Lymphocytes % 11.1 % (10-50); Mean Corpuscular HGB Conc 30.8 g/dL (31.8-35.4); Mean Corpuscular Hemoglobin 24.3 pg (27.0-31.2); Mean Corpuscular Volume 78.8 fl (80-94); Mean Platelet Volume 8.1 fl (7.4-10.4); Monocytes # 1.3 K/mm3 (0.1-1.0); Monocytes % 5.1 % (1.7-9.3); Neutrophils # 19.8 K/mm3 (1.8-7.8); Red Blood Count 4.88 M/mm3 (4.60-6.20); White Blood Count 24.5 K/mm3 (4.8-10.8)
[2022-05-11 15:35] LABS: Chloride 101 mmol/L (98-107)
[2022-05-11 15:36] LABS: Potassium 4.7 mmoL/L (3.5-5.1); Sodium 138 mmol/L (136-145)
[2022-05-11 15:38] LABS: Blood Urea Nitrogen 27 mg/dl (9-20); Creatinine Clearance Estimated 59 mL/min (50-200); Estimated Glomerular Filt Rate 42 ml/min (>60); GFR (African American) 51 ML/MIN (>60)
[2022-05-11 15:39] LABS: Alanine Aminotransferase 36 U/L (12-78); Albumin Level 4.1 g/dl (3.5-5.0); Albumin/Globulin Ratio 0.8 (1.1-1.8); Alkaline Phosphatase 228 U/L (38-126); Anion Gap 19.7 mEq/L (5-15); Aspartate Amino Transferase 32 U/L (17-59); Bilirubin,Total 0.4 mg/dl (0.2-1.3); Carbon Dioxide 22 mmol/L (22.0-30.0); Globulin 4.9 g/dL (1.3-3.2); Glucose 159 mg/dl (74-100); Lipase 29 U/L (23-300)
[2022-05-11 15:44] LABS: Calcium 12.2 mg/dl (8.4-10.2); Platelet Count 1145 K/mm3 (142-424)
--- NOTE | 2022-05-11 15:44 | PC.NURSE ---
1544 CRITICAL CALCIUM 12.2 RECEIVED FROM SUSAN IN LAB. PT NAME AND R/V DR. PONCE NOTIFIED
[2022-05-11 15:46] LABS: MANUAL DIFFERENTIAL MANUAL DIFFERENTIAL (MANUAL DIFF)
--- NOTE | 2022-05-11 15:48 | ECG_ITS ---
APPROVED REPORT Exam: Resting ECG HR:87 bpm ECG Measurements Heart Rate 87 AXES QRSd 109 QRS 63 QT 339 T 65 QTc 384 Conclusion NSR Normal ecg UNCONFIRMED REPORT Electronically signed by : Ben Fernandes MD 05/12/2022 08:42:44
--- NOTE | 2022-05-11 15:49 | PC.NURSE ---
PT TO CT AT THIS TIME
--- NOTE | 2022-05-11 15:52 | PC.NURSE ---
PT GOING TO CT
--- NOTE | 2022-05-11 16:14 | PC.NURSE ---
PT RETURNED FROM CT
[2022-05-11 16:18] LABS: Lymphocytes % 27 % (10-50); Monocytes % 2 % (2-9); Neutrophils % 68 % (42-76); Nucleated Red Blood Cells 1; Platelet Estimate Marked Increase; Total Cells Counted 100
[2022-05-11 16:19] LABS: Hypochromasia 1+
--- NOTE | 2022-05-11 16:43 | PC.NURSE ---
PT RESTING COMFORTABLE AFTER DILAUDID
--- NOTE | 2022-05-11 17:25 | PC.NURSE ---
pt sleeping nothing needed
--- NOTE | 2022-05-11 17:45 | PC.NURSE ---
got pt a pillow
--- NOTE | 2022-05-11 17:56 | PC.NURSE ---
DR SCHULTZ PAGED
--- NOTE | 2022-05-11 18:00 | PC.NURSE ---
ED MD SPEAKING WITH PT, UPDATING ON POC
--- NOTE | 2022-05-11 18:07 | PC.NURSE ---
[facility] CALL BACK
--- NOTE | 2022-05-11 18:21 | PC.NURSE ---
PT MEDICATED PER EMAR, NO FURTHER NEEDS AT THIS TIME. FAMILY AT BEDSIDE
--- NOTE | 2022-05-11 18:33 | PC.NURSE ---
2ND CALL OUT TO [facility]
--- NOTE | 2022-05-11 18:56 | PC.NURSE ---
neeru alvarez speaking with [facility]
--- NOTE | 2022-05-11 19:10 | PC.NURSE ---
ED MD SPEAKING WITH PT AND FAMILY DISCUSSING POC
--- NOTE | 2022-05-11 19:19 | PC.NURSE ---
REPORT GIVEN TO REMINGTON, PRODUCTION HELPER NURSE AT ED
[2022-05-11 19:31] LABS: Coronavirus 19, PCR Not Detected (NotDetected); Influenza A, PCR Not Detected (NotDetected); Influenza B, PCR Not Detected (NotDetected)
--- NOTE | 2022-05-11 20:01 | PC.NURSE ---
pt refusing to have NG insertion re-attempted but he does c/o being unable to urinate. MD made aware and verbal order for patel insertion obtained.
[2022-05-11 20:36] LABS: Microscopic, Urine URINE MICROSCOPIC (MICROSCOPIC)
--- NOTE | 2022-05-11 20:46 | PC.NURSE ---
Patient continually coughed following ng placement. Chest xray confirmed that ng was not in the correct location. NG removed immediately by md. Patient refused to have it replaced.
[2022-05-11 20:52] LABS: Appearance,Urine CLEAR (Clear); Bilirubin,Urine Negative (Negative); Blood, Urine Negative (Negative); Color,Urine YELLOW (Yellow); Glucose,Urine (UA) Negative (Negative); Ketones,Urine Negative (Negative); Leukocyte Esterase,Urine Negative (Negative); Nitrate,Urine Negative (Negative); Protein,Urine TRACE (Negative); Urobilinogen,Urine 0.2 EU/dl (0.2)
[2022-05-11 20:58] LABS: WBC,Urine Occasional #/hpf (0-3)
== END 2022-05-11 20:24 | disposition short-term general hospital (02) ==
PROVIDERS: Emergency Provider Emergency Medicine; PCP Internal Medicine Adolescent Medicine
DX: D75.838 Other thrombocytosis (principal); D72.829 Elevated white blood cell count, unspecified; E83.52 Hypercalcemia; K46.0 Unspecified abdominal hernia with obstruction, without gangrene; Z87.891 Personal history of nicotine dependence; I10 Essential (primary) hypertension; J44.9 Chronic obstructive pulmonary disease, unspecified; N18.9 Chronic kidney disease, unspecified
CPT/HCPCS: 51702; 70450; 71045; 72125; 72128; 72131; 74177; 80053; 81001; 83605; 83690; 85007; 85025; 93005; 96365; 96367; 96375; 96376; 99291; C9803; J0131; J2405; J2543; Q9967; U0003; U0005